=== PATIENT | male | born 1940 | race Caucasian/White ===

== ENCOUNTER 2016-10-24 16:00 | Emergency (ER) | payer OTHER, MEDICARE ==
[~2016-10-24] VITALS: Ht 188 cm; Wt 69.5 kg
[~2016-10-24 16:00] MED LIST: AMLO-114 PO; ASPCH81 PO; HYT/2 PO; LSN/2025 PO; SIMV10TA2 PO; TERA5CAP PO
[2016-10-24 16:23] VITALS: TEMP 37; Ht 188 cm; Wt 69.5 kg
[2016-10-24] MEDS ORDERED: SODIUM CHLORIDE 0.9% 1000ML 1,000 ML IV STA (17:27)
[2016-10-24 17:40] LABS: URINE APPEARANCE CLEAR (CLEAR); URINE BILIRUBIN NEG (NEG); URINE COLOR YELLOW; URINE NITRITE NEG (NEG); URINE SPECIFIC GRAVITY 1.015 (1.000-1.030); UROBILINOGEN NEG (NEG); ZZUR CULT IF INDIC CLEAN CATCH NO
[2016-10-24 17:41] LABS: BASO % 0.3 %; BASO ABS # 0.02 K/uL (0-0.2); COMPLETE YES; EOS % 2.5 %; HEMATOCRIT 39.4 % (42-52); LYMPH % 23.3 %; LYMPH ABS # 1.41 K/uL (1.2-3.4); MEAN CELL VOLUME 93.8 fL (80-100); MEAN CORPUSCULAR HEMOGLOBIN 33.1 pg (25-34); MEAN CORPUSCULAR HGB CONC 35.3 g/dl (32-36); MEAN PLATELET VOLUME 10.3 fL (7.4-10.4); MONO % 10.4 %; NEUT % 63.5 %; PLATELET COUNT 175 K/uL (130-400); WHITE BLOOD COUNT 6.05 K/uL (4.8-10.8)
[2016-10-24 17:42] LABS: MANUAL MICROSCOPIC REQUIRED? NO; REVIEW REQ? NO
[2016-10-24] MEDS ORDERED: OPTIRAY 320 IV PRN (17:45)
[2016-10-24] MEDS ORDERED: ASPCH81X PO (17:46)
[2016-10-24 17:58] LABS: BUN/CREATININE RATIO 13.9 (10-20); CALCIUM 9.3 mg/dl (8.5-10.1); POTASSIUM 3.4 mmol/L (3.5-5.1)
--- NOTE | 2016-10-24 18:51 | DIAGNOSTIC IMAGING REPORT ---
ABDOMEN AND PELVIS CT WITH IV CONTRAST CT DOSE: 418.05 mGy.cm HISTORY: Pain lower abd pain TECHNIQUE: Multiaxial CT images of the abdomen and pelvis were performed following the use of intravenous contrast. COMPARISON STUDY: 12/19/2015 FINDINGS: Dependent bibasilar atelectasis. Liver spleen and pancreas are unremarkable. Kidneys are negative for hydronephrosis. Several cysts are unchanged. Bowel pattern is considered nonobstructive. The may be a component of mild enteritis. Mild wall edema of components of the sigmoid. A nonspecific colitis is considered. There are again no obstructive characteristics. There is no evidence for abscess or collection. IMPRESSION: 1. Nonspecific sigmoid colitis. No evidence for abscess or collection. 2. No evidence for abscess collection or obstruction. 3. Stable hepatic and renal cysts. Electronically signed by: Kristopher Suarez M.D. 10/24/2016 6:50 PM Dictated Date/Time: 10/24/2016 6:47 PM
[2016-10-24 22:14] VITALS: BP 124/79; PULSE 61; O2SAT 97
--- NOTE | 2016-10-24 23:42 | EMERGENCY ROOM VISIT NOTE ---
History Report prepared by Idris: Naomi Pacheco Under the Supervision of: Dr. Denis Echavarria M.D. First contact with patient: 16:56 Chief Complaint: ABDOMINAL PAIN Stated Complaint: ABDOMINAL PAIN Nursing Triage Summary: Pt and state that pt has been having abd pain since aug. He thought he had the flu but lower abd pain has worsened. Denies recent N/V/D. Denies urinary symptoms. History of Present Illness The patient is a 76 year old male who presents to the Emergency Room with complaints of worsening constant lower abdominal pain that started about 1.5 months ago. He rates his discomfort as a 6-7/10 in severity. The patient states that the pain originally started in the end of last August. He thought that it was something viral, but today the pain got more severe. [facility] that he come into the ED for further evaluation. The patient states that [facility] has [facility]. The patient is also experiencing persistent diarrhea, but he has not had any stool samples done. Pt denies LOC, headache, fevers, chills, diaphoresis , visual changes, neck pain, chest pain, breathing difficulties, nausea, vomiting, back pain, melena, hematochezia, urinary symptoms, numbness, weakness , rash, or other complaints. The patient is unsure of when his most recent colonoscopy was. Source of History: patient Onset: about 1.5 months ago Position: abdomen (lower) Symptom Intensity: 6-7/10 Timing: intermittent, worsening Associated Symptoms: + diarrhea Review of Systems See HPI for pertinent positives and negatives. A total of ten systems were reviewed and were otherwise negative. Past Medical & Surgical Medical Problems: (1) Hypertension Surgical Problems: (1) History of appendectomy (2) History of tonsillectomy Family History FHx: myocardial infarction Social History Smoking Status: Former Smoker Alcohol Use: occasionally Drug Use: none Marital Status: Housing Status: lives with family Occupation Status: retired Current/Historical Medications Scheduled Amlodipine (Norvasc), 10 MG PO DAILY Aspirin (Aspirin Chewable), 81 MG PO DAILY Hctz/Lisinopril (Lisinopril/Hctz 20/25 Mg), 1 TAB PO DAILY Simvastatin (Zocor), 10 MG PO HS Terazosin (Hytrin), 5 MG PO HS Terazosin Hcl (Hytrin), 2 MG PO HS Allergies Coded Allergies: Hydromorphone (Verified Adverse Reaction, Intermediate, GI SYMPTOMS, ) nausea and vomiting Physical Exam Vital Signs Date Time Temp Pulse Resp B/P Pulse Ox O2 Delivery O2 Flow Rate FiO2 10/24/16 22:14 61 16 124/79 97 10/24/16 19:30 61 16 130/68 96 10/24/16 17:55 56 10/24/16 17:45 58 16 128/68 94 Room Air 10/24/16 16:23 37.0 70 20 139/70 96 Room Air Physical Exam GENERAL: Awake, alert, well-appearing, in no distress HENT: Normocephalic, atraumatic. Oropharynx unremarkable. EYES: Normal conjunctiva. Sclera non-icteric. NECK: Supple. No nuchal rigidity. FROM. No JVD. RESPIRATORY: Clear to auscultation. CARDIAC: Regular rate, normal rhythm. Extremities warm and well perfused. Pulses equal. ABDOMEN: Soft, non-distended. No tenderness to palpation. No rebound or guarding. No masses. RECTAL: Deferred. MUSCULOSKELETAL: Chest examination reveals no tenderness. The back is symmetrical on inspection without obvious abnormality. There is no CVA tenderness to palpation. No joint edema. LOWER EXTREMITIES: Calves are equal size bilaterally and non-tender. Trace edema. No discoloration. NEURO: Normal sensorium. No sensory or motor deficits noted. SKIN: No rash or jaundice noted. Medical Decision & Procedures ER Provider Diagnostic Interpretation: CT results as stated below per my review and radiologist interpretation ABDOMEN AND PELVIS CT WITH IV CONTRAST IMPRESSION: 1. Nonspecific sigmoid colitis. No evidence for abscess or collection. 2. No evidence for abscess collection or obstruction. 3. Stable hepatic and renal cysts. Electronically signed by: Kristopher Suarez M.D. 10/24/2016 6:50 PM Dictated Date/Time: 10/24/2016 6:47 PM Laboratory Results 10/24/16 17:10 Red Blood Count 4.20, Mean Corpuscular Volume 93.8, Mean Corpuscular Hemoglobin 33.1, Mean Corpuscular Hemoglobin Concent 35.3, Mean Platelet Volume 10.3, Neutrophils (%) (Auto) 63.5, Lymphocytes (%) (Auto) 23.3, Monocytes (%) (Auto) 10.4, Eosinophils (%) (Auto) 2.5, Basophils (%) (Auto) 0.3, Neutrophils # (Auto ) 3.84, Lymphocytes # (Auto) 1.41, Monocytes # (Auto) 0.63, Eosinophils # (Auto ) 0.15, Basophils # (Auto) 0.02 10/24/16 17:10 Test 10/24/16 17:10 10/24/16 17:14 White Blood Count 6.05 K/uL (4.8-10.8) Red Blood Count 4.20 M/uL (4.7-6.1) Hemoglobin 13.9 g/dL (14.0-18.0) Hematocrit 39.4 % (42-52) Mean Corpuscular Volume 93.8 fL (80-100) Mean Corpuscular Hemoglobin 33.1 pg (25-34) Mean Corpuscular Hemoglobin Concent 35.3 g/dl (32-36) Platelet Count 175 K/uL (130-400) Mean Platelet Volume 10.3 fL (7.4-10.4) Neutrophils (%) (Auto) 63.5 % Lymphocytes (%) (Auto) 23.3 % Monocytes (%) (Auto) 10.4 % Eosinophils (%) (Auto) 2.5 % Basophils (%) (Auto) 0.3 % Neutrophils # (Auto) 3.84 K/uL (1.4-6.5) Lymphocytes # (Auto) 1.41 K/uL (1.2-3.4) Monocytes # (Auto) 0.63 K/uL (0.11-0.59) Eosinophils # (Auto) 0.15 K/uL (0-0.5) Basophils # (Auto) 0.02 K/uL (0-0.2) RDW Standard Deviation 44.6 fL (36.4-46.3) RDW Coefficient of Variation 12.9 % (11.5-14.5) Immature Granulocyte % (Auto) 0.0 % Immature Granulocyte # (Auto) 0.00 K/uL (0.00-0.02) Anion Gap 9.0 mmol/L (3-11) Est Creatinine Clear Calc Drug Dose 59.8 ml/min Estimated GFR () 83.2 Estimated GFR (Non- 71.8 BUN/Creatinine Ratio 13.9 (10-20) Calcium Level 9.3 mg/dl (8.5-10.1) Total Bilirubin 1.5 mg/dl (0.2-1) Direct Bilirubin 0.3 mg/dl (0-0.2) Aspartate Amino Transf (AST/SGOT) 15 U/L (15-37) Alanine Aminotransferase (ALT/SGPT) 21 U/L (12-78) Alkaline Phosphatase 54 U/L (45-117) Total Protein 6.5 gm/dl (6.4-8.2) Albumin 3.9 gm/dl (3.4-5.0) Lipase 100 U/L (73-393) Urine Color YELLOW Urine Appearance CLEAR (CLEAR) Urine pH 6.0 (4.5-7.5) Urine Specific [place] 1.015 (1.000-1.030) Urine Protein NEG (NEG) Urine Glucose (UA) NEG (NEG) Urine Ketones NEG (NEG) Urine Occult Blood NEG (NEG) Urine Nitrite NEG (NEG) Urine Bilirubin NEG (NEG) Urine Urobilinogen NEG (NEG) Urine Leukocyte Esterase NEG (NEG) Date/Time Source Procedure Growth Status 10/24/16 19:00 Stool C.difficile Toxin B Gene (PCR) - Final No C. difficile toxin B gene detected Complete Laboratory results reviewed by me Medications Administered Medications (Trade) Dose Ordered Sig/Mei Route Start Time Stop Time Status Last Admin Dose Admin Sodium Chloride (Nss 1000ml) 1,000 ml @ 125 mls/hr Q8H STAT IV 10/24/16 17:27 10/24/16 23:02 DC 10/24/16 17:42 125 MLS/HR ED Course 1726: The patient was evaluated in room B2. A complete history and physical exam was performed. 1726: Ordered Sodium Chloride 1000 ml @ 125 mls/hr IV 2008: I reassessed the patient. I informed him that we are waiting on his C. Diff results. 2156: Discussed the patient's case with Dr. Jose A TODD. He will see the patient in the office for follow-up. 2204: I reevaluated the patient. Discussed results and discharge instructions: he verbalized understanding and agreement. The patient is ready for discharge. Medical Decision Triage Nursing notes reviewed. The patient's presentation and history were concerning for abdominal pain. Etiologies such as appendicitis, diverticulitis, obstruction, inflammatory bowel disease, renal colic, PUD, biliary pathology, pancreatitis, mesenteric ischemia, aortic pathology, infections, genitourinary, UTI, perforated viscus, as well as others were entertained. The patient was evaluated. His abdominal examination was rather benign. Stool culture was ordered. C. difficile was ordered. Laboratory testing performed. The patient underwent CT imaging. C. difficile seal testing was negative. His CBC, chemistry panel, LFTs and lipase were unremarkable. Laboratory testing revealed an unremarkable urinalysis. Stool culture pending. CT imaging didn't reveal a nonspecific colitis in the sigmoid. Consultation was made with gastroenterology, Dr. Naranjo. The case was discussed. The patient will be followed up in the office. He will be calling the office tomorrow. Dr. Naranjo asked for a face sheet with the patient's information to be faxed to the office. This was done. By the evaluation outlined above other emergent etiologies such as those listed in the differential, as well as others, were deemed relatively unlikely. The patient and were informed about the findings as listed above. All questions were answered and they were pleased with the treatment. Return instructions were outlined and the patient was discharged in stable condition. The patient was referred to gastroenterology for follow-up for a recheck of the current condition. The chart was completed utilizing [employer] Speech voice recognition software. Grammatical errors, random word insertions, pronoun errors, and incomplete sentences are an occasional consequence of this system due to software limitations, ambient noise, and hardware issues. Any formal questions or concerns about the content, text, or information contained within the body of this dictation should be directly addressed to the physician for clarification. Consults Time Called: 2114 Consulting Physician: Dr. Jose A TODD Returned Call: 2156 Discussed the patient's case with Dr. Jose A TODD. He will see the patient in the office for follow-up. Impression Primary Impression: Lower abdominal pain Additional Impression: Colitis Scribe Attestation The scribe's documentation has been prepared under my direction and personally reviewed by me in its entirety. I confirm that the note above accurately reflects all work, treatment, procedures, and medical decision making performed by me. Departure Information Dispostion Home / Self-Care Referrals No Doctor, Assigned (PCP) Forms HOME CARE DOCUMENTATION FORM, IMPORTANT VISIT INFORMATION Patient Instructions My [facility] Additional Instructions Diagnosis: 1. Colitis Acetaminophen(Tylenol) may be used for fever or pain. Use 1000mg every six hours as needed. Avoid using more than 4000mg in a 24 hour period. Rest and drink plenty of fluids as tolerated. Slow sips of water or sports drinks are recommended instead of large amounts all at once. Continue current medications. Return to the ER immediately for worsening or persistent abdominal pain, vomiting, fevers, chest pains, difficulty breathing, black or bloody stools, worsening of your condition, or as needed. Follow-up with Dr. Naranjo of gastroenterology. Call the office tomorrow morning around 8 AM for follow-up. The number is below. Follow up with your primary physician in 2-3 days for a recheck of your current condition. Problem Qualifiers
== END 2016-10-24 22:27 | disposition home or self-care (01) ==
LOC: C.EDB 16:01
DX: K52.9 Noninfective gastroenteritis and colitis, unspecified (principal); R10.30 Lower abdominal pain, unspecified; I10 Essential (primary) hypertension; Z79.82 Long term (current) use of aspirin; Z79.899 Other long term (current) drug therapy; Z98.890 Other specified postprocedural states; Z87.891 Personal history of nicotine dependence; Z88.5 Allergy status to narcotic agent

== ENCOUNTER 2018-04-26 09:13 | Emergency (ER) | payer OTHER, MEDICARE ==
[~2018-04-26] VITALS: Ht 188 cm; Wt 87.4 kg
[~2018-04-26 09:13] MED LIST changes: -AMLO-114 PO; +AMLO10TA3 PO; -ASPCH81 PO; +ASPCH81X PO; +LISI20TA11 PO; -LSN/2025 PO
[2018-04-26 09:18] VITALS: TEMP 36.7; Ht 188 cm; Wt 87.4 kg
[2018-04-26] MEDS ORDERED: CHOL1000 PO (10:32)
[2018-04-26] MEDS ORDERED: OMEG10007 PO (10:32)
[2018-04-26] MEDS ORDERED: RANI150T85 PO (10:32)
[2018-04-26] MEDS ORDERED: LISI20TA3 PO (10:32)
[2018-04-26 10:55] VITALS: BP 128/62; PULSE 56; O2SAT 96
--- NOTE | 2018-04-26 17:13 | EMERGENCY ROOM VISIT NOTE ---
History First contact with patient: 09:36 Chief Complaint: BACK PAIN Stated Complaint: BACK PAIN History of Present Illness The patient is a 78 year old white male who presents to the Emergency Room with complaints of intermittent back pain that has been present for several months. It has become worse at times. It was particularly severe this morning. Because it has been slowly getting worse, he thought he would come in and have it evaluated. No specific trauma. He denies any falls. He describes it as deep within the right flank. Right now it is mild. It does not seem to be reproducible. It may be slightly worse with certain motions. He states he cannot palpated. No difficulty with bowel or bladder function. He notes he does walk in a hunched over position due to his intermittent discomfort. No numbness or tingling. He denies any urinary symptoms. No other treatment. His accompanies him today. Review of Systems REVIEW OF SYSTEM: HEENT: No dizziness, visual problems, hearing loss, or tinnitus. There is no difficulty swallowing and no oral lesions are present. PULMONARY: No cough, shortness of breath, sputum production or hemoptysis. CARDIOVASCULAR: No chest pain, palpitations, shortness of breath or peripheral edema. GASTROINTESTINAL: No diarrhea, constipation, nausea, vomiting, or abdominal pain. GENITOURINARY: No dysuria, frequency, urgency or nocturia. NEUROLOGIC: No muscle tenderness, epilepsy or history of neurological problems. MUSCULOSKELETAL: No history of joint tenderness/swelling. Positive history of arthritis and arthralgias. SKIN: No rashes or lesions. PSYCHIATRIC: No history of depression or mental illness. ENDOCRINE: No history of diabetes, thyroid disorders, or abnormal hair growth. Past Medical/Surgical History Medical Problems: (1) Hypertension Surgical Problems: (1) History of appendectomy (2) History of tonsillectomy Dental surgery Family History FHx: myocardial infarction Significant for diabetes, heart disease, hypertension, cancer, lung disease, and seizures. Parents are . 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 Medications Scheduled Amlodipine (Norvasc), 10 MG PO DAILY Aspirin (Aspirin Chewable), 81 MG PO DAILY Cholecalciferol (Vitamin D3), 1 TAB PO DAILY Fish Oil ([place]-3), 1 CAP PO DAILY Hctz/Lisinopril (Lisinopril/Hctz 20/25 Mg), 1 TAB PO DAILY Lisinopril (Prinivil), 20 MG PO DAILY Ranitidine (Zantac), 150 MG PO DAILY Simvastatin (Zocor), 10 MG PO HS Physical Exam Vital Signs Date Time Temp Pulse Resp B/P (MAP) Pulse Ox O2 Delivery O2 Flow Rate FiO2 04/26/18 10:55 56 18 128/62 96 04/26/18 09:18 36.7 67 20 118/69 97 Room Air Physical Exam General: Well-developed, well-nourished, elderly white male, in no acute distress. Laying on the bed. Alert and oriented. Skin: Warm and dry with good turgor. No rashes or lesions. No ecchymosis or erythema. The patient is not diaphoretic. No abrasions. Heart: Heart RRR. No MGR. Peripheral pulses are 2+. Lungs: Lungs are clear to auscultation. No crackles rhonchi or wheezing. Good air movement. The patient is able to take a deep breath. Abdomen: Abdomen was inspected, auscultated, and palpated. Bowel sounds present x 4. Soft, nontender to palpation. No suprapubic discomfort. No hepato-splenomegaly. No masses noted. No rebound. No pain over McBurney's point. No CVA tenderness. Musculoskeletal: Gross motor function of the upper and lower extremities is intact and unremarkable. Medical Decision & Procedures Laboratory Results Test 04/26/18 10:02 Urine Color YELLOW Urine Appearance CLEAR (CLEAR) Urine pH 7.5 (4.5-7.5) Urine Specific [place] 1.014 (1.000-1.030) Urine Protein NEG (NEG) Urine Glucose (UA) NEG (NEG) Urine Ketones NEG (NEG) Urine Occult Blood NEG (NEG) Urine Nitrite NEG (NEG) Urine Bilirubin NEG (NEG) Urine Urobilinogen NEG (NEG) Urine Leukocyte Esterase NEG (NEG) UA obtained today was unremarkable. No blood or leukocytes. ED Course Patient and his were educated regarding today's findings. Conservative care measures were discussed. UA was obtained on suspicion of ureteral stones. There was no blood or leukocytes. I did offer to perform additional lab work as well as CT scan imaging of his abdomen to rule out other sources of his discomfort. Patient opted for watchful waiting. This was discussed several times with him. He felt comfortable and decided to give it more time to see if his symptoms would resolve. He does not recall lifting anything heavy. No unusual activity. If symptoms recur he should follow-up with his PCP or return to the ED for any acute changes. This was discussed several times. He may use Tylenol every 6 hours as needed for mild discomfort. Medical Decision Likelihood for ureterolithiasis and UTI is low given his lab work. This was discussed with the patient. Possibility of referred pain, muscle strain, nephrolithiasis, nephritis, bowel issue, and intra-abdominal mass were also considered among others. Possibility that his symptoms are related to his stooped posture were discussed. Medication Reconcilliation Current Medication List: was personally reviewed by me Blood Pressure Screening Patient's blood pressure: Normal blood pressure Impression Primary Impression: Right flank pain Departure Information Dispostion Home / Self-Care Condition GOOD Forms HOME CARE DOCUMENTATION FORM, TYLENOL USE, IMPORTANT VISIT INFORMATION Patient Instructions My [facility] Additional Instructions Tylenol every 6 hours as needed for discomfort Low-dose Motrin 200-400 mg every 6 hours as needed for discomfort-take this with food Follow-up with your PCP this week for reexamination Return to the ED for any acute worsening of symptoms and consider lab work and further imaging Avoid any heavy lifting Gentle stretching daily
== END 2018-04-26 10:55 | disposition home or self-care (01) ==
LOC: C.EDB 09:16 → C.EDA 10:55
DX: R10.31 Right lower quadrant pain (principal); R10.11 Right upper quadrant pain; M54.9 Dorsalgia, unspecified; I10 Essential (primary) hypertension; Z87.891 Personal history of nicotine dependence; Z79.82 Long term (current) use of aspirin; Z79.899 Other long term (current) drug therapy

== ENCOUNTER 2021-02-15 13:11 | Observation (INO) ==
--- NOTE | 2021-02-15 14:36 | XRay Report ---
XR chest 1V portable HISTORY: 81 years-old Male Chest Pain acute atypical chest pain COMPARISON: Chest radiograph 04/22/2013 TECHNIQUE: Portable AP view of the chest FINDINGS: Cardiac mediastinal and hilar silhouettes are within normal limits. Calcified plaque of the thoracic aorta. No pneumothorax, pleural effusion, airspace consolidation or overt pulmonary edema. Spondyliti c spurring of the spine. IMPRESSION: No acute process. ACT 112: Negative or not required by law. The above report was generated using voice recognition software. It may contain grammatical, syntax o r spelling errors. Electronically signed by: eJt Worthington M.D. 02/15/2021 2:35 PM
--- NOTE | 2021-02-15 14:41 | Emergency Department Note ---
Impression & Plan Chest pain, Acute confusion ED Provider Note NAME: ANA MARIA ALMODOVAR AGE: 81 SEX: M : 1940 ARRIVES VIA: Walk-In INFORMANT: Patient, the patient's significant other ED PROVIDER(S): Dimitri Rosa DO CHIEF COMPLAINT: Chest pain HPI: The patient is an 81-year-old male who presented to the emergency department with his significant other for an evaluation of chest pain. The patient started having chest pain earlier. 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 The patient was doing well but then all of a sudden clutched his chest. According to his significant other he appeared to be in significant pain. The patient states that this lasted for approximately 1 hour. The pain really spontaneously. He denies having any shortness of breath. He has no pain at this time. He denies having any headache or recent trauma. The patient denies having any lower extremity swelling or pain. His significant other also gives part of the history and apparently they went to the primary care physician yesterday for routine evaluation. No medication changes were made. The patient denies having any recent traveling or exposure to COVID-19. He did not see a provider today prior to coming to the emergency department. ROS: See above HPI for pertinent positives & negatives. A total of 10 systems reviewed and were otherwise negative. PAST MEDICAL HISTORY: See Below PAST SURGICAL HISTORY: See Below FAMILY HISTORY: See Below SOCIAL HISTORY: See Below HOME MEDICATIONS: See Below ALLERGIES: See Below VITALS: See Below PHYSICAL EXAMINATION: GENERAL: Patient is awake alert in no acute distress patient is resting comfortably and showing no signs of anxiety EYES: The conjunctivae are clear. The pupils are round and reactive. EARS, NOSE, MOUTH AND THROAT: The nose is without any evidence of any deformity. NECK: The neck is nontender and supple. RESPIRATORY: Normal respiratory effort is noted there is no evidence of wheezing rhonchi or rales CARDIOVASCULAR: Regular rate and rhythm noted there no murmurs rubs or gallops normal S1 normal S2. GASTROINTESTINAL: The abdomen is soft. Abdomen is nontender. MUSCULOSKELETAL/EXTREMITIES: There is no evidence of gross deformity full range of motion is noted in the hips and shoulders. SKIN: There is no obvious evidence of any rash. There are no petechiae, pallor or cyanosis noted. NEUROLOGIC: The patient is awake and alert. The patient is oriented to person place but not time. He is able to do simple math at this time. There is no facial droop noted. Strength is symmetric. Patient has a steady gait. MEDICAL DECISION MAKING: The patient is an 81-year-old male who presented to the emergency department for an evaluation of chest pain. The patient had an acute onset of chest pain while at rest. The patient presented but had no pain upon presentation. He was also found to be confused while he was in the emergency department. This was a new finding for him and his significant other did not notice it earlier. I discussed the patient's laboratory and radiographic studies with him. I also discussed the limitations of the emergency department work-up for chest pain with him. Ultimately [facility] Given his age and comorbidities he may require further inpatient work-up. The patient was agreeable to this. Triage Nursing notes reviewed. Prior medical records reviewed Vital Signs: reviewed and remarkable for elevated blood pressure. Differential diagnosis: Cardiac ischemia, aortic dissection, pulmonary embolism, pneumothorax, pneumonia , pericarditis, myocarditis, esophageal rupture, GERD, cholecystitis, pancreatitis, musculoskeletal, as well as other pathologies. ER treatment provided: See below Diagnostics interpreted by me: ECG: EKG was obtained in the emergency department. My interpretation is normal sinus rhythm at 61 bpm. There were no PVCs noted. Right bundle branch block pattern was appreciated. This was compared to a tracing from April 162012. No significant changes were noted. Cardiac Monitoring: An order was placed for continuous cardiac monitoring. The monitor shows a rate of 65 bpm with sinus rhythm. Laboratory studies: As stated above and show below. Imaging studies: See below Consultation(s): 1725: I discussed this case with Dr. Gaitan who [facility] He will evaluate the patient in the emergency department. Past Med/Surg History Medical History (Updated 02/15/21 @ 20:32 by Dimitri Rosa DO) Colitis Hiatal hernia Hypertension Surgical History History of appendectomy History of tonsillectomy Social History Smoking Status: Former smoker Tobacco Type: Cigarettes Preferred Language: Peruvian Feels Safe at Home: Yes Allergies Allergies Allergy/AdvReac Type Severity Reaction Status Date / Time hydromorphone AdvReac Intermediate GI SYMPTOMS Verified 02/15/21 17:34 Home Meds Home Medications Medication Instructions Recorded Confirmed amlodipine 10 mg PO DAILY 02/15/21 02/15/21 aspirin [Aspirin Low Dose] 81 mg PO DAILY 02/15/21 02/15/21 cholecalciferol (vitamin D3) 25 mcg PO DAILY 02/15/21 02/15/21 [Vitamin D3] donepezil 10 mg PO HS 02/15/21 02/15/21 lisinopril-hydrochlorothiazide 1 tab PO DAILY 02/15/21 02/15/21 omega-3 fatty acids [Fish Oil 1,000 mg PO BID 02/15/21 02/15/21 Concentrate] terazosin 2 mg PO HS 02/15/21 02/15/21 terazosin 5 mg PO HS 02/15/21 02/15/21 Results & Data (ED) Vital Signs Vital Signs - 24 hr 02/15/21 13:16 02/15/21 13:19 02/15/21 14:34 Temperature 36.6 C Temperature Source Temporal Artery Scan Pulse Rate 77 56 L Pulse Rate [Left Radial] Pulse Rate from SpO2 Sensor 55 L Pulse Rhythm Pulse Rhythm [Left Radial] Pulse Strength [Left Radial] Respiratory Rate 18 18 Respiratory Effort / Characteristics Non-Labored Spontaneous Non-Labored Spontaneous Respiratory Depth Normal Normal Respiratory Pattern Regular Blood Pressure 125/68 118/65 Blood Pressure [Left Radial Artery] Blood Pressure Mean 87 82 Blood Pressure Mean [Left Radial Artery] Blood Pressure Position Sitting Blood Pressure Position [Left Radial Artery] Pulse Oximetry 98 98 Oxygen Delivery Method Room Air Room Air Oxygen Flow Rate Sepsis Recent Fever Within 48 Hours No Sepsis New/Unexplained Change in Mental Status N/A Sepsis Action Taken by Nursing No Action Required 02/15/21 14:36 02/15/21 14:46 02/15/21 15:00 Temperature Temperature Source Pulse Rate 55 L 63 56 L Pulse Rate [Left Radial] 63 Pulse Rate from SpO2 Sensor 55 L Pulse Rhythm Regular Pulse Rhythm [Left Radial] Regular Pulse Strength [Left Radial] Normal Respiratory Rate 18 20 17 Respiratory Effort / Characteristics Non-Labored Spontaneous Respiratory Depth Normal Respiratory Pattern Blood Pressure 134/61 Blood Pressure [Left Radial Artery] 118/65 Blood Pressure Mean 85 Blood Pressure Mean [Left Radial Artery] 82 Blood Pressure Position Blood Pressure Position [Left Radial Artery] Sitting Pulse Oximetry 97 96 Oxygen Delivery Method Room Air Oxygen Flow Rate 96 Sepsis Recent Fever Within 48 Hours Sepsis New/Unexplained Change in Mental Status Sepsis Action Taken by Nursing 02/15/21 15:01 02/15/21 15:30 02/15/21 15:31 Temperature Temperature Source Pulse Rate 53 L 55 L Pulse Rate [Left Radial] Pulse Rate from SpO2 Sensor 54 L 56 L Pulse Rhythm Pulse Rhythm [Left Radial] Pulse Strength [Left Radial] Respiratory Rate 11 L 12 Respiratory Effort / Characteristics Respiratory Depth Respiratory Pattern Blood Pressure 142/72 H Blood Pressure [Left Radial Artery] Blood Pressure Mean 95 Blood Pressure Mean [Left Radial Artery] Blood Pressure Position Blood Pressure Position [Left Radial Artery] Pulse Oximetry 98 98 Oxygen Delivery Method Oxygen Flow Rate Sepsis Recent Fever Within 48 Hours Sepsis New/Unexplained Change in Mental Status Sepsis Action Taken by Nursing 02/15/21 16:00 02/15/21 16:01 02/15/21 16:30 Temperature Temperature Source Pulse Rate 53 L 54 L 55 L Pulse Rate [Left Radial] Pulse Rate from SpO2 Sensor 55 L 55 L 55 L Pulse Rhythm Pulse Rhythm [Left Radial] Pulse Strength [Left Radial] Respiratory Rate 10 L 9 L 18 Respiratory Effort / Characteristics Respiratory Depth Respiratory Pattern Blood Pressure 145/69 H 139/74 Blood Pressure [Left Radial Artery] Blood Pressure Mean 94 95 Blood Pressure Mean [Left Radial Artery] Blood Pressure Position Blood Pressure Position [Left Radial Artery] Pulse Oximetry 97 97 98 Oxygen Delivery Method Oxygen Flow Rate Sepsis Recent Fever Within 48 Hours Sepsis New/Unexplained Change in Mental Status Sepsis Action Taken by Nursing 02/15/21 16:31 02/15/21 17:00 02/15/21 17:01 Temperature Temperature Source Pulse Rate 55 L 63 57 L Pulse Rate [Left Radial] Pulse Rate from SpO2 Sensor 56 L Pulse Rhythm Pulse Rhythm [Left Radial] Pulse Strength [Left Radial] Respiratory Rate 16 21 14 Respiratory Effort / Characteristics Respiratory Depth Respiratory Pattern Blood Pressure 143/69 H Blood Pressure [Left Radial Artery] Blood Pressure Mean 93 Blood Pressure Mean [Left Radial Artery] Blood Pressure Position Blood Pressure Position [Left Radial Artery] Pulse Oximetry 97 Oxygen Delivery Method Oxygen Flow Rate Sepsis Recent Fever Within 48 Hours Sepsis New/Unexplained Change in Mental Status Sepsis Action Taken by Nursing 02/15/21 17:30 02/15/21 18:00 02/15/21 18:01 Temperature Temperature Source Pulse Rate 54 L 55 L 57 L Pulse Rate [Left Radial] Pulse Rate from SpO2 Sensor 54 L 56 L 58 L Pulse Rhythm Pulse Rhythm [Left Radial] Pulse Strength [Left Radial] Respiratory Rate 16 17 15 Respiratory Effort / Characteristics Respiratory Depth Respiratory Pattern Blood Pressure 151/70 H 165/78 H Blood Pressure [Left Radial Artery] Blood Pressure Mean 97 107 Blood Pressure Mean [Left Radial Artery] Blood Pressure Position Blood Pressure Position [Left Radial Artery] Pulse Oximetry 100 98 98 Oxygen Delivery Method Oxygen Flow Rate Sepsis Recent Fever Within 48 Hours Sepsis New/Unexplained Change in Mental Status Sepsis Action Taken by Nursing 02/15/21 18:30 02/15/21 19:43 02/15/21 20:00 Temperature Temperature Source Pulse Rate 57 L 57 L 60 Pulse Rate [Left Radial] Pulse Rate from SpO2 Sensor 57 L 57 L 60 Pulse Rhythm Pulse Rhythm [Left Radial] Pulse Strength [Left Radial] Respiratory Rate 12 14 13 Respiratory Effort / Characteristics Respiratory Depth Respiratory Pattern Blood Pressure 165/79 H 174/73 H 154/71 H Blood Pressure [Left Radial Artery] Blood Pressure Mean 107 106 98 Blood Pressure Mean [Left Radial Artery] Blood Pressure Position Blood Pressure Position [Left Radial Artery] Pulse Oximetry 98 96 96 Oxygen Delivery Method Oxygen Flow Rate Sepsis Recent Fever Within 48 Hours Sepsis New/Unexplained Change in Mental Status Sepsis Action Taken by Prison Medications Current Medication List: was personally reviewed by me Laboratory Data Attestation: I reviewed the patient's lab results. Result diagrams: 02/15/21 14:35 02/15/21 14:35 Lab Results 02/15/21 02/15/21 02/15/21 Range/Units 14:35 14:35 14:35 WBC 6.44 (4.8-10.8) K/uL RBC 4.02 L (4.7-6.1) M/uL Hgb 13.5 L (14.0-18.0) g/dL Hct 38.8 L (42-52) % MCV 96.5 (80-100) fL MCH 33.6 (25-34) pg MCHC 34.8 (32-36) g/dL RDW Std Deviation 45.8 (36.4-46.3) fL RDW Coeff of Jonel 13.0 (11.5-14.5) % Plt Count 177 (130-400) K/uL MPV 9.9 (7.4-10.4) fL Immature Gran % (Auto) 0.2 % Neut % (Auto) 73.0 % Lymph % (Auto) 16.8 % [place] % (Auto) 7.9 % Eos % (Auto) 1.9 % Baso % (Auto) 0.2 % Neut # (Auto) 4.71 (1.4-6.5) K/uL Lymph # (Auto) 1.08 L (1.2-3.4) K/uL [place] # (Auto) 0.51 (0.11-0.59) K/uL Eos # (Auto) 0.12 (0-0.5) K/uL Baso # (Auto) 0.01 (0-0.2) K/uL Immature Gran # (Auto) 0.01 (0.00-0.02) K/uL PT 10.4 (9.0-12.0) Seconds INR 1.0 (0.9-1.1) APTT 27.6 (21.0-31.0) Seconds PTT Ratio 1.0 Sodium 139 (136-145) mmol/L Potassium 3.6 (3.5-5.1) mmol/L Chloride 106 (98-107) mmol/L Carbon Dioxide 27 (21-32) mmol/L Anion Gap 6.0 (3-11) BUN 20 H (7-18) mg/dl Creatinine 1.10 (0.6-1.4) mg/dl Est Cr Clr Drug Dosing 57.6 ml/min Est GFR ( Amer) 71.6 ml/min Est GFR (Non-Af Amer) 61.8 ml/min BUN/Creatinine Ratio 18.0 (10-20) Glucose 101 H (70-99) mg/dl Calcium 9.1 (8.5-10.1) mg/dl Total Bilirubin 1.9 H (0.2-1) mg/dl AST 10 L (15-37) U/L ALT 16 (12-78) U/L Alkaline Phosphatase 53 (45-117) U/L Troponin I < 0.015 (0-0.045) ng/ml Total Protein 6.3 L (6.4-8.2) gm/dl Albumin 3.8 (3.4-5.0) gm/dl Globulin 2.5 (2.5-4.0) gm/dl Albumin/Globulin Ratio 1.5 (0.9-2) COVID-19 Eval Order SARS-CoV-2 (PCR) (Negative) 02/15/21 02/15/21 Range/Units 17:35 17:35 WBC (4.8-10.8) K/uL RBC (4.7-6.1) M/uL Hgb (14.0-18.0) g/dL Hct (42-52) % MCV (80-100) fL MCH (25-34) pg MCHC (32-36) g/dL RDW Std Deviation (36.4-46.3) fL RDW Coeff of Jonel (11.5-14.5) % Plt Count (130-400) K/uL MPV (7.4-10.4) fL Immature Gran % (Auto) % Neut % (Auto) % Lymph % (Auto) % [place] % (Auto) % Eos % (Auto) % Baso % (Auto) % Neut # (Auto) (1.4-6.5) K/uL Lymph # (Auto) (1.2-3.4) K/uL [place] # (Auto) (0.11-0.59) K/uL Eos # (Auto) (0-0.5) K/uL Baso # (Auto) (0-0.2) K/uL Immature Gran # (Auto) (0.00-0.02) K/uL PT (9.0-12.0) Seconds INR (0.9-1.1) APTT (21.0-31.0) Seconds PTT Ratio Sodium (136-145) mmol/L Potassium (3.5-5.1) mmol/L Chloride (98-107) mmol/L Carbon Dioxide (21-32) mmol/L Anion Gap (3-11) BUN (7-18) mg/dl Creatinine (0.6-1.4) mg/dl Est Cr Clr Drug Dosing ml/min Est GFR ( Amer) ml/min Est GFR (Non-Af Amer) ml/min BUN/Creatinine Ratio (10-20) Glucose (70-99) mg/dl Calcium (8.5-10.1) mg/dl Total Bilirubin (0.2-1) mg/dl AST (15-37) U/L ALT (12-78) U/L Alkaline Phosphatase (45-117) U/L Troponin I (0-0.045) ng/ml Total Protein (6.4-8.2) gm/dl Albumin (3.4-5.0) gm/dl Globulin (2.5-4.0) gm/dl Albumin/Globulin Ratio (0.9-2) COVID-19 Eval Order Covid19 at [facility] SARS-CoV-2 (PCR) NEGATIVE (Negative) Imaging Data Radiologist's Impression: Chest X-Ray 02/15/21 13:20 XR chest 1V portable HISTORY: 81 years-old Male Chest Pain acute atypical chest pain COMPARISON: Chest radiograph 04/22/2013 TECHNIQUE: Portable AP view of the chest FINDINGS: Cardiac mediastinal and hilar silhouettes are within normal limits. Calcified plaque of the thoracic aorta. No pneumothorax, pleural effusion, airspace consolidation or overt pulmonary edema. Spondylitic spurring of the spine. IMPRESSION: No acute process. ACT 112: Negative or not required by law. The above report was generated using voice recognition software. It may contain grammatical, syntax or spelling errors. Electronically signed by: Jet Worthington M.D. 02/15/2021 2:[address] 02/15/21 14:24 CT head/brain wo con CLINICAL HISTORY: Acute change in mental status COMPARISON STUDY: No previous studies for comparison. TECHNIQUE: Axial CT of the brain is performed from the vertex to the skull base. IV contrast was not administered for this examination. A dose lowering technique was utilized adhering to the principles of ALARA. CT DOSE: 614.27 mGy.cm FINDINGS: No intra or extra-axial mass lesions are visualized. There is no CT evidence of acute cortical infarction. There is no evidence of midline shift. There is no acute hemorrhage. No calvarial fractures are visualized. There are mild white matter hypodensities likely on a small vessel basis. There is no evidence of pathologic ventricular dilatation. There is no evidence of acute sinusitis IMPRESSION: No acute intracranial findings ACT 112: Negative or not required by law. Electronically signed by: Jarred Merrill M.D. 02/15/2021 3:33 PM Discharge Plan Visit Data Chief Complaint: Chest Pain Stated Complaint: CHEST PAINS ED Provider: Dimitri Rosa Discharge Problem: Chest pain, Acute confusion Forms Stand Alone Forms: [facility] Prescriptions Prescriptions: No Action terazosin 5 mg Capsule 5 mg PO HS RF: 0 omega-3 fatty acids [Fish Oil Concentrate] 1,000 mg Capsule 1,000 mg PO BID RF: 0 donepezil 10 mg Tablet 10 mg PO HS RF: 0 aspirin [Aspirin Low Dose] 81 mg Tablet,Delayed Release (Dr/Ec) 81 mg PO DAILY RF: 0 terazosin 2 mg Capsule 2 mg PO HS RF: 0 amlodipine 10 mg Tablet 10 mg PO DAILY RF: 0 lisinopril-hydrochlorothiazide 20-25 mg Tablet 1 tab PO DAILY RF: 0 cholecalciferol (vitamin D3) [Vitamin D3] 25 mcg (1,000 unit) Tablet 25 mcg PO DAILY RF: 0 Discharge Problem: Chest pain Qualifiers: Chest pain type: unspecified Qualified Code(s): R07.9 - Chest pain, unspecified
[2021-02-15 14:54] LABS: Basophils # (auto) 0.01 K/uL (0-0.2); Basophils % (auto) 0.2 %; Eosinophils # (auto) 0.12 K/uL (0-0.5); Eosinophils % (auto) 1.9 %; Hematocrit (blood only) 38.8 % (42-52); Hemoglobin 13.5 g/dL (14.0-18.0); Immature Granulocytes # (auto) 0.01 K/uL (0.00-0.02); Immature Granulocytes % (auto) 0.2 %; Lymphocytes # (auto) 1.08 K/uL (1.2-3.4); Lymphocytes % (auto) 16.8 %; Mean Corpuscular Hemoglobin 33.6 pg (25-34); Mean Corpuscular Hgb Conc 34.8 g/dL (32-36); Mean Corpuscular Volume 96.5 fL (80-100); Mean Platelet Volume 9.9 fL (7.4-10.4); Monocytes # (auto) 0.51 K/uL (0.11-0.59); Monocytes % (auto) 7.9 %; Neutrophils # (auto) 4.71 K/uL (1.4-6.5); Platelet Count 177 K/uL (130-400); RDW Standard Deviation 45.8 fL (36.4-46.3); Red Blood Count 4.02 M/uL (4.7-6.1); White Blood Count 6.44 K/uL (4.8-10.8)
[2021-02-15 15:11] LABS: Partial Thromboplastin Time 27.6 Seconds (21.0-31.0); Prothrombin Time 10.4 Seconds (9.0-12.0)
[2021-02-15 15:17] LABS: Alanine Aminotransferase 16 U/L (12-78); Albumin Level 3.8 gm/dl (3.4-5.0); Aspartate Aminotransferase 10 U/L (15-37); Blood Urea Nitrogen 20 mg/dl (7-18); Calcium 9.1 mg/dl (8.5-10.1); Carbon Dioxide 27 mmol/L (21-32); Chloride 106 mmol/L (98-107); Creatinine Clr Calc Pharmacy 57.6 ml/min; Est GFR (African American) 71.6 ml/min; Est GFR (Non-African American) 61.8 ml/min; Glucose 101 mg/dl (70-99); Potassium 3.6 mmol/L (3.5-5.1); Sodium 139 mmol/L (136-145)
[2021-02-15 15:22] LABS: Albumin Globulin Ratio 1.5 (0.9-2); Alkaline Phosphatase 53 U/L (45-117); Bilirubin,Total 1.9 mg/dl (0.2-1); Globulin 2.5 gm/dl (2.5-4.0); Total Protein 6.3 gm/dl (6.4-8.2); Troponin I < 0.015 ng/ml (0-0.045)
--- NOTE | 2021-02-15 15:34 | CT Scan Report ---
CT head/brain wo con CLINICAL HISTORY: Acute change in mental status COMPARISON STUDY: No previous studies for comparison. TECHNIQUE: Axial CT of the brain is performed from the vertex to the skull base. IV contrast was not administered for this examination. A dose lowering technique was utilized adhering to the principles of ALARA. CT DOSE: 614.27 mGy.cm FINDINGS: No intra or extra-axial mass lesions are visualized. There is no CT evidence of acute cortical infarc tion. There is no evidence of midline shift. There is no acute hemorrhage. No calvarial fractures ar e visualized. There are mild white matter hypodensities likely on a small vessel basis. There is no evidence of pathologic ventricular dilatation. There is no evidence of acute sinusitis IMPRESSION: No acute intracranial findings ACT 112: Negative or not required by law. Electronically signed by: Jarred Merrill M.D. 02/15/2021 3:33 PM
--- NOTE | 2021-02-15 18:45 | History & Physical Report ---
Date of Service February 15, 2021 Assessment & Plan (1) Chest pain: Ricardo is an 81-year-old male with a past medical history of chronic memory loss, hypertension, and GERD with hiatal hernia who presents for an episode of chest pain which resolved by the time of admission And chronic worsening memory deficits. Chest pain/epigastric pain, suspect noncardiac Resolved by time of inpatient admission EKG with scattered nonspecific ST segment changes and right bundle branch block, no change compared to 2013 Troponin on admission negative. 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 Daughter noted that he had memory testing with Dr. Vince Pringle at [facility] but patient did not have a good therapeutic relationship and did not attend follow-up. 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 He has not been seen for follow-up since and daughter are at the bedside at time of HPI, note that he is near his normal baseline mentation On physical exam he is oriented to name and city only, is not oriented to day, month, or year Suspect that he has chronic memory loss masked by his intelligence and ability to compensate Discussed pillboxes and additional help as needed at home during admission Patient may have accidental polypharmacy/medication overdose as he was managing his own medications and noted he had several pill bottles lined up of the same medication. BMP daily. CTH: No acute findings Recommend outpatient follow-up for chronic memory loss, patient may benefit [facility] home health services CBC/BMP daily, B12 pending, defer additional work-up at this time (3) Hypertension: Hypertension Continue amlodipine, lisinoprilhydrochlorothiazide, aspirin home doses at this time DVT prophylaxis: Lovenox Diet: Regular Disposition: Medical/surgical with telemetry CODE STATUS: DNR/DNI (4) History of tonsillectomy: (5) History of appendectomy: History of Present Illness Chief Complaint: Chest pain Primary Care Provider: SUKI Fox Ricardo is an 81-year-old male with a past medical history of chronic memory loss, hypertension, and GERD with hiatal hernia who presents for an episode of chest pain which resolved by the time of admission. , Seen at the bedside with his and daughter. They note that around 11:00 day of admission patient "did not feel good "and had a 2/10 achy pain in his epigastrium which did not spread to his upper chest or shoulder. He did not have any associated shortness of breath, sweating, dizziness, lightheadedness, dizziness. He is not sure how long the pain lasted, but noted it had completely resolved by the time he arrived in the ER. He noted he did have a heavy meal out last night which was unusual for him and his . 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 He has never had a heart attack or stroke, notes he did have a sibling with multiple bypass around age 60. He follows with the [facility] for routine care. He does not use tobacco products. He is seen at the bedside with his , his and his daughter endorse that he has had chronic worsening memory problems. Patient had been seen by Dr. 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 No acute change, but he has not been back for neurology follow-up in over a year He also has a history of hiatal hernia, has been on reflux medications last renewed the time which have not been taken recently. Had a salmon dinner out the night before symptoms, otherwise no recent change in diet and no recent GERD or reflux symptoms. No known episodes of esophageal spasm Medications: Reviewed, patient notes that patient has pill bottles arranged on a ledge but often has duplicate medications and his was very concerned that he may be taking multiple doses of certain medications by accident. This was discussed yesterday with the [facility] provider, they have just purchased a pillbox and are working on setting aside meds as Mr. Villa had previously managed his own medications daily. Medications updated in EMR. Medical history: As above Family history: Cardiac bypass in sibling as noted above Surgical history, contributory Social: Patient lives at home with his . Denies tobacco use. Approximately 3 beers per week alcohol use. Denies recreational drug use. Denies medical marijuana use DNR/DNI, medical decision-making forms were brought with them on admission Allergies Allergy/AdvReac Type Severity Reaction Status Date / Time hydromorphone AdvReac Intermediate GI SYMPTOMS Verified 02/15/21 17:34 Home Medications Medication Instructions Recorded Confirmed Type amlodipine 10 mg PO DAILY 02/15/21 02/15/21 History aspirin [Aspirin Low Dose] 81 mg PO DAILY 02/15/21 02/15/21 History cholecalciferol (vitamin D3) 25 mcg PO DAILY 02/15/21 02/15/21 History [Vitamin D3] donepezil 10 mg PO HS 02/15/21 02/15/21 History lisinopril-hydrochlorothiazide 1 tab PO DAILY 02/15/21 02/15/21 History omega-3 fatty acids [Fish Oil 1,000 mg PO BID 02/15/21 02/15/21 History Concentrate] terazosin 2 mg PO HS 02/15/21 02/15/21 History terazosin 5 mg PO HS 02/15/21 02/15/21 History Past Med/Surg History Medical History (Updated 02/15/21 @ 18:51 by Bowen Tai MD) Colitis Hiatal hernia Hypertension Surgical History History of appendectomy History of tonsillectomy Social History Smoking Status: Former smoker Tobacco Type: Cigarettes Preferred Language: Azeri Feels Safe at Home: Yes Review of Systems Review of Systems: All systems reviewed & are unremarkable except as noted in HPI & below Physical Exam Physical Exam: General: NAD. Cooperative.Patient is oriented to name and city only. Not oriented to day, month, year, or building. HEENT: Atraumatic, normocephalic. Pulm: CTAB A&P. -wheezes, -rales, -rhonchi. Symmetrical chest rise. No increase work of breathing. No respiratory distress. Cardiac: RRR, -mrg. Radial pulses intact and symmetrical. Abdominal: Nontender, nondistended, soft. BS present. CRANIAL NERVES: II: Pupils equal and reactive, no relative afferent pupillary defect, no VF cuts III, IV, : EOM intact, no gaze preference or deviation, no nystagmus. V: normal sensation in V1, V2, and V3 segments bilaterally VII: no asymmetry, no nasolabial fold flattening VIII: normal hearing to speech IX, X: normal palatal elevation, no uvular deviation XI: 5/5 head turn and 5/5 shoulder shrug bilaterally XII: midline tongue protrusion MOTOR: RUE: 5/5 Shoulder internal rotation, external rotation, flexion, extension, abduction, adduction 5/5 Elbow flexion/extension, wrist flexion/extension 5/5 charge account identification clerk strength, finger flexion/extension, interosseus LUE: 5/5 Shoulder internal rotation, external rotation, flexion, extension, abduction, adduction 5/5 Elbow flexion/extension, wrist flexion/extension 5/5 charge account identification clerk strength, finger flexion/extension, interosseus RLE: 5/5 to hip flexion/extension, knee flexion/extension, ankle dorsiflexion/plantarflexion LLE: 5/5 to hip flexion/extension, knee flexion/extension, ankle dorsiflexion/plantarflexion REFLEXES: 2/4 patellar, no clonus SENSORY: Normal to touch in upper and lower extremities without deficit or asymmetry Results & Data Results & Data ([facility]) Vital Signs (Past 12 Hours) Vital Signs Temp Pulse Pulse Resp BP BP Pulse Ox 02/15/21 18:01 57 L 15 98 02/15/21 18:00 55 L 17 165/78 H 98 02/15/21 17:30 54 L 16 151/70 H 100 02/15/21 17:01 57 L 14 02/15/21 17:00 63 21 143/69 H 02/15/21 16:31 55 L 16 97 02/15/21 16:30 55 L 18 139/74 98 02/15/21 16:01 54 L 9 L 97 02/15/21 16:00 53 L 10 L 145/69 H 97 02/15/21 15:31 55 L 12 98 02/15/21 15:30 142/72 H 98 02/15/21 15:01 53 L 11 L 02/15/21 15:00 56 L 17 134/61 02/15/21 14:46 63 63 20 118/65 96 02/15/21 14:36 55 L 18 97 02/15/21 14:34 56 L 18 118/65 98 02/15/21 13:16 36.6 C 77 18 125/68 98 Code Status & VTE Plan VTE Prophylaxis Plan VTE Prophylaxis will be ordered: Yes Supervising Physician Co-Signing Physician Notes Patient seen and examined, discussed at length with resident. Agree with his note above. Patient at the time my evaluation was asymptomatic. He did have some chest pain which sounded to be more GI than cardiac. Currently here for a cardiac work-up. Of more concern is the patient's chronic memory loss, consistent with worsening senile dementia. Patient apparently had memory testing and did quite poorly. 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 Plan will be to observe overnight, if cardiac work-up is negative then patient can follow-up short-term with neurology or neuropsychiatry for further work-up of his dementia. Resident Activity Tracking Resident Involvement: Resident Care Provided Care Provided: Adult Hospital Medicine
[2021-02-15] MEDS ORDERED: NITROGLYCERIN SL 0.4 MG/TAB TAB SL PRN (21:08)
[2021-02-15] MEDS ORDERED: ENOXAPARIN INJ 30 MG/0.3 ML SYR SQ SCH (21:30)
[2021-02-15] MEDS ORDERED: DONEPEZIL HCL 10 MG TAB PO SCH (21:30)
[2021-02-15] MEDS ORDERED: TERAZOSIN HCL 5 MG CAP PO SCH (21:30)
[2021-02-15] MEDS ORDERED: TERAZOSIN HCL 1 MG CAP PO SCH (21:30)
[2021-02-15] MEDS: OMEGA-3 (PURIFIED FISH OIL) 1 GM CAP PO SCH (22:27)
[2021-02-15] MEDS: FAMOTIDINE 20 MG in SYRINGE 3 ML IV SCH (22:33)
[2021-02-16 04:13] LABS: Basophils # (auto) 0.02 K/uL (0-0.2); Basophils % (auto) 0.3 %; Eosinophils # (auto) 0.19 K/uL (0-0.5); Eosinophils % (auto) 3.2 %; Hematocrit (blood only) 38.4 % (42-52); Lymphocytes # (auto) 1.68 K/uL (1.2-3.4); Lymphocytes % (auto) 28.4 %; Mean Corpuscular Hgb Conc 33.9 g/dL (32-36); Mean Corpuscular Volume 97.5 fL (80-100); Mean Platelet Volume 9.9 fL (7.4-10.4); Monocytes # (auto) 0.41 K/uL (0.11-0.59); Monocytes % (auto) 6.9 %; Neutrophils # (auto) 3.62 K/uL (1.4-6.5); Neutrophils % (auto) 61.2 %; Platelet Count 165 K/uL (130-400); RDW Coefficient of Variation 12.9 % (11.5-14.5); RDW Standard Deviation 46.4 fL (36.4-46.3); Red Blood Count 3.94 M/uL (4.7-6.1); White Blood Count 5.92 K/uL (4.8-10.8)
[2021-02-16 04:30] LABS: BUN Creatinine Ratio 18.7 (10-20); Blood Urea Nitrogen 18 mg/dl (7-18); Calcium 8.5 mg/dl (8.5-10.1); Carbon Dioxide 28 mmol/L (21-32); Chloride 109 mmol/L (98-107); Creatinine Clr Calc Pharmacy 66.5 ml/min; Est GFR (African American) 84.4 ml/min; Est GFR (Non-African American) 72.8 ml/min; Glucose 95 mg/dl (70-99); Potassium 3.5 mmol/L (3.5-5.1); Sodium 141 mmol/L (136-145)
[2021-02-16 04:34] LABS: Troponin I < 0.015 ng/ml (0-0.045)
[2021-02-16] MEDS: OMEGA-3 (PURIFIED FISH OIL) 1 GM CAP PO SCH (08:28)
[2021-02-16] MEDS: FAMOTIDINE 20 MG in SYRINGE 3 ML IV SCH (08:34)
[2021-02-16] MEDS ORDERED: CYANOCOBALAMIN (VITAMIN B-12) 100 MCG TABLET PO SCH (09:00)
[2021-02-16] MEDS ORDERED: ASPIRIN 81 MG ECTAB PO SCH (09:00)
[2021-02-16] MEDS ORDERED: LISINOPRIL/HCTZ 20/25MG 1 TAB PO SCH (09:00)
[2021-02-16] MEDS ORDERED: amLODIPine BESYLATE 5 MG TAB PO SCH (09:00)
[2021-02-16] MEDS ORDERED: CHOLECALCIFEROL 1,000 UNITS 25 MCG TAB PO SCH (09:00)
--- NOTE | 2021-02-16 10:02 | Discharge Summary ---
Date of Service February 16, 2021 Admission HPI Per Admitting Provider Ricardo is an 81-year-old male with a past medical history of chronic memory loss, hypertension, and GERD with hiatal hernia who presents for an episode of chest pain which resolved by the time of admission. , Seen at the bedside with his and daughter. They note that around 11:00 day of admission patient "did not feel good "and had a 2/10 achy pain in his epigastrium which did not spread to his upper chest or shoulder. He did not have any associated shortness of breath, sweating, dizziness, lightheadedness, dizziness. He is not sure how long the pain lasted, but noted it had completely resolved by the time he arrived in the ER. He noted he did have a heavy meal out last night which was unusual for him and his . 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 He has never had a heart attack or stroke, notes he did have a sibling with multiple bypass around age 60. He follows with the [facility] for routine care. He does not use tobacco products. He is seen at the bedside with his , his and his daughter endorse that he has had chronic worsening memory problems. Patient had been seen by Dr. 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 No acute change, but he has not been back for neurology follow-up in over a year He also has a history of hiatal hernia, has been on reflux medications last renewed the time which have not been taken recently. Had a salmon dinner out the night before symptoms, otherwise no recent change in diet and no recent GERD or reflux symptoms. No known episodes of esophageal spasm Medications: Reviewed, patient notes that patient has pill bottles arranged on a ledge but often has duplicate medications and his was very concerned that he may be taking multiple doses of certain medications by accident. This was discussed yesterday with the [facility] provider, they have just purchased a pillbox and are working on setting aside meds as Mr. Villa had previously managed his own medications daily. Medications updated in EMR. Medical history: As above Family history: Cardiac bypass in sibling as noted above Surgical history, contributory Social: Patient lives at home with his . Denies tobacco use. Approximately 3 beers per week alcohol use. Denies recreational drug use. Denies medical marijuana use DNR/DNI, medical decision-making forms were brought with them on admission Admission Exam Per Admitting Provider General: NAD. Cooperative.Patient is oriented to name and city only. Not oriented to day, month, year, or building. HEENT: Atraumatic, normocephalic. Pulm: CTAB A&P. -wheezes, -rales, -rhonchi. Symmetrical chest rise. No increase work of breathing. No respiratory distress. Cardiac: RRR, -mrg. Radial pulses intact and symmetrical. Abdominal: Nontender, nondistended, soft. BS present. CRANIAL NERVES: II: Pupils equal and reactive, no relative afferent pupillary defect, no VF cuts III, IV, : EOM intact, no gaze preference or deviation, no nystagmus. V: normal sensation in V1, V2, and V3 segments bilaterally VII: no asymmetry, no nasolabial fold flattening VIII: normal hearing to speech IX, X: normal palatal elevation, no uvular deviation XI: 5/5 head turn and 5/5 shoulder shrug bilaterally XII: midline tongue protrusion MOTOR: RUE: 5/5 Shoulder internal rotation, external rotation, flexion, extension, abduction, adduction 5/5 Elbow flexion/extension, wrist flexion/extension 5/5 family law specialist strength, finger flexion/extension, interosseus LUE: 5/5 Shoulder internal rotation, external rotation, flexion, extension, abduction, adduction 5/5 Elbow flexion/extension, wrist flexion/extension 5/5 family law specialist strength, finger flexion/extension, interosseus RLE: 5/5 to hip flexion/extension, knee flexion/extension, ankle dorsiflexion/plantarflexion LLE: 5/5 to hip flexion/extension, knee flexion/extension, ankle dorsiflexion/plantarflexion REFLEXES: 2/4 patellar, no clonus SENSORY: Normal to touch in upper and lower extremities without deficit or asymmetry Principal Diagnosis Chronic memory loss Noncardiac chest pain, suspect hiatal hernia Discharge Exam General: NAD. Cooperative. Patient is oriented to name and city only. Not oriented to day, month, or year HEENT: Atraumatic, normocephalic. Pulm: CTAB A&P. -wheezes, -rales, -rhonchi. Symmetrical chest rise. No increase work of breathing. No respiratory distress. Cardiac: RRR, -mrg. Radial pulses intact and symmetrical. Abdominal: Nontender, nondistended, soft. BS present. CRANIAL NERVES: II: Pupils equal and reactive, no relative afferent pupillary defect, no VF cuts III, IV, : EOM intact, no gaze preference or deviation, no nystagmus. V: normal sensation in V1, V2, and V3 segments bilaterally VII: no asymmetry, no nasolabial fold flattening VIII: normal hearing to speech IX, X: normal palatal elevation, no uvular deviation XI: 5/5 head turn and 5/5 shoulder shrug bilaterally XII: midline tongue protrusion MOTOR: RUE: 5/5 family law specialist strength, finger flexion/extension, interosseus LUE: 5/5 family law specialist strength, finger flexion/extension, interosseus SENSORY: Normal to touch in upper and lower extremities without deficit or asymmetry Discharge Data Allergies Allergy/AdvReac Type Severity Reaction Status Date / Time hydromorphone AdvReac Intermediate GI SYMPTOMS Verified 02/15/21 17:34 Consultations 02/15/21 17:24 ED Decision to Admit Stat Ordered Studies 02/15/21 14:24 CT head/brain wo con Stat Hospital Course (1) Chest pain: Ricardo is an 81-year-old male with a past medical history of chronic memory loss, hypertension, and GERD with hiatal hernia who presentsed for an episode of chest pain which resolved by the time of admission And chronic worsening memory deficits. His chest pain was likely noncardiac, he was at his baseline mentation but was noted to have chronic memory loss at discharge. To do as outpatient: Follow-up for chronic memory loss with outpatient PCP Case management to arrange some visit to case management social worker to help manage pillboxes and environmental interventions to help minimize the risk of accidental medication overdose Chest pain/epigastric pain, suspect noncardiac 2/2 hiatal hernia versus GERD Resolved by time of inpatient admission EKG with scattered nonspecific ST segment changes and right bundle branch block, no change compared to 2013 Troponin series x3 negative Differential includes hiatal hernia/esophageal spasm Treated with famotidine 20 mg twice daily, patient had no recurrence of symptoms during admission CXR with no acute findings Patient has excellent exercise tolerance, 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 No additional cardiac intervention indicated at this time (2) Memory loss: Memory loss Patient with chronic worsening memory loss for 3 years, worse in the last year. Daughter noted that he had memory testing with Dr. Vince Pringle at [facility] but patient did not have a good therapeutic relationship and did not attend follow-up. 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 He has not been seen for follow-up since and daughter were at the bedside at time of HPI, note that he is near his normal baseline mentation On physical exam he is oriented to name and city only, is not oriented to day, month, or year Suspect that he has chronic memory loss masked by a high degree of intelligence and ability to compensate Discussed pillboxes and additional help as needed at home during admission. Case management consulted to help provide a couple visits of home health services to help organize medications and social situation. Patient may have accidental polypharmacy/medication overdose as he was managing his own medications and noted he had several pill bottles lined up of the same medication. Case management intervention as above. CTH: No acute findings Recommend outpatient follow-up for chronic memory loss, patient may benefit [facility] home health services Vitamin B12 levels were the low end of normal, vitamin supplement added (3) Hypertension: Hypertension Continued amlodipine, lisinoprilhydrochlorothiazide, aspirin home doses Patient had adequate blood pressure control during admission DVT prophylaxis: Lovenox. No signs of DVT during admission. CODE STATUS: DNR/DNI, in addition has a signed advanced directive on file (4) History of tonsillectomy: (5) History of appendectomy: Total Time Total Time Spent Total Time Spent (In Minutes): See Attending Doc Discharge Plan Discharge Items Patient Disposition: Home - Home Health Services Reason For Visit: CHEST PAIN Discharge Diagnosis: Noncardiac chest pain Chronic memory loss Activity: Per Instructions section Non-emergency contact: Primary Care Provider Call non-emergency contact if: you have any medication questions Follow-up/Referrals: Terrence Paz CRNP [Primary Care Provider] - Diet: Regular Addtl Attending Provider Instructions: You were seen in the hospital for an episode of epigastric/chest pain which had resolved by the time of admission to the emergency department. Your EKG did not show any change in your heart rhythm, and your blood work did not show any signs of heart damage on repeat measurements. Your chest pain was most likely noncardiac in origin, and may have been related to your hiatal hernia or reflux. You were noted to have chronic memory loss without an acute change during admission. Your vitamin B12 levels were low, it is been recommended that you start a vitamin as below. You have not had other medication changes at this time. There was concern for potential mistakes of your medication due to some memory loss, it was strongly recommended that you use a pillbox to help organize your medications. Home health services to help organize your medications was discussed with you by case management. You have been started on a vitamin, vitamin B12 also called cholecalciferol. Take vitamin B12 100 mcg daily. Your other medications have not been changed and are as noted above. A followup appointment is being scheduled for you with your Primary Care provider Terrence Paz. You should be seen seen within 1 week. You should receive a call to confirm this appointment. If you do not receive a call within 48 hours to confirm this appointment, or need to change this appointment, please call the provider's office at . If you develop any new or worsening symptoms including fever, chills, sweats, chest pain, chest pressure, difficulty breathing, uncontrolled nausea/vomiting, rash, wheezing, passing out or nearly passing out, bleeding, black/bloody bowel movements, or other new or concerning symptoms please call your primary care physician at , or call 911 for re-evaluation in the emergency department if you are very concerned. Pending Studies at Discharge: No Stand-Alone Forms: My Stockpile, Smoking Cessation Medications and DC Order Prescriptions: New cyanocobalamin (vitamin B-12) [Vitamin B-12] 100 mcg Tablet 100 mcg PO QAM 30 Days Qty: 30 RF: 0 Continued terazosin 5 mg Capsule 5 mg PO HS RF: 0 omega-3 fatty acids [Fish Oil Concentrate] 1,000 mg Capsule 1,000 mg PO BID RF: 0 donepezil 10 mg Tablet 10 mg PO HS RF: 0 aspirin [Aspirin Low Dose] 81 mg Tablet,Delayed Release (Dr/Ec) 81 mg PO DAILY RF: 0 terazosin 2 mg Capsule 2 mg PO HS RF: 0 amlodipine 10 mg Tablet 10 mg PO DAILY RF: 0 lisinopril-hydrochlorothiazide 20-25 mg Tablet 1 tab PO DAILY RF: 0 cholecalciferol (vitamin D3) [Vitamin D3] 25 mcg (1,000 unit) Tablet 25 mcg PO DAILY RF: 0 Discharge Orders: Discharge Order (Routine); Ordered 02/16/21 Ordered By: Bowen Tai Admission Data Admit Date/Time: 02/15/21 18:42 Attending Provider: Irwin Silva Admit Provider: Bowen Tai Primary Care Provider: Terrence Paz Other Providers: Ashutosh Gaitan Other Interventions: Discharge Summary Assessment (RN) Last Done: 02/16/21 12:59 Supervising Physician Co-Signing Physician Notes Patient seen and examined with Dr. Tai. I agree with his exam findings, review of systems, assessment and plan. I have personally reviewed the lab work and imaging from today. patient no longer with chest / epigastric pain, feeling well, wants to go home Exam: WD WN male, no distress lungs CTA bilaterally, normal effort heart reg S1 S2 no murmurs abdomen soft, NT, ND, + BS no neurological deficits A/P: non cardiac chest pain, suspect GERD or hiatal hernia troponin neg x 3 sets, CXR normal, no ischemic changes on EKG, will discharge home memory loss: worsening over 3 years follow up with PCP Resident Activity Tracking Resident Involvement: Resident Care Provided Care Provided: Adult Hospital Medicine
--- NOTE | 2021-02-17 06:10 | Electrocardiogram Report ---
Test Reason : Blood Pressure : / mmHG Vent. Rate : 061 BPM Atrial Rate : 061 BPM P-R Int : 198 ms QRS Dur : 164 ms QT Int : 440 ms P-R-T Axes : 036 -09 042 degrees QTc Int : 442 ms Normal sinus rhythm Right bundle branch block Abnormal ECG When compared with ECG of 16-APR-2013 09:24, No significant change was found Confirmed by Michael Alicea ([id number]) on 02/17/2021 6:09:49 AM Referred By: Confirmed By:Michael Alicea
--- NOTE | 2021-02-18 00:54 | Billing Data ---
Date of Service February 16, 2021 Coding Level of Care Code 18599 OBS Care - Discharge
== END 2021-02-16 13:37 | disposition home health service (06) ==
LOC: 2N 13:11 → ED 13:11 → SUATTDRO 18:42 → 2N 21:07

== ENCOUNTER 2023-10-17 09:08 | Inpatient (IN) ==
--- NOTE | 2023-10-17 10:12 | Emergency Department Note ---
Impression & Plan Cecal volvulus, Abdominal pain, Nausea ED Provider Note NAME: ANA MARIA ALMODOVAR AGE: 83 SEX: M : 1940 ARRIVES VIA: Walk-In INFORMANT: Patient, ED PROVIDER(S): Dimitri Rosa DO CHIEF COMPLAINT: Abdominal pain HPI: The patient is an 83-year-old male who presented to the emergency department for an evaluation of abdominal pain. The patient describes upper abdominal pain which began over the course the last 24 hours. The patient denies having any fever or chills. He notices nausea and back pain but no vomiting. He denies having any diarrhea or rectal bleeding. The patient was not seen by his primary care physician for the symptoms. The patient is a history of appendectomy in the past. He denies having any chest pain. He had no shortness of breath. ROS: See above HPI for pertinent positives & negatives. A total of 10 systems reviewed and were otherwise negative. PAST MEDICAL HISTORY: See Below PAST SURGICAL HISTORY: See Below FAMILY HISTORY: See Below SOCIAL HISTORY: See Below HOME MEDICATIONS: See Below ALLERGIES: See Below VITALS: See Below PHYSICAL EXAMINATION: GENERAL: The patient is awake and alert. He is very anxious and appears to be uncomfortable. EYES: The conjunctivae are clear. The pupils are round and reactive. EARS, NOSE, MOUTH AND THROAT: The nose is without any evidence of any deformity. Mucous membranes are moist. Tongue is midline. NECK: The neck is nontender and supple. RESPIRATORY: Normal respiratory effort is noted there is no evidence of wheezing rhonchi or rales CARDIOVASCULAR: Regular rate and rhythm noted there no murmurs rubs or gallops normal S1 normal S2. GASTROINTESTINAL: The abdomen is soft and nondistended. There is specific tenderness in the upper abdomen. There is guarding in the upper abdomen. MUSCULOSKELETAL/EXTREMITIES: There is no evidence of gross deformity full range of motion is noted in the hips and shoulders. SKIN: There is no obvious evidence of any rash. There are no petechiae, pallor or cyanosis noted. NEUROLOGIC: Patient is awake alert and oriented x3 MEDICAL DECISION MAKING: The patient is an 83-year-old male who presented to the emergency department for an evaluation of abdominal pain. The patient's history and physical exam appear to be consistent with a surgical abdomen. 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 I discussed the patient's laboratory and radiographic studies with him. He was treated with IV fluids IV pain medication and IV antiemetics. He was also given IV antibiotics. I discussed his condition with the on-call general surgeon. They have agreed to evaluate the patient in the emergency department. Ultimately he was felt to be a good candidate for surgical intervention given his findings on CT. I discussed patient's condition with the on-call [facility] hospitalist. They will evaluate the patient after he comes out of the OR. Triage Nursing notes reviewed. Prior medical records reviewed Vital Signs: reviewed and remarkable for no significant abnormalities Differential diagnosis: Etiologies such as appendicitis, diverticulitis, obstruction, inflammatory bowel disease, renal colic, PUD, biliary pathology, pancreatitis, mesenteric ischemia, aortic pathology, infections, genitourinary, UTI, perforated viscus, as well as others were entertained. ER treatment provided: See below Diagnostics interpreted by me: ECG: EKG was obtained in the emergency department. My interpretation is sinus rhythm at 49 bpm with first-degree AV block noted. Right bundle branch block pattern was noted. This was compared to a tracing from March 08, 2022. No changes were noted. Cardiac Monitoring: An order was placed for continuous cardiac monitoring. The monitor shows a rate of 60 bpm with sinus rhythm Laboratory studies: As stated above and show below. Imaging studies: See below. Radiographic imaging was reviewed by myself Consultation(s): I discussed this case with Diana who is on for general surgery. They will evaluate the patient in the emergency department. I discussed this case with Dr. Nation who is on-call for the [facility]. 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 Beliefs That Will Affect Care: None Current Living Situation: Spouse Feels Safe at Home: Yes Assistive Devices: Glasses Allergies Allergies Allergy/AdvReac Type Severity Reaction Status Date / Time hydromorphone AdvReac Intermediate GI SYMPTOMS Verified 10/17/23 11:48 Home Meds Home Medications Medication Instructions Recorded Confirmed amlodipine 10 mg tablet 10 mg PO DAILY 02/15/21 10/17/23 aspirin 81 mg tablet,delayed 0 mg PO DAILY 02/15/21 10/17/23 release (Erin Low Dose Aspirin) cholecalciferol (vitamin D3) 25 0 mcg PO DAILY 02/15/21 10/17/23 mcg (1,000 unit) tablet (Vitamin D3) lisinopril 20 1 tab PO DAILY 02/15/21 10/17/23 mg-hydrochlorothiazide 25 mg tablet donepezil 10 mg tablet 10 mg PO HS 10/17/23 10/17/23 food supplemt, lactose-reduced 1 ea PO DAILY 10/17/23 10/17/23 (Ensure oral liquid) terazosin 10 mg capsule 10 mg PO HS 10/17/23 10/17/23 Results & Data (ED) Vital Signs Vital Signs - 24 hr 10/17/23 09:21 10/17/23 10:09 10/17/23 10:41 Temperature 36.8 C Temperature Source Temporal Artery Scan Pulse Rate 124 H 51 L Pulse Rate [Apical] Pulse Rate from SpO2 Sensor 52 L Respiratory Rate 18 10 L Respiratory Effort / Characteristics Non-Labored Spontaneous Respiratory Depth Normal Respiratory Pattern Blood Pressure 123/62 Blood Pressure [Left Arm] Blood Pressure Mean 82 Blood Pressure Mean [Left Arm] Blood Pressure Position Sitting Blood Pressure Position [Left Arm] Pulse Oximetry 91 99 Oxygen Delivery Method Room Air Room Air Sepsis Recent Fever Within 48 Hours No Sepsis New/Unexplained Change in Mental Status No Sepsis Action Taken by Nursing No Action Required 10/17/23 11:00 10/17/23 12:30 10/17/23 12:42 Temperature Temperature Source Pulse Rate 54 L 56 L 57 L Pulse Rate [Apical] Pulse Rate from SpO2 Sensor 53 L 57 L Respiratory Rate 17 20 Respiratory Effort / Characteristics Respiratory Depth Respiratory Pattern Blood Pressure 117/52 L 121/66 Blood Pressure [Left Arm] Blood Pressure Mean 73 84 Blood Pressure Mean [Left Arm] Blood Pressure Position Blood Pressure Position [Left Arm] Pulse Oximetry 96 94 Oxygen Delivery Method Room Air Room Air Sepsis Recent Fever Within 48 Hours Sepsis New/Unexplained Change in Mental Status Sepsis Action Taken by Nursing 10/17/23 13:11 Temperature 36.4 C L Temperature Source Oral Pulse Rate Pulse Rate [Apical] 60 Pulse Rate from SpO2 Sensor Respiratory Rate 14 Respiratory Effort / Characteristics Non-Labored Spontaneous Respiratory Depth Normal Respiratory Pattern Regular Blood Pressure Blood Pressure [Left Arm] 125/62 Blood Pressure Mean Blood Pressure Mean [Left Arm] 83 Blood Pressure Position Blood Pressure Position [Left Arm] Semi-fowlers Pulse Oximetry 96 Oxygen Delivery Method Room Air Sepsis Recent Fever Within 48 Hours Sepsis New/Unexplained Change in Mental Status Sepsis Action Taken by [facility] Medications Current Medication List: was personally reviewed by me Laboratory Data Attestation: I reviewed the patient's lab results. 10/17/23 10:07 10/17/23 10:07 Lab Results 10/17/23 10/17/23 Range/Units 10:07 10:15 WBC 8.75 (4.8-10.8) K/ul RBC 4.11 L (4.70-6.10) M/uL Hgb 13.6 L (14.0-18.0) g/dl POC Hgb 12.6 L (14.0-18.0) g/dl Hct 38.6 L (42.0-52.0) % POC Hct 37 L (42-52) % MCV 93.9 (80.0-100.0) fL MCH 33.1 (25.0-34.0) pg MCHC 35.2 (32.0-36.0) g/dL RDW Std Deviation 43.1 (36.4-46.3) fL RDW Coeff of Jonel 12.5 (11.5-14.5) % Plt Count 227 (130-400) K/uL MPV 10.4 (9.4-12.4) fL Immature Gran % (Auto) 0.5 % Neut % (Auto) 75.8 % Lymph % (Auto) 14.6 % [place] % (Auto) 7.9 % Eos % (Auto) 1.1 % Baso % (Auto) 0.1 % Neut # (Auto) 6.63 H (1.40-6.50) K/uL Lymph # (Auto) 1.28 (1.20-3.40) K/uL [place] # (Auto) 0.69 H (0.11-0.59) K/uL Eos # (Auto) 0.10 (0.00-0.50) K/uL Baso # (Auto) 0.01 (0.00-0.20) K/uL Immature Gran # (Auto) 0.04 (0.01-0.20) K/uL POC Sodium 137 (135-144) mmol/L Sodium 137 (136-145) mmol/L POC Potassium 3.4 (3.3-5.0) mmol/L Potassium 3.6 (3.5-5.1) mmol/L POC Chloride 99 L (101-112) mmol/L Chloride 102 (98-107) mmol/L Carbon Dioxide 26 (21-32) mmol/L POC Total CO2 27 (24-31) mmol/L Anion Gap 9 (3-11) POC Anion Gap 16.0 (16-25) mmol/L POC BUN 18 (7-18) mg/dl BUN 19 (6-23) mg/dl Creatinine 1.11 (0.6-1.4) mg/dl POC Creatinine 1.2 (0.6-1.3) mg/dl Est Cr Clr Drug Dosing Not Reportable Est GFR ( Amer) 69.8 ml/min Est GFR (Non-Af Amer) 60.2 ml/min BUN/Creatinine Ratio 17.1 (10-20) Glucose 105 H (70-99(Fasting)) mg/dl POC Glucose (other) 103 H (70-99) mg/dl Calcium 10.0 (8.6-10.3) mg/dl POC Ioniz Calcium Fausto 1.24 (1.12-1.32) mmol/l Total Bilirubin 1.4 H (0.2-1.0) mg/dl AST 15 (13-39) U/L ALT 9 (7-52) U/L Alkaline Phosphatase 45 (34-104) U/L Troponin I High Sens 3.2 (0-20) pg/ml Total Protein 6.5 (6.0-8.3) gm/dl Albumin 4.4 (3.4-5.0) gm/dl Globulin 2.1 L (2.5-4.0) gm/dl Albumin/Globulin Ratio 2.1 H (0.9-2) Lipase 26 (11-82) U/L Administered Medications Morphine Sulfate (Morphine Sulfate 4 Mg/Ml 1 Ml Carp\Vial) 4 mg IV Q15M PRN PRN Reason: Pain Stop: 10/31/23 10:08 Last Admin: 10/17/23 10:38 Dose: 4 mg Documented By: BERNABE Discontinued Medications Sodium Chloride (Nss) 500 mls @ 999 mls/hr IV .Q31M STA Stop: 10/17/23 10:39 Last Infusion: 10/17/23 11:13 Dose: Infused Documented By: Admin: 10/17/23 10:42 Dose: 999 mls/hr Documented By: Sodium Chloride (Nss) 1,000 mls @ 999 mls/hr IV .Q1H1M ONE Stop: 10/17/23 13:23 Last Admin: 10/17/23 12:49 Dose: 999 mls/hr Documented By: BERNABE Piperacillin Sod/Tazobactam Sod (Zosyn) 4.5 gm in 100 mls @ 200 mls/hr IV NOW ONE Stop: 10/17/23 12:52 Last Infusion: 10/17/23 13:37 Dose: Infused Documented By: Admin: 10/17/23 12:47 Dose: 200 mls/hr Documented By: BERNABE Ioversol (Optiray 320 500ml) 94 ml IV ONCE ONE Stop: 10/17/23 11:14 Last Admin: 10/17/23 11:13 Dose: 94 ml Documented By: ADAM Ondansetron HCl (Ondansetron Inj 2 Mg/Ml 2 Ml Vial) 4 mg IV NOW STA Stop: 10/17/23 09:27 Last Admin: 10/17/23 10:40 Dose: 4 mg Documented By: BERNABE Imaging Data Attestation: I personally reviewed and interpreted this imaging study as follows: My Impression: CT of the abdomen and pelvis was obtained in the emergency department. My interpretation is dilated loops of small bowel. Concerning for bowel obstruction, final report below Radiologist's Impression: Abdomen/Pelvis CT 10/17/23 10:[address] WITH IV CONTRAST CT DOSE: 893.41 mGy.cm HISTORY: Acute severe abdominal pain. severe ain TECHNIQUE: Multiaxial CT images of the abdomen and pelvis were performed following the IV administration of 94 cc of Optiray, A dose lowering technique was utilized adhering to the principles of ALARA. COMPARISON STUDY: 10/24/2016. FINDINGS: Mild cardiomegaly with extensive coronary artery calcifications. Trace pleural effusions with mild bibasilar densities suggestive of atelectasis versus scarring. No free air identified. Unremarkable spleen, pancreas and adrenal glands. The gallbladder appears surgically absent. Intrahepatic and extrahepatic biliary ductal dilation redemonstrated with the common bile duct measuring up to 9 mm. Scattered hepatic cysts measure up to 1.9 cm. Atrophy of the left hepatic lobe. The portal vein appears patent. Subcentimeter probable cyst of the inferior pole left kidney. Left renal cysts measure up to 5.1 cm. No hydronephrosis. Nonspecific urinary bladder wall thickening with distended urinary bladder. Prostatomegaly. Extensive atherosclerosis of the aorta and branch vessels. Unremarkable IVC. No lymphadenopathy identified. Partial distention of the rectum with nonspecific wall thickening. Small volume of abdominopelvic ascites. 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 Upstream ileum is fluid-filled and dilated measuring up to 3.5 cm with high-grade obstruction. Lymph nodes of the right lower quadrant mesentery measure up to 10 mm. Colonic diverticulosis. No acute fracture. Degenerative changes of the spine, pelvis and hips. IMPRESSION: 1. 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 There is also dilation of the distal ileum with interloop edema and small volume of abdominal pelvic ascites. 2. Nonspecific borderline enlarged lymph nodes of the right lower quadrant mesentery. 3. No pneumoperitoneum. 4. Prostatomegaly with evidence of chronic outlet obstruction. 5. Cholecystectomy with biliary ductal dilation which may be postsurgical. This could be correlated with laboratory analysis. ACT 112: Negative or not required by law. The above report was generated using voice recognition software. It may contain grammatical, syntax or spelling errors. Dictated: 10/17/2023 11:30 AM Transcribed: 10/17/2023 12:07 PM Jose Guadalupe [id number] MARC_Luis Angel [id number] Electronically signed by: Jet Worthington M.D. 10/17/2023 12:11 PM Discharge Plan Visit Data Chief Complaint: Abdominal Pain Stated Complaint: ABD PAIN ED Provider: Dimitri Rosa Discharge Problem: Cecal volvulus, Abdominal pain, Nausea Patient Disposition: Admitted As Inpatient Discharge Instructions Interventions: ED Discharge Assessment Last Done: 10/17/23 13:02 Forms Stand Alone Forms: My [facility]Current Prescriptions Prescriptions: No Action aspirin [Erin Low Dose Aspirin] 81 mg Tablet,Delayed Release (Dr/Ec) 0 mg PO DAILY Rx Instructions: Unable to verify OTC meds with patient/family at this date/time. amlodipine 10 mg Tablet 10 mg PO DAILY lisinopril-hydrochlorothiazide 20-25 mg Tablet 1 tab PO DAILY cholecalciferol (vitamin D3) [Vitamin D3] 25 mcg (1,000 unit) Tablet 0 mcg PO DAILY Rx Instructions: Unable to verify OTC meds with patient/family at this date/time. donepezil 10 mg Tablet 10 mg PO HS terazosin 10 mg Capsule 10 mg PO HS Ensure Liquid 1 ea PO DAILY Referrals Referrals: [facility] [Primary Care Provider] - Discharge Problem: Abdominal pain Qualifiers: Abdominal location: right upper quadrant Qualified Code(s): R10.11 - Right upper quadrant pain
[2023-10-17 10:27] LABS: iSTAT Creatinine 1.2 mg/dl (0.6-1.3); iSTAT Hemoglobin 12.6 g/dl (14.0-18.0); iSTAT Ionized Calcium 1.24 mmol/l (1.12-1.32); iSTAT Potassium 3.4 mmol/L (3.3-5.0)
[2023-10-17 10:36] LABS: Basophils # (auto) 0.01 K/uL (0.00-0.20); Basophils % (auto) 0.1 %; Eosinophils % (auto) 1.1 %; Hematocrit (blood only) 38.6 % (42.0-52.0); Hemoglobin 13.6 g/dl (14.0-18.0); Immature Granulocytes # (auto) 0.04 K/uL (0.01-0.20); Immature Granulocytes % (auto) 0.5 %; Lymphocytes # (auto) 1.28 K/uL (1.20-3.40); Lymphocytes % (auto) 14.6 %; Mean Corpuscular Hemoglobin 33.1 pg (25.0-34.0); Mean Corpuscular Hgb Conc 35.2 g/dL (32.0-36.0); Mean Corpuscular Volume 93.9 fL (80.0-100.0); Mean Platelet Volume 10.4 fL (9.4-12.4); Monocytes # (auto) 0.69 K/uL (0.11-0.59); Monocytes % (auto) 7.9 %; Neutrophils # (auto) 6.63 K/uL (1.40-6.50); Neutrophils % (auto) 75.8 %; Platelet Count 227 K/uL (130-400); RDW Coefficient of Variation 12.5 % (11.5-14.5); RDW Standard Deviation 43.1 fL (36.4-46.3); Red Blood Count 4.11 M/uL (4.70-6.10); White Blood Count 8.75 K/ul (4.8-10.8)
[2023-10-17] MEDS: MoRPHine SULFATE 4 MG/ML 1 ML CARP\\VIAL IV PRN (10:38)
[2023-10-17] MEDS: ONDANSETRON INJ 2 MG/ML 2 ML VIAL IV STA (10:40)
[2023-10-17] MEDS: SODIUM CHLORIDE 0.9% 500 ML IV STA (10:42)
[2023-10-17 10:50] LABS: Alanine Aminotransferase 9 U/L (7-52); Albumin Globulin Ratio 2.1 (0.9-2); Albumin Level 4.4 gm/dl (3.4-5.0); Alkaline Phosphatase 45 U/L (34-104); Anion Gap 9 (3-11); Aspartate Aminotransferase 15 U/L (13-39); BUN Creatinine Ratio 17.1 (10-20); Bilirubin,Total 1.4 mg/dl (0.2-1.0); Blood Urea Nitrogen 19 mg/dl (6-23); Carbon Dioxide 26 mmol/L (21-32); Chloride 102 mmol/L (98-107); Est GFR (African American) 69.8 ml/min; Est GFR (Non-African American) 60.2 ml/min; Globulin 2.1 gm/dl (2.5-4.0); Glucose 105 mg/dl (70-99(Fasting)); Lipase 26 U/L (11-82); Potassium 3.6 mmol/L (3.5-5.1); Sodium 137 mmol/L (136-145); Total Protein 6.5 gm/dl (6.0-8.3)
[2023-10-17 10:55] LABS: Troponin I High Sensitivity 3.2 pg/ml (0-20)
[2023-10-17] MEDS: OPTIRAY 320 500ml IV ONE (11:13)
--- NOTE | 2023-10-17 12:12 | CT Scan Report ---
ABDOMEN AND PELVIS CT WITH IV CONTRAST CT DOSE: 893.41 mGy.cm HISTORY: Acute severe abdominal pain. severe ain TECHNIQUE: Multiaxial CT images of the abdomen and pelvis were performed following the IV administrat ion of 94 cc of Optiray, A dose lowering technique was utilized adhering to the principles of ALARA. COMPARISON STUDY: 10/24/2016. FINDINGS: Mild cardiomegaly with extensive coronary artery calcifications. Trace pleural effusions wi th mild bibasilar densities suggestive of atelectasis versus scarring. No free air identified. Unremarkable spleen, pancreas and adrenal glands. The gallbladder appears surgically absent. Intrahep atic and extrahepatic biliary ductal dilation redemonstrated with the common bile duct measuring up t o 9 mm. Scattered hepatic cysts measure up to 1.9 cm. Atrophy of the left hepatic lobe. The portal ve in appears patent. Subcentimeter probable cyst of the inferior pole left kidney. Left renal cysts measure up to 5.1 cm. No hydronephrosis. Nonspecific urinary bladder wall thickening with distended urinary bladder. Prosta tomegaly. Extensive atherosclerosis of the aorta and branch vessels. Unremarkable IVC. No lymphadenop athy identified. Partial distention of the rectum with nonspecific wall thickening. Small volume of abdominopelvic asc ites. 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 Upstream ileum is fluid-filled and dilated measuring up to 3.5 cm with high-grade obstruction. Lymph nodes of the right lower quadrant mesentery measure up to 10 mm. Colonic diverticulosis. No acute fracture. Degenerative changes of the spine, pelvis and hips. IMPRESSION: 1. 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 There is also dilation of the distal ileum with interloop edema and small volume of abdominal pelvic ascites. 2. Nonspecific borderline enlarged lymph nodes of the right lower quadrant mesentery. 3. No pneumoperitoneum. 4. Prostatomegaly with evidence of chronic outlet obstruction. 5. Cholecystectomy with biliary ductal dilation which may be postsurgical. This could be correlated w ith laboratory analysis. ACT 112: Negative or not required by law. The above report was generated using voice recognition software. It may contain grammatical, syntax o r spelling errors. Dictated: 10/17/2023 11:30 AM Transcribed: 10/17/2023 12:07 PM Jose Guadalupe [id number] MARC_Luis Angel [id number] Electronically signed by: Jet Worthington M.D. 10/17/2023 12:11 PM
[2023-10-17] MEDS: PIPERACILLIN/TAZOBACTAM 4.5 GM/100 ML BAG IV ONE (12:47)
[2023-10-17] MEDS: SODIUM CHLORIDE 0.9% 1,000 ML IV ONE (12:49)
--- NOTE | 2023-10-17 12:58 | Anesthesiology Consultation ---
Date of Service October 17, 2023 Assessment & Plan Chart Review Chart Review: entry writer initiated History Surgery Operation Date: 10/17/23 10:20 Proposed Procedures p Exploratory Laparotomy, Possible Bowel Resection, Possible Colostomy - Zenon Laird DO, FACS Height/Weight Height: 6 ft 2 in Allergies Allergy/AdvReac Type Severity Reaction Status Date / Time hydromorphone AdvReac Intermediate GI SYMPTOMS Verified 10/17/23 11:48 Medications Home Medications Medication Instructions Recorded Confirmed Last Taken amlodipine 10 mg tablet 10 mg PO DAILY 02/15/21 10/17/23 09/16/23 aspirin 81 mg tablet,delayed 0 mg PO DAILY 02/15/21 10/17/23 09/16/23 release (Erin Low Dose Aspirin) cholecalciferol (vitamin D3) 25 0 mcg PO DAILY 02/15/21 10/17/23 09/16/23 mcg (1,000 unit) tablet (Vitamin D3) lisinopril 20 1 tab PO DAILY 02/15/21 10/17/23 09/16/23 mg-hydrochlorothiazide 25 mg tablet donepezil 10 mg tablet 10 mg PO HS 10/17/23 10/17/23 Unknown food supplemt, lactose-reduced 1 ea PO DAILY 10/17/23 10/17/23 Unknown (Ensure oral liquid) terazosin 10 mg capsule 10 mg PO HS 10/17/23 10/17/23 Unknown Active Medications Generic Name Dose Route Start Last Admin Trade Name Freq PRN Reason Stop Dose Admin Sodium Chloride 1,000 mls @ 999 mls/hr 10/17/23 12:23 10/17/23 12:49 Nss IV 10/17/23 13:23 999 mls/hr .Q1H1M ONE Administration Piperacillin Sod/Tazobactam Sod 4.5 gm in 100 mls @ 200 mls/hr 10/17/23 12:23 10/17/23 12:47 Zosyn IV 10/17/23 12:52 200 mls/hr NOW ONE Administration Morphine Sulfate 4 mg 10/17/23 10:09 10/17/23 10:38 Morphine Sulfate 4 Mg/Ml 1 Ml Carp\Vial IV 10/31/23 10:08 4 mg Q15M PRN Administration Pain Past Medical History Medical History Acute confusion Hiatal hernia Chest pain Colitis Hypertension Past Surgical History Surgical History History of appendectomy History of tonsillectomy Social History Smoking Status: Never smoker Hx Alcohol Use: Yes Alcohol type: hard liquor alcohol intake frequency: 3 or more drinks per day Hx Substance Use: No Physical Exam Vital Signs Last Vital Signs Temp 98.2 F 10/17/23 09:21 Pulse 57 L 10/17/23 12:42 Resp 20 10/17/23 12:30 BP 121/66 10/17/23 12:30 Pulse Ox 94 10/17/23 12:30 O2 Del Method Room Air 10/17/23 12:30 Testing Laboratory Results 10/17/23 10:07 10/17/23 10:07 10/17/23 10:15 POC Glucose (other) 103 H Electrocardiogram Date: 10/17/23 Sinus bradycardia with 1st degree A-V block, rate 49 bpm Right bundle branch block Abnormal ECG When compared with ECG of 08-MAR-2022 09:28, No significant change was found Chest X-Ray Date: 09/17/23 Findings: + NAD
[2023-10-17] MEDS ORDERED: ATROPINE SULFATE 0.1 MG/ML 10ML SYR IV PRN (12:59)
[2023-10-17] MEDS ORDERED: ONDANSETRON INJ 2 MG/ML 2 ML VIAL IV PRN ×2 (12:59→18:27)
[2023-10-17] MEDS ORDERED: ePHEDrine sulfate 50 MG/ML AMP IV PRN (12:59)
[2023-10-17] MEDS ORDERED: LIDOCAINE 2% 2 ML VIAL/AMP(20MG/ML) INFIL ONE (13:08)
[2023-10-17] MEDS ORDERED: PROPOFOL IV EMULSION 10 MG/ML 20 ML VIAL IV ONE (13:08)
[2023-10-17] MEDS ORDERED: ONDANSETRON INJ 2 MG/ML 2 ML VIAL ONE (13:08)
[2023-10-17] MEDS ORDERED: DEXAMETHASONE SOD INJ 4 MG/ML VIAL ONE (13:08)
[2023-10-17] MEDS ORDERED: fentaNYL citrate PF 100 MCG/2 ML VIAL ONE ×2 (13:08→14:53)
[2023-10-17] MEDS ORDERED: ROCURONIUM BROMIDE 10 MG/ML 5 ML VIAL IV ONE ×2 (13:08→14:53)
[2023-10-17] MEDS ORDERED: PHENYLEPHRINE HCL 10 MG/ML VIAL ONE (13:11)
--- NOTE | 2023-10-17 13:27 | History & Physical Report ---
Date of Service October 17, 2023 History of Present Illness Chief Complaint: Abdominal pain Primary Care Provider: [facility] Patient is a pleasant 83 yo male with PMH of HTN, confusion, hiatal hernia , chest pain, colitis, that presented to the [facility] ER today with c/o abdominal pain that has been on-going for the last few weeks. The pain became worse today which is what prompted him to seek care. He reports pain is currently a 2/10 in upper abdomen, denies nausea, vomiting, diarrhea change in bowel habits. Thinks his last BM was yesterday. He is accompanied with his . Past surgical history includes open appendectomy and tonsillectomy. He denies blood thinners. Has been NPO since last night. While in the ER he underwent an abdominal Ct scan showing IMPRESSION: 1. 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 There is also dilation of the distal ileum with interloop edema and small volume of abdominal pelvic ascites. 2. Nonspecific borderline enlarged lymph nodes of the right lower quadrant mesentery. 3. No pneumoperitoneum. 4. Prostatomegaly with evidence of chronic outlet obstruction. 5. Cholecystectomy with biliary ductal dilation which may be postsurgical. This could be correlated with laboratory analysis. WBC are not elevated at 8.7 On exam he appears in no acute distress, his abdomen is distended and TTP in epigastric area, +BS, lungs CTA bilaterally. He is scheduled for a Exploratory Laparotomy, Possible Bowel Resection, Possible Colostomy with Surgeon: Zenon Laird Allergies Allergy/AdvReac Type Severity Reaction Status Date / Time hydromorphone AdvReac Intermediate GI SYMPTOMS Verified 10/17/23 11:48 Home Medications Medication Instructions Recorded Confirmed Type amlodipine 10 mg tablet 10 mg PO DAILY 02/15/21 10/17/23 History aspirin 81 mg tablet,delayed 0 mg PO DAILY 02/15/21 10/17/23 History release (Erin Low Dose Aspirin) cholecalciferol (vitamin D3) 25 0 mcg PO DAILY 02/15/21 10/17/23 History mcg (1,000 unit) tablet (Vitamin D3) lisinopril 20 1 tab PO DAILY 02/15/21 10/17/23 History mg-hydrochlorothiazide 25 mg tablet donepezil 10 mg tablet 10 mg PO HS 10/17/23 10/17/23 History food supplemt, lactose-reduced 1 ea PO DAILY 10/17/23 10/17/23 History (Ensure oral liquid) terazosin 10 mg capsule 10 mg PO HS 10/17/23 10/17/23 History Past Med/Surg History Medical History Acute confusion Hiatal hernia Chest pain Colitis Hypertension Surgical History History of appendectomy History of tonsillectomy Social History Smoking Status: Never smoker Tobacco Type: Cigarettes Hx Alcohol Use: Yes Alcohol type: hard liquor Hx Substance Use: No Preferred Language: Spanish Communication Ability: Impaired Community Case Manager Required: No Beliefs That Will Affect Care: None Current Living Situation: Spouse Feels Safe at Home: Yes Assistive Devices: Glasses Review of Systems Constitutional: no fever and no chills Eyes: no problem reported Ear, Nose, Mouth, Throat: no hearing loss Respiratory: no dyspnea Cardiovascular: no chest pain Gastrointestinal: + abdominal pain; no nausea, no vomiting and no change in bowel habits Genitourinary: no dysuria Musculoskeletal: no muscle weakness Integumentary: no rash Neurologic: + memory loss Physical Exam Physical Exam: alert oriented, pleasant Constitutional: cooperative and comfortable; no acute distress ENMT: external ear and nose normal, oropharynx normal Neck: trachea midline, no thyromegaly Respiratory: normal respiratory effort, lungs clear to auscultation Cardiovascular: RRR, no murmur, no edema Gastrointestinal (Abdomen): Inspection/Auscultation: + abdomen distended, normal bowel sounds and + abdominal surgical scar Percussion/Palpation: + abdomen tender and + abdomen firm Musculoskeletal: no cyanosis or clubbing, extremities motor strength 5/5 Skin: no rashes, warm and dry Psychiatric: A+Ox3, euthymic affect Results & Data Results & Data Vital Signs (Past 12 Hours) Vital Signs Temp Pulse Pulse Resp BP BP Pulse Ox 10/17/23 13:11 60 14 125/62 96 10/17/23 12:42 57 L 10/17/23 12:30 56 L 20 121/66 94 10/17/23 11:00 54 L 17 117/52 L 96 10/17/23 10:41 51 L 10 L 99 10/17/23 10:09 10/17/23 09:21 98.2 F 124 H 18 123/62 91 O2 Del Method 10/17/23 13:11 Room Air 10/17/23 12:42 10/17/23 12:30 Room Air 10/17/23 11:00 Room Air 10/17/23 10:41 10/17/23 10:09 Room Air 10/17/23 09:21 Room Air Diagnostic Findings [facility] [place] [phone] CT Scan Report Patient: ANA MARIA ALMODOVAR Admit Date: 10/17/23 MR#: [id number] Address1: [address] [facility] Acct ID:[id number] Address2: Date: 1940 [facility] Zip: [place] [address] Age: 83 Location: ED Sex: M Room/Bed: Att Phy: Diagnosis: ABD PAIN Arabella Phy: [facility], Hospital Service Date: 10/17/23 Fam Phy: Interpreting Phy: Jet WorthingtonAdmit Phy: Ordering Phy: Dimitri Rosa DO cc: ~ ABDOMEN AND PELVIS CT WITH IV CONTRAST CT DOSE: 893.41 mGy.cm HISTORY: Acute severe abdominal pain. severe ain TECHNIQUE: Multiaxial CT images of the abdomen and pelvis were performed following the IV administration of 94 cc of Optiray, A dose lowering technique was utilized adhering to the principles of ALARA. COMPARISON STUDY: 10/24/2016. FINDINGS: Mild cardiomegaly with extensive coronary artery calcifications. Trace pleural effusions with mild bibasilar densities suggestive of atelectasis versus scarring. No free air identified. Unremarkable spleen, pancreas and adrenal glands. The gallbladder appears surgically absent. Intrahepatic and extrahepatic biliary ductal dilation redemonstrated with the common bile duct measuring up to 9 mm. Scattered hepatic cysts measure up to 1.9 cm. Atrophy of the left hepatic lobe. The portal vein appears patent. Subcentimeter probable cyst of the inferior pole left kidney. Left renal cysts measure up to 5.1 cm. No hydronephrosis. Nonspecific urinary bladder wall thickening with distended urinary bladder. Prostatomegaly. Extensive atherosclerosis of the aorta and branch vessels. Unremarkable IVC. No lymphadenopathy identified. Partial distention of the rectum with nonspecific wall thickening. Small volume of abdominopelvic ascites. 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 Upstream ileum is fluid-filled and dilated measuring up to 3.5 cm with high-grade obstruction. Lymph nodes of the right lower quadrant mesentery measure up to 10 mm. Colonic diverticulosis. No acute fracture. Degenerative changes of the spine, pelvis and hips. IMPRESSION: 1. 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 There is also dilation of the distal ileum with interloop edema and small volume of abdominal pelvic ascites. 2. Nonspecific borderline enlarged lymph nodes of the right lower quadrant me sentery. 3. No pneumoperitoneum. 4. Prostatomegaly with evidence of chronic outlet obstruction. 5. Cholecystectomy with biliary ductal dilation which may be postsurgical. This could be correlated with laboratory analysis. ACT 112: Negative or not required by law. The above report was generated using voice recognition software. It may contain grammatical, syntax or spelling errors. Dictated: 10/17/2023 11:30 AM Transcribed: 10/17/2023 12:07 PM Jose Guadalupe [id number] MARC_Luis Angel [id number] Electronically signed by: Jet Worthington M.D. 10/17/2023 12:11 PM Dictated: 10/17/23 1130 Transcribed: 10/17/23 1207 CBC Results Results Complete Blood Count Results: RBC 4.11 M/uL (4.70-6.10) L 10/17/23 WBC 8.75 K/ul (4.8-10.8) 10/17/23 Hgb 13.6 g/dl (14.0-18.0) L 10/17/23 Hct 38.6 % (42.0-52.0) L 10/17/23 Plt Count 227 K/uL (130-400) 10/17/23 Supervising Physician Co-Signing Physician Notes Patient seen and examined, labs and imaging reviewed, agree with above. 83-year-old male that is somewhat of a poor historian presented to the emergency department for abdominal pain. He has been having intermittent lower abdominal cramping for several weeks, this morning it appeared to be worse so he asked to come to the emergency department. He denies prior colonoscopy. On exam afebrile with stable vitals. Abdomen soft, mildly tender to palpation in the right lower quadrant. Right lower quadrant scar. WBC normal. CT personally viewed and interpreted agree with the assessment of a cecal volvulus resulting obstruction and edema. Cecal volvulus Plan for exploratory laparotomy, possible bowel resection, possible ostomy Risk of the procedure were discussed to include but not limited to bleeding, infection, leak, abscess, need for future more extensive surgery, damage to surrounding structures, hernia, prolonged hospital stay, and the risk of anesthesia PG Care Time/CCT Total # of Minutes Spent Total Time Spent with Patient: Total time spent is greater than 50% in coordination of care (as documented) at patient's floor/unit and/or counseling patient: Coding Level of Care Code 70197 INT INP/OBS CARE 3/75MIN
--- NOTE | 2023-10-17 13:54 | History & Physical Report ---
Date of Service October 17, 2023 History of Present Illness Chief Complaint: abdominal pain Primary Care Provider: [facility] Allergies Allergy/AdvReac Type Severity Reaction Status Date / Time hydromorphone AdvReac Intermediate GI SYMPTOMS Verified 10/17/23 11:48 Home Medications Medication Instructions Recorded Confirmed Type amlodipine 10 mg tablet 10 mg PO DAILY 02/15/21 10/17/23 History aspirin 81 mg tablet,delayed 0 mg PO DAILY 02/15/21 10/17/23 History release (Erin Low Dose Aspirin) cholecalciferol (vitamin D3) 25 0 mcg PO DAILY 02/15/21 10/17/23 History mcg (1,000 unit) tablet (Vitamin D3) lisinopril 20 1 tab PO DAILY 02/15/21 10/17/23 History mg-hydrochlorothiazide 25 mg tablet donepezil 10 mg tablet 10 mg PO HS 10/17/23 10/17/23 History food supplemt, lactose-reduced 1 ea PO DAILY 10/17/23 10/17/23 History (Ensure oral liquid) terazosin 10 mg capsule 10 mg PO HS 10/17/23 10/17/23 History Past Med/Surg History Medical History Acute confusion Hiatal hernia Chest pain Colitis Hypertension Surgical History History of appendectomy History of tonsillectomy Social History Smoking Status: Never smoker Tobacco Type: Cigarettes Hx Alcohol Use: Yes Alcohol type: hard liquor Hx Substance Use: No Preferred Language: Chinese Communication Ability: Impaired 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 Beliefs That Will Affect Care: None Current Living Situation: Spouse Feels Safe at Home: Yes Assistive Devices: Glasses Results & Data Results & Data Vital Signs (Past 12 Hours) Vital Signs Temp Pulse Pulse Resp BP BP Pulse Ox 10/17/23 13:11 60 14 125/62 96 10/17/23 12:42 57 L 10/17/23 12:30 56 L 20 121/66 94 10/17/23 11:00 54 L 17 117/52 L 96 10/17/23 10:41 51 L 10 L 99 10/17/23 10:09 10/17/23 09:21 36.8 C 124 H 18 123/62 91 O2 Del Method 10/17/23 13:11 Room Air 10/17/23 12:42 10/17/23 12:30 Room Air 10/17/23 11:00 Room Air 10/17/23 10:41 10/17/23 10:09 Room Air 10/17/23 09:21 Room Air PG Care Time/CCT Total # of Minutes Spent Total Time Spent with Patient: Total time spent is greater than 50% in coordination of care (as documented) at patient's floor/unit and/or counseling patient: Coding
--- NOTE | 2023-10-17 13:54 | Electrocardiogram Report ---
Test Reason : Blood Pressure : / mmHG Vent. Rate : 049 BPM Atrial Rate : 049 BPM P-R Int : 274 ms QRS Dur : 178 ms QT Int : 504 ms P-R-T Axes : 009 -26 018 degrees QTc Int : 455 ms Sinus bradycardia with 1st degree A-V block Right bundle branch block Abnormal ECG When compared with ECG of 08-MAR-2022 09:28, No significant change was found Confirmed by Sherif Bryan ([id number]) on 10/17/2023 1:53:52 PM Referred By: REFERRED SELF Confirmed By:Sherif Bryan
--- NOTE | 2023-10-17 14:05 | Hospitalist Consultation ---
Date of Consultation October 17, 2023 Assessment & Plan (1) Status post right hemicolectomy: -Patient is currently post-op day #0 S/P Right Hemicolectomy with [id number] functional end-to-end ileocolic anastomosis with Dr. Laird -Patient was taken emergently to the OR after presenting to the ED earlier today with worsening abd pain, found to have a large Cecal volvulus on CT of the abd/pelvis -No reported intraoperative complications reported, EBL listed as 25, received general anesthesia -Pain control, perioperative abx, DVT PPX, and IV fluids per the primary team -Diet per the primary team -Will add daily CMP, mag, and PT/INR to CBC's ordered by primary team -Please reach out for any questions or concerns -Medicine will continue to follow (2) Agitation: -Patient became significantly agitated and aggressive upon waking in the PACU -Attempt were made by nursing staff to re-direct the patient but these were unsuccessful -The patient was attempting to pull out his NG tube and pull at the badges of his recent surgical site -For the safety of the patient and staff the patient was placed in BL soft wrist restraints -No acute trauma noted on exam -Patient is still unable to be re-directed by myself at the time of my exam -For now we will give 2.5 mg IM Zyprexa and continue q4h prn for anxiety/agitation for the patient's safety and safety of staff -QTc was WNL on ECG obtained prior to his surgery -Will attempt to take restraints off when patient is calm and cooperative (3) Hypertension: -Currently stable -Holding Amlodipine and his lisinopril-HCTZ for now with his strict NPO status -If needed, he can be upgraded to the PCU for IV antihypertensives, but currently stable (4) Memory loss: -Hold PO donepezil for now with NPO status -Contique prn IM zyprexa for now Plan The patient was discussed with Dr. Nation at the time of the consult Supervising Physician Co-Signing Physician Notes I personally saw and examined the patient. I verified all thakur points and agree with Huy Chen PA-C with the following exceptions and/or additions: 83 year old male POD#0 cecal volvulus right hemicolectomy. Unable to get any history from the patient due to dementia with acute delirium. Just asking for help to urinate despite urinary catheter in place. NG tube removed at this time. O/E Alert, not orientated x3, HS RRR, no murmurs, Chest CTAB, Abdo generalized mild tenderness, surgical dressing clean/dry/intact A/P Cecal volvulus - s/p right hemicolectomy. NG tube/VTE, Pain, Diet/bowel management per primary general surgery team Acute delirium - underlying dementia, utilize Zyprexa as needed History of Present Illness Reason for Consultation: Post-op medical management Requesting Physician: Dr. Zenon Laird Attending Physician: Dr. Fahad Nation History of Present Illness Ricardo is an 83 year old male with a PMH significant for chronic memory loss, hypertension, GERD, and colitis who presented to the [facility] ED on 10/17/23 with complaints of acute on subacute abdominal pain. He reportedly have been experiencing mild-moderate abdominal pain for the past 2 weeks, but it significantly increased this am. He was noted to be tachycardic with HR of 124 on arrival but was otherwise stable. Labs were significant for a total bili of 1.4. CT of the abd/pelvis w/IV con was read as "1. 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 There is also dilation of the distal ileum with interloop edema and small volume of abdominal pelvic ascites. 2. Nonspecific borderline enlarged lymph nodes of the right lower quadrant mesentery. 3. No pneumoperitoneum. 4. Prostatomegaly with evidence of chronic outlet obstruction. 5. Cholecystectomy with biliary ductal dilation which may be postsurgical. This could be correlated with laboratory analysis.". The patient was given 1.5L NSS and a dose of Zosyn in the ED. The patient was evaluated by General surgery who took the patient to the OR for exploratory Laparotomy, Possible Bowel Resection, Possible Colostomy. Per the operative report, the patient underwent Right Hemicolectomy with Dr. Laird. EBL was listed as 25 cc, anesthesia type was listed as general, and there were no reported intraoperative complications. At the time of the exam the patient was recovering in the PACU. Per report from the PACU nurses, BL soft wrists restraints had to be applied as the patient was very agitated/combative upon waking and was attempting to removed his NG tube, as-well-as the bandages over his surgical site. The patient was unable to be re-directed prior to placing him in soft restraints. The patient was alert/agitated at the time of my exam. I was able to re-direct him at times, he was able to tell me his name and that he was having pain in his abdomen but was otherwise unable to provide further information. Please refer to Dr. Nation's attestation for any changes to the treatment plan Allergies Allergy/AdvReac Type Severity Reaction Status Date / Time hydromorphone AdvReac Intermediate GI SYMPTOMS Verified 10/17/23 11:48 Home Medications Medication Instructions Recorded Confirmed Type amlodipine 10 mg tablet 10 mg PO DAILY 02/15/21 10/17/23 History aspirin 81 mg tablet,delayed 0 mg PO DAILY 02/15/21 10/17/23 History release (Erin Low Dose Aspirin) cholecalciferol (vitamin D3) 25 0 mcg PO DAILY 02/15/21 10/17/23 History mcg (1,000 unit) tablet (Vitamin D3) lisinopril 20 1 tab PO DAILY 02/15/21 10/17/23 History mg-hydrochlorothiazide 25 mg tablet donepezil 10 mg tablet 10 mg PO HS 10/17/23 10/17/23 History food supplemt, lactose-reduced 1 ea PO DAILY 10/17/23 10/17/23 History (Ensure oral liquid) terazosin 10 mg capsule 10 mg PO HS 10/17/23 10/17/23 History Patient History Medical History (Updated 10/25/23 @ 18:09 by Olinda Freeman PA-C) Acute confusion Hiatal hernia Chest pain Colitis Hypertension Surgical History (Updated 10/19/23 @ 13:16 by Holger Espitia DO) H/O right hemicolectomy (10/17/23) Right Hemicolectomy with ileocoloc anastamosis(Not Applicable) - Zenon Laird DO, FACS History of appendectomy History of tonsillectomy Social History Smoking Status: Never smoker Tobacco Type: Cigarettes Hx Alcohol Use: Yes Alcohol type: hard liquor Hx Substance Use: No Preferred Language: [place] Communication Ability: Impaired Housing Manager Required: No Beliefs That Will Affect Care: None Current Living Situation: Spouse Feels Safe at Home: Yes Assistive Devices: Cane Physical Exam Physical Exam: Physical Exam: General: In mild-moderate distress due to confusion/agitation, stated age, well-nourished, non-toxic appearing HEENT: Normocephalic, atraumatic, no scleral icterus, pupils around round, symmetrical, and reactive to light, NG tube is currently in place without signs of leaking, dry mucus membranes, trachea midline, no thyromegaly Chest/Pulm: No respiratory distress, symmetrical chest expansion, clear br eath sounds throughout Cardiac: RRR, no murmurs noted Abdomen: Large centra surgical site is currently bandaged and without signs of drainage, hypoactive bowel sounds, tender to palpation throughout Musculoskeletal: Patient currently with BL soft wrists in place without signs of trauma, BL SCD's in place on the BL LE's Extremities: Radial, dorsalis pedis, and posterior tibial pulses are intact and symmetrical, no edema noted in the BL LE's Skin: As described above Neuro: Alert and oriented to person only, no focal defects, does not cooperate during the exam, no tremors noted Psych: Confused and agitated Results & Data Results & Data Vital Signs (Past 12 Hours) Vital Signs Temp Pulse Pulse Resp BP BP Pulse Ox 10/17/23 13:11 36.4 C L 60 14 125/62 96 10/17/23 12:42 57 L 10/17/23 12:30 56 L 20 121/66 94 10/17/23 11:00 54 L 17 117/52 L 96 10/17/23 10:41 51 L 10 L 99 10/17/23 10:09 10/17/23 09:21 36.8 C 124 H 18 123/62 91 O2 Del Method 10/17/23 13:11 Room Air 10/17/23 12:42 10/17/23 12:30 Room Air 10/17/23 11:00 Room Air 10/17/23 10:41 10/17/23 10:09 Room Air 10/17/23 09:21 Room Air Laboratory Results Abnormal lab results 10/17/23 10/17/23 Range/Units 10:07 10:15 RBC 4.11 L (4.70-6.10) M/uL Hgb 13.6 L (14.0-18.0) g/dl POC Hgb 12.6 L (14.0-18.0) g/dl Hct 38.6 L (42.0-52.0) % POC Hct 37 L (42-52) % Neut # (Auto) 6.63 H (1.40-6.50) K/uL Logan # (Auto) 0.69 H (0.11-0.59) K/uL POC Chloride 99 L (101-112) mmol/L Glucose 105 H (70-99(Fasting)) mg/dl POC Glucose (other) 103 H (70-99) mg/dl Total Bilirubin 1.4 H (0.2-1.0) mg/dl Globulin 2.1 L (2.5-4.0) gm/dl Albumin/Globulin Ratio 2.1 H (0.9-2) Diagnostic Findings Abdomen/Pelvis CT 10/17/23 10:[address] WITH IV CONTRAST CT DOSE: 893.41 mGy.cm HISTORY: Acute severe abdominal pain. severe ain TECHNIQUE: Multiaxial CT images of the abdomen and pelvis were performed following the IV administration of 94 cc of Optiray, A dose lowering technique was utilized adhering to the principles of ALARA. COMPARISON STUDY: 10/24/2016. FINDINGS: Mild cardiomegaly with extensive coronary artery calcifications. Trace pleural effusions with mild bibasilar densities suggestive of atelectasis versus scarring. No free air identified. Unremarkable spleen, pancreas and adrenal glands. The gallbladder appears surgically absent. Intrahepatic and extrahepatic biliary ductal dilation redemonstrated with the common bile duct measuring up to 9 mm. Scattered hepatic cysts measure up to 1.9 cm. Atrophy of the left hepatic lobe. The portal vein appears patent. Subcentimeter probable cyst of the inferior pole left kidney. Left renal cysts measure up to 5.1 cm. No hydronephrosis. Nonspecific urinary bladder wall thickening with distended urinary bladder. Prostatomegaly. Extensive atherosclerosis of the aorta and branch vessels. Unremarkable IVC. No lymphadenopathy identified. Partial distention of the rectum with nonspecific wall thickening. Small volume of abdominopelvic ascites. 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 Upstream ileum is fluid-filled and dilated measuring up to 3.5 cm with high-grade obstruction. Lymph nodes of the right lower quadrant mesentery measure up to 10 mm. Colonic diverticulosis. No acute fracture. Degenerative changes of the spine, pelvis and hips. IMPRESSION: 1. 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 There is also dilation of the distal ileum with interloop edema and small volume of abdominal pelvic ascites. 2. Nonspecific borderline enlarged lymph nodes of the right lower quadrant mesentery. 3. No pneumoperitoneum. 4. Prostatomegaly with evidence of chronic outlet obstruction. 5. Cholecystectomy with biliary ductal dilation which may be postsurgical. This could be correlated with laboratory analysis. ACT 112: Negative or not required by law. The above report was generated using voice recognition software. It may contain grammatical, syntax or spelling errors. Dictated: 10/17/2023 11:30 AM Transcribed: 10/17/2023 12:07 PM Jose Guadalupe [id number] MARC_Luis Angel [id number] Electronically signed by: Jet Worthington M.D. 10/17/2023 12:11 PM ECG Additional Comments: Sinus bradycardia with 1st degree A-V block Right bundle branch block Abnormal ECG When compared with ECG of 08-MAR-2022 09:28, No significant change was found Confirmed by Sherif Bryan ([id number]) on 10/17/2023 1:53:52 PM PG Care Time/CCT Total # of Minutes Spent Total Time Spent with Patient: Total time spent is greater than 50% in coordination of care (as documented) at patient's floor/unit and/or counseling patient: C[place] [address] IN/OBS CONSULT LVL 4,60M Patient Type Established Medical Decision Making High Complexity Diagnoses Status post right hemicolectomy Z90.49 Agitation R45.1 Hypertension I10 Memory loss R41.3
[2023-10-17] MEDS ORDERED: SUGAMMADEX SODIUM 200 MG/2 ML VIAL IV ONE (15:43)
[2023-10-17] MEDS: BUPIVACAINE LIPOSOME 1.3% 266 MG/20 ML VIAL ONE (16:20)
[2023-10-17] MEDS: BUPIVACAINE 0.5 % 5 MG/1 ML MPF 30ML VIAL ONE (16:20)
--- NOTE | 2023-10-17 16:25 | Post Operative Brief Note ---
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 Right hemicolectomy performed, [id number] functional end-to-end ileocolic anastomosis performed. Exparel injected. Specimens Specimen Description: A. cecal volvulus Drains Mon Catheter Anesthesia Type General Complications none Disposition Accompanied Patient To Recovery: No Disposition: Recovery Room
[2023-10-17] MEDS: fentaNYL citrate PF 100 MCG/2 ML VIAL IV PRN (16:50)
--- NOTE | 2023-10-17 17:45 | XRay Report ---
XR chest 1V portable CLINICAL HISTORY: post-op monitoring COMPARISON STUDY: Chest radiograph September 17, 2023. FINDINGS: Lucency under the hemidiaphragms represents pneumoperitoneum which is expected in the early postoperative setting. Tip of nasogastric tube is within the proximal body of the stomach. Bibasilar opacities favor atelectasis. No evidence for pulmonary edema. No pneumothorax or pleural effusion is present. Cardiomediastinal silhouette is unremarkable. IMPRESSION: 1. Pneumoperitoneum which is expected in the early postoperative setting. 2. Bibasilar opacities suggestive of atelectasis. 3. Tip of nasogastric tube within the proximal body of the stomach. ACT 112: Negative or not required by law. Electronically signed by: Haja Rodriguez M.D. 10/17/2023 5:44 PM
[2023-10-17] MEDS: OLANZapine 10 MG/2.1 ML SDV IM STA (18:01)
--- NOTE | 2023-10-17 18:07 | Operative Report ---
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 Right hemicolectomy performed, [id number] functional end-to-end ileocolic anastomosis performed. Exparel injected. Specimens Cecal volvulus Anesthesia Type General Complications none Disposition Accompanied Patient To Recovery: No Disposition: Recovery Room Indications 83-year-old male presented to the emergency department with chief complaint of abdominal pain. Overall stable, CT scan showed cecal volvulus with obstruction and edema. Plan for exploratory laparotomy, possible bowel resection, possible ostomy. The risks of the procedure were discussed, all questions were answered, and the patient agreed to proceed with surgery as planned. Description of Procedure The patient was properly identified, consented, and taken to the operating room where he was placed in the supine position. General endotracheal anesthesia was induced. A ward catheter, an NG tube, SCDs and a safety belt were placed. Preoperative antibiotics were administered. The patient's abdomen was prepped and draped in the standard sterile fashion. Surgical timeout was performed and all parties were in agreement that this was the correct patient and procedure to be performed and we continued as planned. A midline laparotomy incision was made and deepened down to the fascia with blunt dissection. The fascia was opened with care not to damage the bowel. The abdomen was explored. There was some adhesions in the right lower quadrant from the site of the prior appendectomy. These were taken down with cautery and blunt dissection. The colon was quite redundant. The small bowel was mildly dilated. I ran the small bowel towards the ileocolic valve until I encountered the volvulus. The bowel did not appear ischemic but was dilated and inflamed. I detorsed the bowel as there was no evidence of ischemia. I then proceeded to perform a right hemicolectomy. The white line of Toldt was taken down using electrocautery and blunt dissection. At the cecum and worked proximally to the hepatic flexure. The hepatic flexure was then taken down and the transverse omentum was taken off of the bowel. The bowel appeared healthy. I then chose a resection point in the transverse colon, as well as in the distal ileum. A purple loaded Endo KAUSHIK stapler was then used to divide the bowel at the sites. The mesentery of the bowel was then taken down with the harmonic scalpel. The right branch of the middle colic as well as the ileocolic vessels were controlled with suture ligation. Hemostasis was excellent. The bowel was then resected completely resected and passed off the table as specimen and labeled cecal volvulus. Then decided to perform an [id number]-[id number] functional end-to-end anastomosis. The antimesenteric portion of the staple line was resected and a ileocolic anastomosis was created utilizing purple loaded Endo KAUSHIK stapler x 2. I then resected the common enterotomy as well as the previous staple lines utilizing subsequent fires of the purple loaded Endo KAUSHIK stapler. The anastomosis appeared healthy and patent. I then reinforced the entirety of the staple line with 3-0 silk Lembert sutures. The mesenteric defect was closed with a 3-0 Vicryl suture. The anastomosis appeared viable and was widely patent. There was no evidence of a leak. Hemostasis was confirmed and the abdomen was irrigated with warm saline. The NG tube was confirmed to be in the stomach. The abdomen was again explored and hemostasis was excellent and there was no other abnormalities noted. The anastomosis appeared healthy. The fascia was closed with a #1 looped PDS x 2. The wound was irrigated, 0.5% Marcaine plain mixed with Exparel was injected in the fascia. The skin was closed with lucrecia. A sterile dressing was placed over the wound. The patient was extubated in the operating room and taken to the PACU where he recovered without apparent incident. All sponge, instrument and needle counts were correct at the conclusion of the procedure. The patient tolerated the procedure well. I attest to the content of the Intraoperative Record and any orders documented therein. Any exceptions are noted below.
[2023-10-17] MEDS ORDERED: oxyCODONE HCL IR 5 MG TAB (IMMEDIATE RELEASE) PO PRN ×2 (18:27)
[2023-10-17] MEDS ORDERED: MoRPHine SULFATE 4 MG/ML 1 ML CARP\\VIAL IV PRN (18:27)
[2023-10-17] MEDS: LACTATED RINGER'S 1,000 ML IV SCH (18:42)
[2023-10-17 19:27] LABS: Appearance Urine Clear (Clear); Bilirubin Urine Negative (Negative); Blood Urine Negative (Negative); Color Urine Yellow; Glucose Urine UA 1+ (Negative); Ketones Urine 1+ (Negative); Leukocyte Esterase Urine Negative (Negative); Nitrite Urine Negative (Negative); Protein Urine Negative (Negative); Specific Gravity Urine 1.029 (1.000-1.030); Urobilinogen Urine Negative (Negative); pH Urine 6.5 (4.5-7.5)
--- NOTE | 2023-10-17 19:43 | Anesthesiology Progress Note ---
Date of Service October 17, 2023 Anesthesia Post Procedure Vital Signs Vital Signs: Temp Pulse Pulse Pulse Resp BP BP 10/17/23 19:36 36.8 C 108 H 18 10/17/23 18:59 36.3 C L 84 16 10/17/23 18:30 36.2 C L 84 16 10/17/23 18:10 36.3 C L 73 21 10/17/23 17:55 36.1 C L 77 22 10/17/23 17:40 76 23 10/17/23 17:25 78 24 10/17/23 17:15 78 12 10/17/23 17:05 77 17 10/17/23 16:55 83 21 10/17/23 16:49 36.1 C L 76 22 10/17/23 13:11 36.4 C L 60 14 125/62 10/17/23 12:42 57 L 10/17/23 12:30 56 L 20 121/66 10/17/23 11:00 54 L 17 117/52 L 10/17/23 10:41 51 L 10 L 10/17/23 10:09 10/17/23 09:21 36.8 C 124 H 18 123/62 BP Pulse Ox O2 Del Method O2 Flow Rate 10/17/23 19:36 144/69 H 96 Room Air 10/17/23 18:59 157/64 H 96 Room Air 10/17/23 18:30 112/62 99 Room Air 10/17/23 18:10 138/54 L 98 Nasal Cannula 2 10/17/23 17:55 137/55 L 98 Nasal Cannula 2 10/17/23 17:40 138/57 L 99 Nasal Cannula 2 10/17/23 17:25 139/49 L 95 Room Air 10/17/23 17:15 137/55 L 96 Room Air 10/17/23 17:05 139/52 L 97 Room Air 10/17/23 16:55 135/52 L 93 Room Air 10/17/23 16:49 146/59 H 96 Room Air 10/17/23 13:11 96 Room Air 10/17/23 12:42 10/17/23 12:30 94 Room Air 10/17/23 11:00 96 Room Air 10/17/23 10:41 99 10/17/23 10:09 Room Air 10/17/23 09:21 91 Room Air Pain Intensity Bilateral Lower Abdomen: Pain Intensity: 2 Transfer of Care Handoff Completed per policy Notes Mental Status: alert / awake / arousable and participated in evaluation Patient Amnestic to Procedure: Yes Nausea / Vomiting: adequately controlled Pain: adequately controlled Airway Patency, RR, SpO2: stable & adequate BP & HR: stable & adequate Hydration State: stable & adequate Anesthetic Complications: no major complications apparent and Pt Satisfied with anesthetic care
--- NOTE | 2023-10-17 20:34 | Communication Note ---
Date of Service: October 17, 2023 Patient was visited at bedside. The patient notes that he feels comfortable and denies any significant abdominal pain. He does note some discomfort from his Mon catheter with the sensation that he needs to void. The patient's daughter was present at bedside and notes that he has underlying dementia and therefore is not a reliable historian. On physical exam the patient's abdomen is soft and nondistended. Patient has minimal tenderness to palpation at this time. He is noted to be normotensive. He does have a slight tachycardia and he is afebrile. I did discuss with nursing staff and patient recently pulled out his NG tube. I discussed with Dr. Goff the patient's abdomen is benign at this time and he is not exhibiting any nausea or vomiting is okay to keep the NG tube out at this time. I discussed with the patient's daughter that we are unsure of the length of his hospitalization and will largely depend on his postoperative recovery. I did discuss her there is difficult to ascertain how long he will be in the hospital since he just had surgery only a few hours ago. We will continue to keep her updated.
[2023-10-17] MEDS: PIPERACILLIN/TAZOBACTAM 4.5 GM in DEXTROSE 5% MINI-B 100 ML IV SCH (20:56)
[2023-10-17] MEDS: ACETAMINOPHEN 1,000 MG/100 ML VIAL IV SCH (20:56)
[2023-10-17] MEDS: OLANZapine 10 MG/2.1 ML SDV IM PRN (21:14)
--- OUTSIDE RECORDS SUMMARY | 2023-10-18 07:17 | External Medical Summary | Summary of Care ---
Author Name Unknown Organization [facility] Address [address] [facility] [place] [address] Phone [phone] Care Team Providers Care Traffic Signal Repairer Name Role Phone [place] Primary Care Provider Encounter Details Date Type Department Care Team (Late st Contact Info) Description 10/17/2023 Telephone Family Practice [facility] [address] [place] [id number] Neela Soria MD [address] [place] [id number] Allergies No known active allergiesdocumented as of this encounter (statuses as of 10/17/2023) Medications Medication Sig Dispensed Refills Start Date End Date Status amLODIPine (NORVASC) 10 MG Tablet Take 10 mg by mouth daily. 0 Active Lisinopril-Hydrochlorot hiazide 20-25 MG per tablet Take 1 Tab by mouth daily. 0 Active lisinopril (PRINIVIL) 20 MG Tablet Take 20 mg by mouth daily. 0 Active cholecalciferol, VIT D3, (VITAMIN D3) 1000 UNITS Tablet Take 2,000 Units by mouth daily. 0 Active terazosin (HYTRIN) 5 MG Capsule Take 5 mg by mouth at bedtime. 0 Active Terazosin HCl 2 MG Capsule Take 2 mg by mouth at bedtime. 0 Active Aspirin 81 MG Tablet Take 81 mg by mouth daily. 0 Active documented as of this encounter (statuses as of 10/17/2023) Active Problems No known active problems documented as of this encounter (statuses as of 10/17/2023) Immunizations Name Administration Dates Next Due COVID-19 mRNA, LNP-s, No Pre serve, 2-Dose Series (Pfizer) 12/05/2020,11/07/2020 Seasonal Influenza, Quadrivalent Hd (Fluzone Hd) 06/24/2021 documented as of this encounter Social History Tobacco Use Types Packs/Day Years Used Date Smoking Tobacco: Former Smokeless Tobacco: Never Alcohol Use Standard Drinks/Week Comments Yes 0 (1 standard drink = 0.6 oz pur e alcohol) 1 drink every other day Sex and Gender Information Value Date Recorded Sex Assigned at Not on file Gender Identity Not on file Sexual Orientation Not on file Job Start Date Occupation Industry Not on file Not on file Not on file documented as of this encounter Miscellaneous Notes * Telephone Encounter - Izabella Blanton LPN - 10/17/2023 8:44 AM EST Pt and his walked into the clinic with thoughts that we were an ER. Spoke with pt-- complain of lower abd pain that he describes as sharp and kept repeating "wow I am in a lot of pain". Just started this morning about 45 mins ago. Pt denies N/V, diarrhea, constipation. Pt was unsure of how to get to the ER ([facility] I printed off directions with the map and explanations. I offered calling EMS [facility], both pt and declined. Assisted pt out of -, verbalized confidence that she could get him to the ER. documented in this encounter Plan of Treatment Health Maintenance Due Date Last Done Comments Depression Screening 1952 DTaP,Tdap,and Td Vaccines (1 - Tdap) 1957 Zoster Vaccines (1 of 2) 01/04/1988 Pneumococcal Vaccine: 65+ Years (2 - PPSV23 or PCV20) 05/20/2021 05/20/2020 COVID-19 Vaccine (3 - 2022-2 4 season) 2023 12/05/2020, 11/07/2020 Influenza Vaccine (FLU shot) (#1) 2023 06/24/2021, 05/20/2020 GARDASIL-HPV IMMUNIZATION SERIES Aged Out No longer eligible b ased on patient's age to complete this topic Hepatitis B Aged Out No longer eligi ble based on patient's age to complete this topic MENINGOCOCCAL (MENACTRA/MENVEO) Aged Out No longer eligible b ased on patient's age to complete this topic documented as of this encounter Medical Devices Not on filedocumented as of this encounter Care Teams Traffic Signal Repairer Relationship Specialty Start Date End Date [place] [address] [place] [address] PCP - General 10/29/16 documented as of this encounter
[2023-10-18 08:00] LABS: Basophils # (auto) 0.01 K/uL (0.00-0.20); Basophils % (auto) 0.1 %; Hemoglobin 11.5 g/dl (14.0-18.0); Immature Granulocytes # (auto) 0.05 K/uL (0.01-0.20); Immature Granulocytes % (auto) 0.3 %; Lymphocytes # (auto) 0.51 K/uL (1.20-3.40); Lymphocytes % (auto) 3.5 %; Mean Corpuscular Hemoglobin 33.2 pg (25.0-34.0); Mean Corpuscular Hgb Conc 35.9 g/dL (32.0-36.0); Mean Corpuscular Volume 92.5 fL (80.0-100.0); Mean Platelet Volume 10.5 fL (9.4-12.4); Monocytes # (auto) 1.26 K/uL (0.11-0.59); Monocytes % (auto) 8.7 %; Neutrophils # (auto) 12.59 K/uL (1.40-6.50); Neutrophils % (auto) 87.4 %; Platelet Count 189 K/uL (130-400); RDW Coefficient of Variation 12.3 % (11.5-14.5); RDW Standard Deviation 41.5 fL (36.4-46.3); Red Blood Count 3.46 M/uL (4.70-6.10); White Blood Count 14.42 K/ul (4.8-10.8)
[2023-10-18 08:40] LABS: Albumin Globulin Ratio 2.1 (0.9-2); Albumin Level 3.4 gm/dl (3.4-5.0); BUN Creatinine Ratio 15.7 (10-20); Bilirubin,Total 1.6 mg/dl (0.2-1.0); Calcium 8.1 mg/dl (8.6-10.3); Creatinine Clr Calc Pharmacy 66.9 ml/min; Est GFR (African American) 90.4 ml/min; Globulin 1.6 gm/dl (2.5-4.0); Magnesium 1.4 mg/dl (1.7-2.4); Potassium 3.5 mmol/L (3.5-5.1)
[2023-10-18 08:42] LABS: INR 1.1 (0.9-1.1); Prothrombin Time 12.4 Seconds (9.0-12.0)
[2023-10-18] MEDS: MAGNESIUM SULFATE / D5W 1 GM/100 ML BAG IV SCH (10:52)
--- NOTE | 2023-10-18 11:47 | Hospitalist Progress Note ---
Date of Service October 18, 2023 Assessment & Plan (1) Status post right hemicolectomy: Plan: Admitted for abdominal pain and found to have cecal volvulus on CTAP General surgery primary, Dr Laird s/p Right Hemicolectomy with [id number] functional end-to-end ileocolic anastomosis with Dr. Laird on 10/17. EBL 25cc WBC elevation suspected 2nd to surgery/stress. Afebrile Remains on IV Zosyn NPO NGT removed by patient overnight, soft mitts in place for safety -- monitor ability to remove, ?tomorrow Ward in place at present time IVF per primary @ 120cc/hr Mag 1.4, 3gm IV ordered Pain control/bowel regimen/PT/OT per primary service DVT prophylaxis with SCDs, Lovenox (started 10/19) Should be encouraged to deep breath/cough, incentive spirometer encouraged as able given atelecatasis on admission Pepcid added IV BID for GI prophylaxis (prior admission noting patient was on BID) Monitor labs/exam on repeat On terazosin 10mg HS, likely should be resumed once ward removed given chronic outlet obstruction on CTAP from admission (2) Agitation: Plan: Became agitated/aggressive in PACU and unable to re-direct Given Zyprexa 2.5mg and continued q4h prn as needed (required one additional dose overnight) EKG w/ normal QTC on pre-op EKG and if needing additional dosing should monitor Does appear to be more calm but still pretty lethargic/pulling at ward catheter and remains in place at present time but should monitor. Hopefully able to dc in AM. Could consider low dose seroquel if having issues w/ as well/?better tolerated (3) Hypertension: Plan: BP 162/68 in setting of surgery/pain PO amlodipine, lisinopril/HCTZ on hold given NPO status --> able to take meds w/ sip per surgery and will resume his amlodipine but hold off further for now If needed, could be upgraded to PCU for IV lopressor/other if needed but made IV hydralazine available prn for now and will montor Resume baby aspirin when ok w/ surgery/safe from bleeding risk (4) Memory loss: Plan: Hold PO donepezil for now with NPO status, Zyprexa IM prn (consider seroquel). (B12 259 in 2020 and will add to AM labs and also check TSH for completeness) Frequent orientation, sleep/wake schedules to be encouraged Plan Thank you for allowing hospitalist service to participate in the care of Mr Sanchez. Hospitalist service will follow along in AM. Please call with any questions/concerns. Admission and Anticipated Discharge Date Admission Date: October 17, 2023 Supervising Physician Co-Signing Physician Notes The patient was not seen by me. The chart was reviewed. Case discussed with ANITHA Martinez. Agree with assessment and plan Subjective Eval this morning around 1145, laying in bed, no acute distress. When asked where he was he said "[facility]" and when asked what he had done he said "colon". Still very sleepy. Denies significant pain at present time but is tender to palpation around incisions. Sounds like he has some upper airway secretions/mucus. RN to assist/see if any suctioning needed as patient pulled out his NGT overnight. IVF ordered by primary along with IV abx, I added IV magnesium replacement and will continue to monitor status. Hopefully able to wake up a little more this afternoon and have restraints removed (placed due to pulling NGT and pulling at his catheter) Physical Exam Physical Exam: General 83yo male laying flat in bed, +oral secretions (asked RN to suction), NAD, soft b/l mitts in place, ward draining slightly concentrated yellow urine, fatigued appearing but alert to name/year/stated in [place] and "colon" when asked why he was in the hospital Head atraumatic, normocephalic, mm slightly dry, trachea midline no NGT Resp: even/unloabored, no cough, slightly diminished in the bases, coarse upper airway (improved w/ cough), on room air CV: RRR, no significant m/r/g, no pitting edema/calf tenderness, SCDs in place GI: +BS/slightly hypoactive, no significant distension,soft, appropriately tender to palpation around incisions, slight serosanguineous fluid to dressing MSK/Neuro: nonfocal/no slurred speech but some garbledness due to secretions, follows commands as able with restraints but not fully able to participate in exam some jerking of lower extremities at times but doesn't appear to be bothering patient Psych: alert to person/location, ?events "colon" but not time does continue to pull at his ward Results & Data Results & Data Vital Signs (Past 12 Hours) Vital Signs Temp Pulse Resp BP Pulse Ox O2 Del Method 10/18/23 09:12 Room Air 10/18/23 03:20 36.5 C 98 H 18 162/68 H 94 Room Air 10/18/23 00:57 36.7 C 98 H 18 145/66 H 96 Room Air Laboratory Results 10/18/23 10/17/23 Range/Units 07:21 Unknown WBC 14.42 H (4.8-10.8) K/ul RBC 3.46 L (4.70-6.10) M/uL Hgb 11.5 L (14.0-18.0) g/dl Hct 32.0 L (42.0-52.0) % MCV 92.5 (80.0-100.0) fL MCH 33.2 (25.0-34.0) pg MCHC 35.9 (32.0-36.0) g/dL RDW Std Deviation 41.5 (36.4-46.3) fL RDW Coeff of Jonel 12.3 (11.5-14.5) % Plt Count 189 (130-400) K/uL MPV 10.5 (9.4-12.4) fL Immature Gran % (Auto) 0.3 % Neut % (Auto) 87.4 % Lymph % (Auto) 3.5 % Jefferson % (Auto) 8.7 % Eos % (Auto) 0.0 % Baso % (Auto) 0.1 % Neut # (Auto) 12.59 H (1.40-6.50) K/uL Lymph # (Auto) 0.51 L (1.20-3.40) K/uL Jefferson # (Auto) 1.26 H (0.11-0.59) K/uL Eos # (Auto) 0.00 (0.00-0.50) K/uL Baso # (Auto) 0.01 (0.00-0.20) K/uL Immature Gran # (Auto) 0.05 (0.01-0.20) K/uL PT 12.4 H (9.0-12.0) Seconds INR 1.1 (0.9-1.1) Sodium 132 L (136-145) mmol/L Potassium 3.5 (3.5-5.1) mmol/L Chloride 101 (98-107) mmol/L Carbon Dioxide 25 (21-32) mmol/L Anion Gap 6 (3-11) BUN 14 (6-23) mg/dl Creatinine 0.89 (0.6-1.4) mg/dl Est Cr Clr Drug Dosing 66.9 ml/min Est GFR ( Amer) 90.4 ml/min Est GFR (Non-Af Amer) 78.0 ml/min BUN/Creatinine Ratio 15.7 (10-20) Glucose 158 H (70-99(Fasting)) mg/dl Calcium 8.1 L (8.6-10.3) mg/dl Magnesium 1.4 L (1.7-2.4) mg/dl Total Bilirubin 1.6 H (0.2-1.0) mg/dl AST 21 (13-39) U/L ALT 11 (7-52) U/L Alkaline Phosphatase 36 (34-104) U/L Total Protein 5.0 L D (6.0-8.3) gm/dl Albumin 3.4 (3.4-5.0) gm/dl Globulin 1.6 L (2.5-4.0) gm/dl Albumin/Globulin Ratio 2.1 H (0.9-2) Urine Color Yellow Urine Appearance Clear (Clear) Urine pH 6.5 (4.5-7.5) Ur Specific [place] 1.029 (1.000-1.030) Urine Protein Negative (Negative) Urine Glucose (UA) 1+ H (Negative) Urine Ketones 1+ H (Negative) Urine Blood Negative (Negative) Urine Nitrite Negative (Negative) Urine Bilirubin Negative (Negative) Urine Urobilinogen Negative (Negative) Ur Leukocyte Esterase Negative (Negative) Diagnostic Findings Abdomen/Pelvis CT 10/17/23 10:[address] WITH IV CONTRAST CT DOSE: 893.41 mGy.cm HISTORY: Acute severe abdominal pain. severe ain TECHNIQUE: Multiaxial CT images of the abdomen and pelvis were performed following the IV administration of 94 cc of Optiray, A dose lowering technique was utilized adhering to the principles of ALARA. COMPARISON STUDY: 10/24/2016. FINDINGS: Mild cardiomegaly with extensive coronary artery calcifications. Trace pleural effusions with mild bibasilar densities suggestive of atelectasis versus scarring. No free air identified. Unremarkable spleen, pancreas and adrenal glands. The gallbladder appears surgically absent. Intrahepatic and extrahepatic biliary ductal dilation redemonstrated with the common bile duct measuring up to 9 mm. Scattered hepatic cysts measure up to 1.9 cm. Atrophy of the left hepatic lobe. The portal vein appears patent. Subcentimeter probable cyst of the inferior pole left kidney. Left renal cysts measure up to 5.1 cm. No hydronephrosis. Nonspecific urinary bladder wall thickening with distended urinary bladder. Prostatomegaly. Extensive atherosclerosis of the aorta and branch vessels. Unremarkable IVC. No lymphadenopathy identified. Partial distention of the rectum with nonspecific wall thickening. Small volume of abdominopelvic ascites. 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 Upstream ileum is fluid-filled and dilated measuring up to 3.5 cm with high-grade obstruction. Lymph nodes of the right lower quadrant mesentery measure up to 10 mm. Colonic diverticulosis. No acute fracture. Degenerative changes of the spine, pelvis and hips. IMPRESSION: 1. 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 There is also dilation of the distal ileum with interloop edema and small volume of abdominal pelvic ascites. 2. Nonspecific borderline enlarged lymph nodes of the right lower quadrant mesentery. 3. No pneumoperitoneum. 4. Prostatomegaly with evidence of chronic outlet obstruction. 5. Cholecystectomy with biliary ductal dilation which may be postsurgical. This could be correlated with laboratory analysis. ACT 112: Negative or not required by law. The above report was generated using voice recognition software. It may contain grammatical, syntax or spelling errors. Dictated: 10/17/2023 11:30 AM Transcribed: 10/17/2023 12:07 PM Jose Guadalupe [id number] [place] [id number] Electronically signed by: Jet Worthington M.D. 10/17/2023 12:11 PM Chest X-Ray 10/17/23 17:09 XR chest 1V portable CLINICAL HISTORY: post-op monitoring COMPARISON STUDY: Chest radiograph September 17, 2023. FINDINGS: Lucency under the hemidiaphragms represents pneumoperitoneum which is expected in the early postoperative setting. Tip of nasogastric tube is within the proximal body of the stomach. Bibasilar opacities favor atelectasis. No evidence for pulmonary edema. No pneumothorax or pleural effusion is present. Cardiomediastinal silhouette is unremarkable. IMPRESSION: 1. Pneumoperitoneum which is expected in the early postoperative setting. 2. Bibasilar opacities suggestive of atelectasis. 3. Tip of nasogastric tube within the proximal body of the stomach. ACT 112: Negative or not required by law. Electronically signed by: Haja Rodriguez M.D. 10/17/2023 5:44 PM PG Care Time/CCT Total # of Minutes Spent Total Time Spent with Patient: Total time spent is greater than 50% in coordination of care (as documented) at patient's floor/unit and/or counseling patient: Coding Level of Care Code 95844 SUB INP/OBS CARE 3/50MIN Diagnoses Status post right hemicolectomy Z90.49 Agitation R45.1 Hypertension I10 Memory loss R41.3
--- NOTE | 2023-10-18 13:01 | Surgery Progress Note ---
Date of Service October 18, 2023 Assessment & Plan (1) Status post right hemicolectomy: Plan: POD 1 right hemicolectomy, NG tube pulled out overnight. No vomiting. Appreciate medicine assistance with this patient Continue Mon today, possible removal tomorrow If becomes more awake and shows signs of return of bowel function we will start to advance diet Complete 24 hours antibiotic I-S, out of bed to chair Start Lovenox Dr. 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 He has a history of dementia and pulled his NG tube out overnight, no vomiting. Somewhat somnolent, poor historian. Physical Exam Constitutional: WD/WN, vitals as above + lethargic Gastrointestinal (Abdomen): Inspection/Auscultation: + abdominal surgical incision (Dressing with some serosanguineous strikethrough) Percussion/Palpation: + abdomen tender (Appropriately tender to palpation) and abdomen soft; no guarding and abdomen not rigid Results & Data Vital Signs (Past 12 Hours) Vital Signs Temp Pulse Resp BP Pulse Ox O2 Del Method 10/18/23 09:12 Room Air 10/18/23 03:20 36.5 C 98 H 18 162/68 H 94 Room Air Laboratory Results Laboratory Results - last 24 hr 10/17/23 10/18/23 Unknown 07:21 WBC 14.42 H RBC 3.46 L Hgb 11.5 L Hct 32.0 L MCV 92.5 MCH 33.2 MCHC 35.9 RDW Std Deviation 41.5 RDW Coeff of Jonel 12.3 Plt Count 189 MPV 10.5 Immature Gran % (Auto) 0.3 Neut % (Auto) 87.4 Lymph % (Auto) 3.5 [place] % (Auto) 8.7 Eos % (Auto) 0.0 Baso % (Auto) 0.1 Neut # (Auto) 12.59 H Lymph # (Auto) 0.51 L [place] # (Auto) 1.26 H Eos # (Auto) 0.00 Baso # (Auto) 0.01 Immature Gran # (Auto) 0.05 PT 12.4 H INR 1.1 Sodium 132 L Potassium 3.5 Chloride 101 Carbon Dioxide 25 Anion Gap 6 BUN 14 Creatinine 0.89 Est Cr Clr Drug Dosing 66.9 Est GFR ( Amer) 90.4 Est GFR (Non-Af Amer) 78.0 BUN/Creatinine Ratio 15.7 Glucose 158 H Calcium 8.1 L Magnesium 1.4 L Total Bilirubin 1.6 H AST 21 ALT 11 Alkaline Phosphatase 36 Total Protein 5.0 L D Albumin 3.4 Globulin 1.6 L Albumin/Globulin Ratio 2.1 H Urine Color Yellow Urine Appearance Clear Urine pH 6.5 Ur Specific [place] 1.029 Urine Protein Negative Urine Glucose (UA) 1+ H Urine Ketones 1+ H Urine Blood Negative Urine Nitrite Negative Urine Bilirubin Negative Urine Urobilinogen Negative Ur Leukocyte Esterase Negative PG Care Time/CCT Total # of Minutes Spent Total Time Spent with Patient: Total time spent is greater than 50% in coordination of care (as documented) at patient's floor/unit and/or counseling patient: Coding Level of Care Code 76842 Post Operative Follow-Up Diagnoses Status post right hemicolectomy Z90.49 Cecal volvulus K56.2 Memory loss R41.3
[2023-10-18] MEDS ORDERED: hydrALAZINE HCL 20 MG/ML VIAL IV PRN (15:02)
[2023-10-18] MEDS: amLODIPine BESYLATE 5 MG TAB PO SCH (17:49)
[2023-10-18] MEDS: FAMOTIDINE 20 MG in SYRINGE 3 ML IV SCH (19:51)
[2023-10-19 07:07] LABS: Basophils # (auto) 0.03 K/uL (0.00-0.20); Basophils % (auto) 0.2 %; Eosinophils # (auto) 0.03 K/uL (0.00-0.50); Eosinophils % (auto) 0.2 %; Hematocrit (blood only) 32.7 % (42.0-52.0); Hemoglobin 11.7 g/dl (14.0-18.0); Immature Granulocytes # (auto) 0.05 K/uL (0.01-0.20); Immature Granulocytes % (auto) 0.4 %; Lymphocytes % (auto) 7.8 %; Mean Corpuscular Hemoglobin 33.5 pg (25.0-34.0); Mean Corpuscular Hgb Conc 35.8 g/dL (32.0-36.0); Mean Corpuscular Volume 93.7 fL (80.0-100.0); Mean Platelet Volume 10.5 fL (9.4-12.4); Monocytes # (auto) 1.24 K/uL (0.11-0.59); Monocytes % (auto) 8.8 %; Neutrophils # (auto) 11.72 K/uL (1.40-6.50); Neutrophils % (auto) 82.6 %; Platelet Count 193 K/uL (130-400); RDW Coefficient of Variation 12.7 % (11.5-14.5); RDW Standard Deviation 43.3 fL (36.4-46.3); Red Blood Count 3.49 M/uL (4.70-6.10); White Blood Count 14.17 K/ul (4.8-10.8)
[2023-10-19 07:38] LABS: Albumin Globulin Ratio 1.9 (0.9-2); Albumin Level 3.5 gm/dl (3.4-5.0); BUN Creatinine Ratio 20.5 (10-20); Bilirubin,Total 2.1 mg/dl (0.2-1.0); Calcium 8.6 mg/dl (8.6-10.3); Creatinine Clr Calc Pharmacy 71.7 ml/min; Est GFR (Non-African American) 80.2 ml/min; Globulin 1.8 gm/dl (2.5-4.0); Magnesium 1.9 mg/dl (1.7-2.4); Potassium 3.4 mmol/L (3.5-5.1); Total Protein 5.3 gm/dl (6.0-8.3)
[2023-10-19 07:52] LABS: Thyroid Stimulating Hormone 1.19 uIu/ml (0.300-4.500)
[2023-10-19 08:09] LABS: INR 1.4 (0.9-1.1); Prothrombin Time 14.7 Seconds (9.0-12.0)
[2023-10-19] MEDS: ENOXAPARIN INJ 40 MG/0.4 ML SYR SQ SCH (08:21)
--- NOTE | 2023-10-19 08:29 | Hospitalist Progress Note ---
Date of Service October 19, 2023 Assessment & Plan (1) Status post right hemicolectomy: Plan: Admitted for abdominal pain and found to have cecal volvulus on CTAP General surgery primary, Dr Laird s/p Right Hemicolectomy with [id number] functional end-to-end ileocolic anastomosis with Dr. Laird on 10/17. EBL 25cc WBC elevation suspected 2nd to surgery/stress. Afebrile Zosyn IV by primary, dc'd last evening per 24hr stop. Messaged primary to see if wanting continued (does not) NGT removed 2 evenings ago by patient, soft mitts in place. Given olanzapine 2.5mg IM x 2 on 10/17 and needed 1 dose yesterday evening. Remains w/ mitts in place as pulling at ward Ward to be removed by primary today Trial clear liquid diet per primary Mag replacement ordered, normalized on repeat. K 3.4 and 20meq ordered and will montior IVF/pain meds/PT/OT per primary service DVT proph: SCDs, lovenox Encourage cough/deep breathing Pepcid IV BID for underlying reflux/GI proph added and can continue Hydralazine available prn HTN PT/OT to be undertaken - did let surgery know I have concerns w/ confusion in /unsafe to return home. They are going to reach out to daughter to come up w/ plan. 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 from admission -- will place on flomax HS for this evening given ward dc this morning Would resume baby aspirin when ok w/ surgery/safe from bleeding risk (2) Cecal volvulus: Plan: reason for above, s/p hemicolectomy TB 1.6--> 2.1 management per surgery as above (3) Agitation: Plan: Became agitated/aggressive in PACU and unable to re-direct Given Zyprexa 2.5mg and continued q4h prn as needed (required one additional dose overnight for total of 2 10/17-10/18) EKG w/ normal QTC on pre-op EKG and if needing additional dosing should monitor Does appear to be more calm/alert today but impulsive Ward to be dc, hopefully will help - given one dose olanzapine overnight 10/18-10/19 Ordered PO seroquel 12.5mg if able to take PO to prevent worsening mental status. Olanzapine 2.5mg IM available if needed/unable to take PO (4) Hypertension: Plan: BP 162/68 in setting of surgery/pain PO amlodipine, lisinopril/HCTZ on hold given NPO status --> able to take meds w/ sip per surgery resumned amlodipine but holding lisinopril/HCTZ If needed, could be upgraded to PCU for IV lopressor/other if needed but made IV hydralazine available prn for now Would resume baby aspirin when ok w/ surgery/safe from bleeding risk (5) Memory loss: Plan: Hold PO donepezil for now with NPO status, Zyprexa IM prn (consider seroquel). (B12 259 in 2020 and will add to AM labs and also check TSH for completeness) Frequent orientation, sleep/wake schedules to be encouraged (6) B12 deficiency: Plan: B12 checked as above and was LOW@ 177 -- IM replacement ordered and should continue supplementation at dc (7) Hypomagnesemia: Plan: LOW on labs 10/18, ordered IV replacement --> repeat stable at 1.9 and will monitor (8) Hiatal hernia: Plan: hx of such, prior on pepcid 20mg PO BID -- placed on pepcid IV BID while inpatient for GI prophylaxis as well Plan Thank you for allowing hospitalist service to participate in the care of Mr Jorge santizo. Hospitalist service will follow along in AM. Please call with any questions/concerns. Admission and Anticipated Discharge Date Admission Date: October 17, 2023 Supervising Physician Co-Signing Physician Notes The patient was not seen by me. The chart was reviewed. Case discussed with ANITHA Martinez. Agree with assessment and plan Subjective Given another dose of olanzapine last evening. Could see about low dose seroquel for . Surgery to dc his ward today. Will trial some clear liquids and monitor. Discussed concerns w/ surgery about /safety to return home. They plan on having reach out to daughters to discuss plan at dc as clearly not safe to return home. Patient sitting up in recliner, soft mitts in place, aide did provide some water and he had some belching. Talking more today but difficult to understand at times and talking nonsensical at times. Reports when asked about chest pain that it's "what brought him in" but then when asked if it was abdominal pain he said "I guess that's it". When asked to point where the pain was he pointed out towards the window. reports patient better for her today than days prior. wandering the halls at times Notable for some cognitive deficits herself. Will order Seroquel 12.5mg HS prn to be used first line if able to prevent repeated issues. Soft mitts in place for now, will continue to monitor. Physical Exam Physical Exam: General 83yo sitting up in chair, aide at bedside, soft mitts in place, impulsive at times, in room, more talkative but still confused Head atraumatic, normocephalic, mm slightly dry (improved), trachea midline no NGT Resp: even/unlabored, no cough, slightly diminished in the bases, coarse upper airway (improved w/ cough), on room air 95% CV: RRR, no significant m/r/g, no pitting edema/calf tenderness, SCDs in place GI: +BS/slightly hypoactive, no significant distension,soft, appropriately tender to palpation around incisions, slight serosanguineous fluid to dressing MSK/Neuro: nonfocal/no slurred speech but some garbled/nonsensical at times/difficult to understand some jerking of lower extremities at times but doesn't appear to be bothering patient -- IMPROVED 10/19 Psych: alert to person/location, no time/events but more alert/talkative in general : ward removed this morning Results & Data Results & Data Vital Signs (Past 12 Hours) Vital Signs Temp Pulse Resp BP Pulse Ox O2 Del Method 10/18/23 23:00 36.7 C 72 16 168/70 H 95 Room Air Laboratory Results 10/19/23 Range/Units 06:36 WBC 14.17 H (4.8-10.8) K/ul RBC 3.49 L (4.70-6.10) M/uL Hgb 11.7 L (14.0-18.0) g/dl Hct 32.7 L (42.0-52.0) % MCV 93.7 (80.0-100.0) fL MCH 33.5 (25.0-34.0) pg MCHC 35.8 (32.0-36.0) g/dL RDW Std Deviation 43.3 (36.4-46.3) fL RDW Coeff of Jonel 12.7 (11.5-14.5) % Plt Count 193 (130-400) K/uL MPV 10.5 (9.4-12.4) fL Immature Gran % (Auto) 0.4 % Neut % (Auto) 82.6 % Lymph % (Auto) 7.8 % [place] % (Auto) 8.8 % Eos % (Auto) 0.2 % Baso % (Auto) 0.2 % Neut # (Auto) 11.72 H (1.40-6.50) K/uL Lymph # (Auto) 1.10 L (1.20-3.40) K/uL [place] # (Auto) 1.24 H (0.11-0.59) K/uL Eos # (Auto) 0.03 (0.00-0.50) K/uL Baso # (Auto) 0.03 (0.00-0.20) K/uL Immature Gran # (Auto) 0.05 (0.01-0.20) K/uL PT 14.7 H (9.0-12.0) Seconds INR 1.4 H (0.9-1.1) Sodium 139 (136-145) mmol/L Potassium 3.4 L (3.5-5.1) mmol/L Chloride 107 (98-107) mmol/L Carbon Dioxide 26 (21-32) mmol/L Anion Gap 6 (3-11) BUN 17 (6-23) mg/dl Creatinine 0.83 (0.6-1.4) mg/dl Est Cr Clr Drug Dosing 71.7 ml/min Est GFR ( Amer) 93.0 ml/min Est GFR (Non-Af Amer) 80.2 ml/min BUN/Creatinine Ratio 20.5 H (10-20) Glucose 108 H (70-99(Fasting)) mg/dl Calcium 8.6 (8.6-10.3) mg/dl Magnesium 1.9 (1.7-2.4) mg/dl Total Bilirubin 2.1 H (0.2-1.0) mg/dl AST 39 (13-39) U/L ALT 13 (7-52) U/L Alkaline Phosphatase 37 (34-104) U/L Total Protein 5.3 L (6.0-8.3) gm/dl Albumin 3.5 (3.4-5.0) gm/dl Globulin 1.8 L (2.5-4.0) gm/dl Albumin/Globulin Ratio 1.9 (0.9-2) Vitamin B12 177 L (180-914) pg/ml TSH 1.190 (0.300-4.500) uIu/ml PG Care Time/CCT Total # of Minutes Spent Total Time Spent with Patient: Total time spent is greater than 50% in coordination of care (as documented) at patient's floor/unit and/or counseling patient: Coding Level of Care Code 37254 SUB INP/OBS CARE 3/50MIN Diagnoses Status post right hemicolectomy Z90.49 Cecal volvulus K56.2 Agitation R45.1 Hypertension I10 Memory loss R41.3 B12 deficiency E53.8 Hypomagnesemia E83.42 Hiatal hernia K44.9
[2023-10-19] MEDS: CYANOCOBALAMIN 1000 MCG/ML VIAL IM SCH (10:48)
[2023-10-19] MEDS: POTASSIUM CHLORIDE / WTR 10 MEQ/100 ML PLCT IV SCH (10:55)
--- NOTE | 2023-10-19 13:18 | Surgery Progress Note ---
Date of Service October 19, 2023 Assessment & Plan (1) H/O right hemicolectomy: Plan: will d/c his ward try clears. nursing to call if any signs of aspiration not ready for d/c however will have to discuss d/c plans with pt's daughters as he is not likely to be able to return home and we also have concerns about his wifes ability to be home alone as she has severe confustion as well. Admission and Anticipated Discharge Date Admission Date: October 17, 2023 Subjective pt seen. confused. still in post operative delirium. does not appear to be in pain. Physical Exam Physical Exam: alert but confused abd: soft. nt. incision looks great. dressing changed. Results & Data Vital Signs (Past 12 Hours) Vital Signs O2 Del Method 10/19/23 08:00 Room Air PG Care Time/CCT Total # of Minutes Spent Total Time Spent with Patient: Total time spent is greater than 50% in coordination of care (as documented) at patient's floor/unit and/or counseling patient: Coding Level of Care Code 31844 Post Operative Follow-Up Diagnoses H/O right hemicolectomy Z90.49
[2023-10-19] MEDS: TAMSULOSIN HCL 0.4 MG CAP PO SCH (18:15)
[2023-10-20 06:37] LABS: Basophils # (auto) 0.04 K/uL (0.00-0.20); Basophils % (auto) 0.3 %; Eosinophils % (auto) 0.7 %; Hematocrit (blood only) 34.3 % (42.0-52.0); Hemoglobin 11.8 g/dl (14.0-18.0); Immature Granulocytes # (auto) 0.07 K/uL (0.01-0.20); Immature Granulocytes % (auto) 0.5 %; Lymphocytes # (auto) 1.08 K/uL (1.20-3.40); Lymphocytes % (auto) 7.9 %; Mean Corpuscular Hemoglobin 32.8 pg (25.0-34.0); Mean Corpuscular Hgb Conc 34.4 g/dL (32.0-36.0); Mean Corpuscular Volume 95.3 fL (80.0-100.0); Monocytes # (auto) 1.01 K/uL (0.11-0.59); Monocytes % (auto) 7.4 %; Neutrophils # (auto) 11.37 K/uL (1.40-6.50); Neutrophils % (auto) 83.2 %; Platelet Count 221 K/uL (130-400); RDW Coefficient of Variation 12.7 % (11.5-14.5); RDW Standard Deviation 44.7 fL (36.4-46.3); White Blood Count 13.67 K/ul (4.8-10.8)
[2023-10-20 07:07] LABS: INR 1.3 (0.9-1.1)
[2023-10-20 07:13] LABS: Albumin Globulin Ratio 1.7 (0.9-2); Albumin Level 3.3 gm/dl (3.4-5.0); BUN Creatinine Ratio 21.8 (10-20); Bilirubin,Total 1.6 mg/dl (0.2-1.0); Calcium 8.8 mg/dl (8.6-10.3); Creatinine Clr Calc Pharmacy 68.8 ml/min; Est GFR (African American) 91.2 ml/min; Est GFR (Non-African American) 78.7 ml/min; Globulin 1.9 gm/dl (2.5-4.0); Magnesium 1.8 mg/dl (1.7-2.4); Potassium 3.5 mmol/L (3.5-5.1); Total Protein 5.2 gm/dl (6.0-8.3)
--- NOTE | 2023-10-20 08:21 | Hospitalist Progress Note ---
Date of Service October 20, 2023 Assessment & Plan (1) Status post right hemicolectomy: Plan: Admitted for abdominal pain and found to have cecal volvulus on CTAP General surgery primary, Dr Laird s/p Right Hemicolectomy with [id number] functional end-to-end ileocolic anastomosis with Dr. Laird on 10/17. EBL 25cc WBC elevation suspected 2nd to surgery/stress. Afebrile Zosyn IV by primary, dc'd 10/18 per 24hr stop. Messaged primary to see if wanting continued (does not) NGT removed prior by patient, soft mitts in place Given olanzapine 2.5mg IM x 2 on 10/17 and needed 1 dose 10/18 Clear liquid diet ordered by primary 10/19 and was tolerating Mag/K replacement, improved and monitoring Post-op management per primary Mon dc'd 10/19, placed on flomax HS given underlying BPH (and to be on terazosin at baseline) and did have BS ~390cc last evening but asked RN to administer flomax early and was able to avoid need for straight cath PT/OT consulted- did let surgery know I have concerns w/ confusion in /unsafe to return home. They are going to reach out to daughter to come up w/ plan. CM to follow (consulted for complex needs) DVT proph: SCDs, Lovenox Will dc further restraints, continue 1:1 at bedside for safety Did have episode of emesis once seen this morning, surgery notified and backed diet to NPO for now and to eval, KUB planned for AM Patient w/ equal strength b/l and moving all extremities. No facial droop, however unclear what his baseline status is. If any worsened confusion could consider obtaining CT Head for eval Monitor labs in AM (2) Cecal volvulus: Plan: reason for above, s/p hemicolectomy TB 1.6--> 2.1 --> 1.6. AST 43 management per surgery as above (3) Agitation: Plan: Became agitated/aggressive in PACU and unable to re-direct Given Zyprexa 2.5mg and continued q4h prn as needed (required one additional dose overnight for total of 2 10/17-10/18) EKG w/ normal QTC on pre-op EKG and if needing additional dosing should monitor Does appear to be more calm/alert today but impulsive Mon to be dc, hopefully will help. Continue flomax - given one dose olanzapine overnight 10/18-10/19 Ordered PO seroquel 12.5mg if able to take PO to prevent worsening mental status. Olanzapine 2.5mg IM available if needed/unable to take PO -- DID NOT NEED EITHER LAST EVENING Mitts discontinued, 1:[address] for safety to prevent further agitation from restraints (4) Hypertension: Plan: BP 135/80 PO amlodipine, lisinopril/HCTZ on hold given NPO status --> able to take meds w/ sip per surgery resumed amlodipine but holding lisinopril/HCTZ to prevent deh ydration until reliable PO intake Hydralazine available IV prn if needed Consider resuming ASA if deemed safe from surgery perspective. Given emesis this afternoon/NPO now and high risk for repeat obstruction holding off -- defer to surgery timing to resume (5) Memory loss: Plan: Hold PO donepezil for now with NPO status, Zyprexa IM prn (consider seroquel). (B12 259 in 2020 and will add to AM labs and also check TSH for completeness) Frequent orientation, sleep/wake schedules to be encouraged (6) B12 deficiency: Plan: B12 checked as above and was LOW@ 177 -- IM replacement ordered and should continue supplementation at dc (7) Hypomagnesemia: Plan: LOW on labs 10/18, ordered IV replacement --> repeat stable at 1.9 and will monitor (8) Hiatal hernia: Plan: hx of such, prior on pepcid 20mg PO BID -- placed on pepcid IV BID while inpatient for GI prophylaxis as well Plan Thank you for allowing hospitalist service to participate in the care of Mr Sanchez. Hospitalist service will follow along in AM. Please call with any questions/concerns. Admission and Anticipated Discharge Date Admission Date: October 17, 2023 Supervising Physician Co-Signing Physician Notes The patient was not seen by me. The chart was reviewed. Case discussed with ANITHA Martinez. Agree with assessment and plan Subjective Eval this morning, discontinuing restraints and will continue 1:1 for safety. Had been eating w/ aides in room, BM reported yesterday. Patinet denies any significant abdominal pain, chest pain, shortness of breath at present time. Attempting to cross his legs in bed, abdomen without overt tenderness. No increased LE edema. No vomiting reported. Not yet seen by surgery. No need for olanzapine overnight but low dose seroquel available for if needed. Did NOT require straight cath overnight w/ addition of flomax and this has been continued. Encouraged cough/deep breathing -- continue to monitor for any development of pneumonia. Physical Exam Physical Exam: General 83yo sitting up at the side of the bed with aides, getting gown changed, NAD but mitts in place. Impulsive but not aggressive, instructed to remove mitts and will continue 1:1 for safety Head atraumatic, normocephalic, mm slightly dry (improved compared to 10/19), trachea midline no NGT at present Resp: even/unlabored, no cough, slightly diminished in the bases/bacilar crackles, coarse upper airway (improved w/ cough), on room air 95% CV: RRR, no significant m/r/g, no pitting edema/calf tenderness, SCDs in place GI: +BS/slightly hypoactive, slight distension but no overt tenderness to palpation dressing c/d/i, slight fluid to dressing noted MSK/Neuro: nonfocal/no slurred speech, improvement in ability to communicate but still confused at times/impulsive no further folye Psych: alert to person/name, cooperative at times but also can be impulsive Results & Data Results & Data Vital Signs (Past 12 Hours) Vital Signs Temp Pulse Resp BP Pulse Ox O2 Del Method 10/20/23 07:15 37.1 C 103 H 18 135/80 95 Room Air 10/20/23 03:00 36.6 C 95 H 18 149/74 H 95 Room Air 10/19/23 23:02 36.5 C 91 H 18 143/76 H 95 Room Air Laboratory Results 10/20/23 Range/Units 06:18 WBC 13.67 H (4.8-10.8) K/ul RBC 3.60 L (4.70-6.10) M/uL Hgb 11.8 L (14.0-18.0) g/dl Hct 34.3 L (42.0-52.0) % MCV 95.3 (80.0-100.0) fL MCH 32.8 (25.0-34.0) pg MCHC 34.4 (32.0-36.0) g/dL RDW Std Deviation 44.7 (36.4-46.3) fL RDW Coeff of Jonel 12.7 (11.5-14.5) % Plt Count 221 (130-400) K/uL MPV 10.0 (9.4-12.4) fL Immature Gran % (Auto) 0.5 % Neut % (Auto) 83.2 % Lymph % (Auto) 7.9 % [place] % (Auto) 7.4 % Eos % (Auto) 0.7 % Baso % (Auto) 0.3 % Neut # (Auto) 11.37 H (1.40-6.50) K/uL Lymph # (Auto) 1.08 L (1.20-3.40) K/uL [place] # (Auto) 1.01 H (0.11-0.59) K/uL Eos # (Auto) 0.10 (0.00-0.50) K/uL Baso # (Auto) 0.04 (0.00-0.20) K/uL Immature Gran # (Auto) 0.07 (0.01-0.20) K/uL PT 14.0 H (9.0-12.0) Seconds INR 1.3 H (0.9-1.1) Sodium 138 (136-145) mmol/L Potassium 3.5 (3.5-5.1) mmol/L Chloride 106 (98-107) mmol/L Carbon Dioxide 26 (21-32) mmol/L Anion Gap 6 (3-11) BUN 19 (6-23) mg/dl Creatinine 0.87 (0.6-1.4) mg/dl Est Cr Clr Drug Dosing 68.8 ml/min Est GFR ( Amer) 91.2 ml/min Est GFR (Non-Af Amer) 78.7 ml/min BUN/Creatinine Ratio 21.8 H (10-20) Glucose 116 H (70-99(Fasting)) mg/dl Calcium 8.8 (8.6-10.3) mg/dl Magnesium 1.8 (1.7-2.4) mg/dl Total Bilirubin 1.6 H (0.2-1.0) mg/dl AST 43 H (13-39) U/L ALT 17 (7-52) U/L Alkaline Phosphatase 37 (34-104) U/L Total Protein 5.2 L (6.0-8.3) gm/dl Albumin 3.3 L (3.4-5.0) gm/dl Globulin 1.9 L (2.5-4.0) gm/dl Albumin/Globulin Ratio 1.7 (0.9-2) PG Care Time/CCT Total # of Minutes Spent Total Time Spent with Patient: Total time spent is greater than 50% in coordination of care (as documented) at patient's floor/unit and/or counseling patient: Coding Level of Care Code 89892 SUB INP/OBS CARE 2/35MIN Diagnoses Status post right hemicolectomy Z90.49 Cecal volvulus K56.2 Agitation R45.1 Hypertension I10 Memory loss R41.3 B12 deficiency E53.8 Hypomagnesemia E83.42 Hiatal hernia K44.9
[2023-10-20] MEDS: POTASSIUM CHLORIDE CRTAB 20 MEQ TABCR PO STA (10:53)
--- NOTE | 2023-10-20 11:41 | Surgery Progress Note ---
Date of Service October 20, 2023 Assessment & Plan (1) Status post right hemicolectomy: Plan: Patient at high risk for ileus. Will backing back down to n.p.o. Will obtain KUB tomorrow. Still not coming around from a mentation standpoint although I am unsure of exactly what his baseline is. I plan to call daughters to discuss tomorrow (2) Dementia: Admission and Anticipated Discharge Date Admission Date: October 17, 2023 Subjective Patient seen. He is on one-to-one. He is still completely disoriented and not cooperative. Restraints are off and he is now on one-to-one. He did having trouble drinking his liquid breakfast this morning however he just had 300 cc of emesis. Physical Exam Physical Exam: In bed. Unable to cooperate abd: soft. nt. mild distension. incisions look good. Results & Data Vital Signs (Past 12 Hours) Vital Signs Temp Pulse Resp BP Pulse Ox O2 Del Method 10/20/23 07:15 37.1 C 103 H 18 135/80 95 Room Air 10/20/23 03:00 36.6 C 95 H 18 149/74 H 95 Room Air PG Care Time/CCT Total # of Minutes Spent Total Time Spent with Patient: Total time spent is greater than 50% in coordination of care (as documented) at patient's floor/unit and/or counseling patient: Coding Level of Care Code 40221 Post Operative Follow-Up Diagnoses Status post right hemicolectomy Z90.49 Dementia F03.90
[2023-10-21 07:13] LABS: Basophils # (auto) 0.01 K/uL (0.00-0.20); Basophils % (auto) 0.1 %; Eosinophils # (auto) 0.02 K/uL (0.00-0.50); Eosinophils % (auto) 0.2 %; Hematocrit (blood only) 31.6 % (42.0-52.0); Hemoglobin 11.2 g/dl (14.0-18.0); Immature Granulocytes # (auto) 0.06 K/uL (0.01-0.20); Immature Granulocytes % (auto) 0.5 %; Lymphocytes # (auto) 1.05 K/uL (1.20-3.40); Lymphocytes % (auto) 9.2 %; Mean Corpuscular Hemoglobin 33.3 pg (25.0-34.0); Mean Corpuscular Hgb Conc 35.4 g/dL (32.0-36.0); Mean Platelet Volume 10.3 fL (9.4-12.4); Monocytes # (auto) 0.87 K/uL (0.11-0.59); Monocytes % (auto) 7.7 %; Neutrophils # (auto) 9.35 K/uL (1.40-6.50); Neutrophils % (auto) 82.3 %; Platelet Count 249 K/uL (130-400); RDW Coefficient of Variation 13.1 % (11.5-14.5); Red Blood Count 3.36 M/uL (4.70-6.10); White Blood Count 11.36 K/ul (4.8-10.8)
--- NOTE | 2023-10-21 07:21 | XRay Report ---
KUB HISTORY: Postop. History of cecal volvulus. r/o ileus COMPARISON: Abdomen and pelvis CT 10/17/2023. FINDINGS: Midline skin lucrecia are noted. There are gas-filled dilated loops of large and small bowel seen throughout the abdomen. Findings favor a postoperative ileus given the recent postoperative joya nge. There are suture material in the right side the abdomen. No renal calculi. No ureteral calculi. No pneumoperitoneum or pneumatosis. IMPRESSION: Mildly dilated gas-filled loops of large and small bowel seen throughout the abdomen. Findings favor a postoperative ileus at this time. ACT 112: Negative or not required by law. Electronically signed by: Nikita Pineda M.D. 10/21/2023 7:20 AM
[2023-10-21 07:29] LABS: Albumin Globulin Ratio 1.7 (0.9-2); Albumin Level 3.2 gm/dl (3.4-5.0); BUN Creatinine Ratio 28.1 (10-20); Bilirubin,Total 1.3 mg/dl (0.2-1.0); Calcium 8.8 mg/dl (8.6-10.3); Creatinine Clr Calc Pharmacy 52.5 ml/min; Est GFR (African American) 67.6 ml/min; Est GFR (Non-African American) 58.3 ml/min; Globulin 1.9 gm/dl (2.5-4.0); Magnesium 1.9 mg/dl (1.7-2.4); Potassium 3.5 mmol/L (3.5-5.1); Total Protein 5.1 gm/dl (6.0-8.3)
[2023-10-21 08:07] LABS: INR 1.1 (0.9-1.1); Prothrombin Time 11.9 Seconds (9.0-12.0)
--- NOTE | 2023-10-21 09:17 | Hospitalist Progress Note ---
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 Laird on 10/17. EBL 25cc WBC elevation suspected 2nd to surgery/stress. Afebrile Zosyn IV by primary, dc'd 10/18 per 24hr stop. Messaged primary to see if wanting continued (does not) NGT removed prior by patient, soft mitts in place Given olanzapine 2.5mg IM x 2 on 10/17 and needed 1 dose 10/18. NOTHING FURTHER> Low dose seroquel available for and would prefer this to be used first line if needed 1:1 remains for safety Ward dc'd prior, continue flomax -- has not required straight cath/retention w/ administration and would continue DVT proph: Maddiex Was tolerating clears, however had increased emesis 10/20-10/21 and backed to NPO/IVF resumed and KUB this AM w/ concerns for ileus however discussed w/ Dr Espitia and given mentation at baseline/appearing improved compared to days prior and off restraints without further emesis this morning and abdomen soft (and patient denied significant pain/no grimacing or withdrawal w/ palpation)with +BS would attempt to avoid NGT placement/need for restraints at this time and continue NPO x ice chips/sips and montior KUB in AM 20meq KCL ordered w/ IVF to keep closer to 2 w/ abdominal surgery May need to consult nutrition in AM if remaining NPO through tomorrow. 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 Olanzapine 2.5mg IM available if needed/unable to take PO Mitts discontinued 10/20, 1:[address] for safety to prevent further agitation from restraints Continue flomax (would continue at dc if not taking the terazosin) Does appear to be more calm/alert 10/21, alert to person/place, not year (appears this was his baseline prior admits w/ alert to name/city) No further need for antipsychotics at present (4) Hypertension: Plan: BP 167/72 Resumed amlodipine, holding lisinopril/HCTZ as above (suspect dc HCTZ at dc as likely not enough PO intake at baseline) Consider resuming ASA when ok from surgery perspective (5) Memory loss: Plan: Holding PO donepezil for now with NPO status, Zyprexa IM prn (consider seroquel). (B12 259 in 2020m repeat LOW as below. TSH wnl) Frequent orientation, sleep/wake schedules to be encouraged (6) B12 deficiency: Plan: Checked due to reported memory loss B12 LOW@ 177 -- IM replacement ordered and would continue supplementation at dc (7) Hypomagnesemia: Plan: LOW on labs 10/18, ordered IV replacement --> repeat stable at 1.9 and will monitor. Consider additional 1gm IV to keep closer to 2 (8) Hiatal hernia: Plan: hx of such, prior on pepcid 20mg PO BID -- placed on pepcid IV BID while inpatient for GI prophylaxis as well Plan Thank you for allowing hospitalist service to participate in the care of Mr Daysi whitt. Hospitalist service will follow along in AM. Please call with any questions/concerns. Admission and Anticipated Discharge Date Admission Date: October 17, 2023 Supervising Physician Co-Signing Physician Notes The patient was not seen by me. The chart was reviewed. Case discussed with ANITHA Martinez. Agree with assessment and plan Subjective Evaluated this morning, 1:1 in room for safety. Patient resting in bed upon entry, awake. Alert to name, knows in hospital. Reports abdominal pain not bad today. Did have episode of brown emesis reported by overnight nursing (?last evening vs overnight, not documented). Does have +BS on exam but discussed wanting to have surgery clear prior to giving any diet today given the emesis. He is appearing calm/cooperative at present time, appears closer to baseline given prior admissions w/ chronic memory loss w/ only being alert to person/city. Questions/concerns addressed. Messaged surgery following encounter of status. Physical Exam Physical Exam: General 83yo resting in bed, 1:1 at bedside, appears calm/comfortable, NAD, no significant agitation, no restraints/mitts in place Head atraumatic, normocephalic, mm slightly dry , trachea midline no NGT at present Resp: even/unlabored, no cough, slightly diminished in the bases/basilar crackle s,on room air CV: RRR, no significant m/r/g, no pitting edema/calf tenderness, SCDs in place GI: +BS, slight distension, no overt tenderness to palpation, appropriately tender around incisions, no guarding/rigidity dressing c/d/i MSK/Neuro: nonfocal/no slurred speech, improvement in ability to communicate and answering questions more appropriately howeveer confusion about year/events persists (appears this may be more his baseline though) : no ward Psych: alert to person/name, cooperative today compared to days prior Results & Data Results & Data Vital Signs (Past 12 Hours) Vital Signs O2 Del Method 10/20/23 23:07 Room Air Laboratory Results 10/21/23 Range/Units 06:19 WBC 11.36 H (4.8-10.8) K/ul RBC 3.36 L (4.70-6.10) M/uL Hgb 11.2 L (14.0-18.0) g/dl Hct 31.6 L (42.0-52.0) % MCV 94.0 (80.0-100.0) fL MCH 33.3 (25.0-34.0) pg MCHC 35.4 (32.0-36.0) g/dL RDW Std Deviation 45.0 (36.4-46.3) fL RDW Coeff of Jonel 13.1 (11.5-14.5) % Plt Count 249 (130-400) K/uL MPV 10.3 (9.4-12.4) fL Immature Gran % (Auto) 0.5 % Neut % (Auto) 82.3 % Lymph % (Auto) 9.2 % [place] % (Auto) 7.7 % Eos % (Auto) 0.2 % Baso % (Auto) 0.1 % Neut # (Auto) 9.35 H (1.40-6.50) K/uL Lymph # (Auto) 1.05 L (1.20-3.40) K/uL [place] # (Auto) 0.87 H (0.11-0.59) K/uL Eos # (Auto) 0.02 (0.00-0.50) K/uL Baso # (Auto) 0.01 (0.00-0.20) K/uL Immature Gran # (Auto) 0.06 (0.01-0.20) K/uL PT 11.9 (9.0-12.0) Seconds INR 1.1 (0.9-1.1) Sodium 140 (136-145) mmol/L Potassium 3.5 (3.5-5.1) mmol/L Chloride 106 (98-107) mmol/L Carbon Dioxide 26 (21-32) mmol/L Anion Gap 8 (3-11) BUN 32 H (6-23) mg/dl Creatinine 1.14 (0.6-1.4) mg/dl Est Cr Clr Drug Dosing 52.5 ml/min Est GFR ( Amer) 67.6 ml/min Est GFR (Non-Af Amer) 58.3 ml/min BUN/Creatinine Ratio 28.1 H (10-20) Glucose 133 H (70-99(Fasting)) mg/dl Calcium 8.8 (8.6-10.3) mg/dl Magnesium 1.9 (1.7-2.4) mg/dl Total Bilirubin 1.3 H (0.2-1.0) mg/dl AST 29 (13-39) U/L ALT 16 (7-52) U/L Alkaline Phosphatase 36 (34-104) U/L Total Protein 5.1 L (6.0-8.3) gm/dl Albumin 3.2 L (3.4-5.0) gm/dl Globulin 1.9 L (2.5-4.0) gm/dl Albumin/Globulin Ratio 1.7 (0.9-2) Diagnostic Findings KUB X-Ray 10/21/23 06:00 KUB HISTORY: Postop. History of cecal volvulus. r/o ileus COMPARISON: Abdomen and pelvis CT 10/17/2023. FINDINGS: Midline skin lucrecia are noted. There are gas-filled dilated loops of large and small bowel seen throughout the abdomen. Findings favor a postoperative ileus given the recent postoperative change. There are suture material in the right side the abdomen. No renal calculi. No ureteral calculi. No pneumoperitoneum or pneumatosis. IMPRESSION: Mildly dilated gas-filled loops of large and small bowel seen throughout the abdomen. Findings favor a postoperative ileus at this time. ACT 112: Negative or not required by law. Electronically signed by: Nikita Pineda M.D. 10/21/2023 7:20 AM PG Care Time/CCT Total # of Minutes Spent Total Time Spent with Patient: Total time spent is greater than 50% in coordination of care (as documented) at patient's floor/unit and/or counseling patient: Coding Level of Care Code 22149 SUB INP/OBS CARE 3/50MIN Diagnoses Status post right hemicolectomy Z90.49 Cecal volvulus K56.2 Agitation R45.1 Hypertension I10 Memory loss R41.3 B12 deficiency E53.8 Hypomagnesemia E83.42 Hiatal hernia K44.9
--- NOTE | 2023-10-21 11:00 | Surgery Progress Note ---
Date of Service October 21, 2023 Assessment & Plan (1) Ileus following gastrointestinal surgery: Plan: I do not believe he will tolerate NG tube placement without restraints. He likely self decompressed with the emesis. The abdomen does not look distended currently. I discussed with the medical team we will simply observe him over today and repeat KUB tomorrow. Will also reach out to the patient's family today to discuss plans going forward. We may need to consider some peripheral hyperalimentation soon (2) Dementia: (3) Status post right hemicolectomy: Admission and Anticipated Discharge Date Admission Date: October 17, 2023 Subjective Patient seen. Discussed with his nurse. He continues to be quite confused however he appears much less agitated today. He did have a large emesis last night. KUB shows findings consistent with postoperative ileus. Physical Exam Physical Exam: Confused but less agitated Incision looks good Abdomen is soft. Minimal distention. Results & Data Vital Signs (Past 12 Hours) Vital Signs O2 Del Method 10/20/23 23:07 Room Air PG Care Time/CCT Total # of Minutes Spent Total Time Spent with Patient: Total time spent is greater than 50% in coordination of care (as documented) at patient's floor/unit and/or counseling patient: Coding Level of Care Code 61320 Post Operative Follow-Up Diagnoses Ileus following gastrointestinal surgery K91.89; K56.7 Dementia F03.90 Status post right hemicolectomy Z90.49
[2023-10-21] MEDS: POTASSIUM CHLORIDE / WTR 10 MEQ/100 ML PLCT IV SCH (11:28)
--- NOTE | 2023-10-21 14:06 | Communication Note ---
Date of Service: October 21, 2023 CDS Query Post op-ileus -on KUB, in patient admitted s/p hemicolectomy for cecal volvulus, already at high risk for repeat obstruction. Not complication of care NPO/IVF, repeat KUB in AM. HOLDING off NGT as outlined in A/P as abdomen soft/no further emesis but requiring close monitoring and placement if recurs Possible consultation w/ nutrition in AM if remaining NPO for nutrition
[2023-10-21] MEDS: ACETAMINOPHEN 1,000 MG/100 ML VIAL IV PRN (16:41)
--- NOTE | 2023-10-21 21:19 | Communication Note ---
Date of Service: October 21, 2023 Note, nurse stating patient had about of emesis earlier this evening. She does note that the patient surgical team was trying to hold on placing NG tube. In light of the patient's recent emesis, I have asked the nurses to place an NG tube. I was notified by nursing that NG tube was placed. Upon placement of NG tube approximately 1 L of gastric contents was immediately suctioned out. Patient does not appear to be in any distress. His abdomen is soft and nondistended at this point. Will continue NG tube to low intermittent suction this evening.
[2023-10-21] MEDS: QUEtiapine FUMARATE 25 MG TABLET PO PRN (22:27)
[2023-10-22 07:12] LABS: Basophils # (auto) 0.05 K/uL (0.00-0.20); Basophils % (auto) 0.3 %; Eosinophils # (auto) 0.01 K/uL (0.00-0.50); Eosinophils % (auto) 0.1 %; Hematocrit (blood only) 31.7 % (42.0-52.0); Hemoglobin 10.8 g/dl (14.0-18.0); Immature Granulocytes # (auto) 0.07 K/uL (0.01-0.20); Immature Granulocytes % (auto) 0.4 %; Lymphocytes # (auto) 0.91 K/uL (1.20-3.40); Lymphocytes % (auto) 5.7 %; Mean Corpuscular Hemoglobin 32.7 pg (25.0-34.0); Mean Corpuscular Hgb Conc 34.1 g/dL (32.0-36.0); Mean Corpuscular Volume 96.1 fL (80.0-100.0); Mean Platelet Volume 9.8 fL (9.4-12.4); Monocytes % (auto) 6.3 %; Neutrophils # (auto) 13.89 K/uL (1.40-6.50); Neutrophils % (auto) 87.2 %; Platelet Count 253 K/uL (130-400); RDW Coefficient of Variation 13.3 % (11.5-14.5); RDW Standard Deviation 47.3 fL (36.4-46.3); White Blood Count 15.93 K/ul (4.8-10.8)
[2023-10-22 07:46] LABS: Albumin Globulin Ratio 1.7 (0.9-2); Albumin Level 3.3 gm/dl (3.4-5.0); BUN Creatinine Ratio 37.9 (10-20); Bilirubin,Total 1.9 mg/dl (0.2-1.0); Calcium 8.8 mg/dl (8.6-10.3); Creatinine Clr Calc Pharmacy 68.8 ml/min; Est GFR (African American) 91.2 ml/min; Est GFR (Non-African American) 78.7 ml/min; Globulin 1.9 gm/dl (2.5-4.0); Magnesium 1.8 mg/dl (1.7-2.4); Potassium 3.5 mmol/L (3.5-5.1); Total Protein 5.2 gm/dl (6.0-8.3)
--- NOTE | 2023-10-22 08:31 | XRay Report ---
KUB CLINICAL HISTORY: Enteric tube placement. FINDINGS: An AP, portable, upright view of the lower chest and upper abdomen is compared to study per formed earlier the same day 10/21/2023 and correlated with abdominal CT dated 10/17/2023. An enteric tub e is in place. The tip projects below the diaphragm over the proximal stomach. There is persistent ga seous distention of the small bowel loops with air-fluid levels. No intraperitoneal free air is clear ly seen below the diaphragm. Midline skin clips are in place. No abnormal abdominal calcifications ar e seen. There is advanced spondylosis throughout the imaged spine. IMPRESSION: 1. An enteric tube has been placed as above. 2. There is persistent gaseous distention of the small bowel loops with air-fluid levels. This could represent ileus versus obstruction. Correlate clinically. Electronically signed by: Todd Aleman M.D. 10/22/2023 8:28 AM
--- NOTE | 2023-10-22 09:35 | XRay Report ---
KUB HISTORY: Postop. f/u ileus COMPARISON: KUB 10/21/2023. FINDINGS: Nasogastric tube terminates in the stomach. Dilated gas-filled loops of large and small bow el are again seen throughout the abdomen. This favors a postoperative ileus. Lower midline skin stapl es are again noted from the recent incision. Suture material within the right midabdomen. No renal c alculi. No ureteral calculi. No pneumoperitoneum or pneumatosis. IMPRESSION: 1. Multiple dilated gas-filled loops of large and small bowel again seen throughout the abdomen. This suggests a postoperative ileus. 2. Nasogastric tube terminates in the stomach. ACT 112: Negative or not required by law. Electronically signed by: Nikiat Pineda M.D. 10/22/2023 9:34 AM
--- NOTE | 2023-10-22 10:31 | Surgery Progress Note ---
Date of Service October 22, 2023 Assessment & Plan (1) Ileus following gastrointestinal surgery: Plan: Keep NG tube documented 1800 over 24h (2) Status post right hemicolectomy: Plan: POD 5 [place] midline CDI no s/s of infection noted, pt does not need a surgical dress at this point however due to his confusion I think it best we keep a cover over lucrecia, Replaced small amount of gauze and medipore tape. VSS Aid reports pt started passing flatus this AM Continue NG tube at this time Elevation in WBC 15 (11) spoke with hospitalist they will check a UA Start PPN Will continue to monitor Admission and Anticipated Discharge Date Admission Date: October 17, 2023 Subjective Patient remains confused Currently in arm restraints and 1:1 Has NG tube Aid reports patient started passing flatus this AM Review of Systems Review of Systems: Confused Physical Exam Physical Exam: Confused No documented fevers Respiratory: normal respiratory effort; no respiratory distress Cardiovascular: Rate/Rhythm: regular rate Gastrointestinal (Abdomen): Inspection/Auscultation: + abdominal surgical incision ([place] to midline CDI ); abdomen not distended Percussion/Palpation: abdomen soft Results & Data Vital Signs (Past 12 Hours) Vital Signs O2 Del Method 10/21/23 22:39 Room Air Results Complete Blood Count Results: 2 RBC 3.30 M/uL (4.70-6.10) L 10/22/23 WBC 15.93 K/ul (4.8-10.8) H 10/22/23 Hgb 10.8 g/dl (14.0-18.0) L 10/22/23 Hct 31.7 % (42.0-52.0) L 10/22/23 Plt Count 253 K/uL (130-400) 10/22/23 Results CMP Results: Na 142 mmol/L (136-145) 10/22/23 K 3.5 mmol/L (3.5-5.1) 10/22/23 Cl 107 mmol/L (98-107) 10/22/23 CO2 28 mmol/L (21-32) 10/22/23 Anion Gap 7 (3-11) 10/22/23 BUN 33 mg/dl (6-23) H 10/22/23 Creatinine 0.87 mg/dl (0.6-1.4) 10/22/23 Estimated GFR ( Amer) 91.2 ml/min 10/22/23 Estimated GFR (Non-Af Amer) 78.7 ml/min 10/22/23 BUN/Creatinine Ratio 37.9 (10-20) H 10/22/23 Glu 119 mg/dl (70-99(Fasting)) H 10/22/23 Ca 8.8 mg/dl (8.6-10.3) 10/22/23 Phosphorus Level 2.6 mg/dl (2.5-4.9) 10/22/23 Total Bilirubin 2.1 mg/dl (0.2-1.0) H 10/22/23 AST 30 U/L (13-39) 10/22/23 ALT 25 U/L (7-52) 10/22/23 Alkaline Phosphatase 41 U/L (34-104) 10/22/23 TP 5.2 gm/dl (6.0-8.3) L 10/22/23 Albumin 3.3 gm/dl (3.4-5.0) L 10/22/23 Globulin 1.9 gm/dl (2.5-4.0) L 10/22/23 Albumin/Globulin Ratio 1.7 (0.9-2) 10/22/23 PG Care Time/CCT Total # of Minutes Spent Total Time Spent with Patient: Total time spent is greater than 50% in coordination of care (as documented) at patient's floor/unit and/or counseling patient: Coding Level of Care Code 64413 SUB INP/OBS CARE 25MIN Diagnoses Ileus following gastrointestinal surgery K91.89; K56.7 Status post right hemicolectomy Z90.49
[2023-10-22] MEDS ORDERED: TPN/PPN CONSULT PHARMACY STA (12:28)
[2023-10-22] MEDS ORDERED: TPN/PPN CONSULT PHARMACY PRN (12:31)
[2023-10-22 13:05] LABS: Bilirubin,Total 2.1 mg/dl (0.2-1.0); Phosphorus 2.6 mg/dl (2.5-4.9)
[2023-10-22 13:15] LABS: Appearance Urine Clear (Clear); Bacteria Urine Automated Negative (Negative); Bilirubin Urine Negative (Negative); Blood Urine Negative (Negative); Cast Urine Automated 0 /lpf (0-5); Color Urine Yellow; Glucose Urine UA Negative (Negative); Ketones Urine 2+ (Negative); Leukocyte Esterase Urine Negative (Negative); Nitrite Urine Negative (Negative); Protein Urine Trace (Negative); RBC Urine Automated 0-4 /hpf (0-4); Specific Gravity Urine 1.022 (1.000-1.030); Urobilinogen Urine Negative (Negative)
[2023-10-22] MEDS ORDERED: DEXTROSE 10% 1,000 ML IV PRN (13:45)
--- NOTE | 2023-10-22 14:25 | Pharmacy Report ---
Pharmacy Initial PN Consult Nt - Date of Service October 22, 2023 - Scope Pharmacy has been consulted on this date to manage parenteral nutrition orders and order appropriate labs. As part of the Nutrition Support Team Guidelines, pharmacy will work in conjunction with dietary when determining the patients caloric needs. - Subjective * The patient is a 83 year old Male admitted on 10/17/23 for S/P RIGHT HEMICOLECTOMY. * Patient is to receive parenteral nutrition for prolonged NPO status s/p hemicolectomy. * - Objective Vascular Access: * Patient currently has a peripheral line. * Peripheral line was confirmed by IV Team to be acceptable for PPN use on this date. Height & Weight (Last Documented) Height 6 ft 2 in Weight 78.4 kg Diet Order(s) 10/20/23 11:40 NPO Intake & Ouput (24hrs) 10/21/23 10/22/23 10/23/23 06:59 06:59 06:59 Intake Total 3016 / 3016 2228 / 2228 916 / 916 Output Total 1000 / 1000 3150 / 3150 500 / 500 Balance 2015 -2 / -922 416 / 416 Selected Laboratory Results 10/22/23 10/22/23 06:23 12:32 Sodium 142 Potassium 3.5 Chloride 107 Carbon Dioxide 28 Anion Gap 7 BUN 33 H Creatinine 0.87 Est GFR ( Amer) 91.2 Est GFR (Non-Af Amer) 78.7 BUN/Creatinine Ratio 37.9 H Glucose 119 H Calcium 8.8 Phosphorus 2.6 Magnesium 1.8 Total Bilirubin 1.9 H 2.1 H AST 34 30 ALT 26 25 Alkaline Phosphatase [address] - Follow Up Nutrition Assessment Start: 10/18/23 13:19 Freq: Status: Active Protocol: Document 10/22/23 12:43 WN (Rec: 10/22/23 12:59 WN [id number]) RD - Initial Nutrition Assessment Start: 10/18/23 10:01 Freq: Status: Active Protocol: Document 10/18/23 10:01 ELM (Rec: 10/18/23 10:40 ELM [id number]) Co-signed By Ld Novoa - Assessment & Plan Assessment: * Appreciate dietitians recommendations for macronutrients- PPN goal is Clinimix 4.25/5 2L/day + 50gm daily lipids. No baseline electrolyte abnormalities. LR @ 125ml/hr to d/c once PPN begins. PPN initiated at 50% of goal for day 1. Plan: * For Day #1 of PPN administration, the following will be ordered: * Macronutrients: * Amino Acids: 43 grams/day * Dextrose: 50 grams/day * Lipids: 50 grams/day * Micronutrients: * TPN electrolytes: - mL/day - Contains 35 mEq Na, 20 mEq K, 4.5 mEq Ca, 5 mEq Mg, 35 mEq Cl, 29.5 mEq Acetate per 20 mL * Sodium phosphate: - mMol/day * Sodium chloride: 25 mEq/day * Sodium acetate: 50 mEq/day * Potassium phosphate: 20 mMol/day * Potassium chloride: - mEq/day * Potassium acetate: - mEq/day * Magnesium sulfate: 8.12 mEq/day * Calcium gluconate: - mEq/day * Multivitamins: 10 mL/day * Trace elements: 1 mL/day * Thiamine: 100 mg/day * Folic Acid: - mg/day * Total volume of 1056 mL will be infused over 24 hours and will provide 840 kcal/day * Patient is on PPN which has a maximum mOsm/L of 900. Final osmolarity of current solution is 836 mOsm/L. * Labs will be ordered per PN protocol. * Pharmacy will follow and adjust PN orders on a daily basis. Thank you!
--- NOTE | 2023-10-22 16:00 | Hospitalist Progress Note ---
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 Laird on 10/17. EBL 25cc - WBC elevation suspected 2nd to surgery/stress. Afebrile. Zosyn d/c 10/18 Patient initially tolerating clears, but that had increased emesis. Converted to NPO 10/21. Still with emesis and KUB showing volvulus --NG tube placed 10/21 -10/22: NG tube with >1800mL output, to remain in place. Discussed with surgery [employer] --> plan to start PPN -stop IVF with initiation of PPN reported suprapubic pain 10/22 --> UA negative WBC 15 today, afebrile. 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 Denies issues with sundowning at home - UA negative, suspect related to hopsital delirium (4) Hypertension: Plan: Resumed amlodipine holding lisinopril/HCTZ (suspect dc HCTZ at dc as likely not enough PO intake at baseline) Consider resuming ASA when ok from surgery perspective (5) Memory loss: Plan: Resume PO donepezil Frequent orientation, sleep/wake schedules to be encouraged (6) B12 deficiency: Plan: Checked due to reported memory loss B12 LOW@ 177 -- IM replacement ordered and would continue supplementation at dc (7) Hypomagnesemia: Plan: LOW on labs 10/18, ordered IV replacement --> now stable (8) Hiatal hernia: Plan: hx of such, prior on pepcid 20mg PO BID -- placed on pepcid IV BID while inpatient for GI prophylaxis as well Plan DVT proh: Lovenox Thank you for allowing hospitalist service to participate in the care of Mr Jorge santizo. Hospitalist service will follow along in AM. Please call with any questions/concerns. daughter updated by phone Admission and Anticipated Discharge Date Admission Date: October 17, 2023 Subjective patient remains confused. However is able to express suprapubic pain. Currently with NG tube in place and 2 point restraints, 1:1 at bedside no BM since surgery but is passing gas Review of Systems Review of Systems: All systems reviewed & are unremarkable except as noted in Subjective Physical Exam Physical Exam: General: very restless in bed, trying to get out but redirectable, VS as above Resp: normal respiratory effort, lungs clear to auscultation CV: RRR, no murmur, Abd: normal bowel sounds, mild suprapubic tenderness , no hepatosplenomegaly Extremities: Moves all extremities, no edema Neuro: Alert to self Results & Data Results & Data Vital Signs (Past 12 Hours) Vital Signs Temp Pulse Resp BP Pulse Ox O2 Del Method 10/22/23 07:40 37.0 C 83 18 167/73 H 92 Room Air Laboratory Results CBC and chemistry reviewed PG Care Time/CCT Total # of Minutes Spent Total Time Spent with Patient: Total time spent is greater than 50% in coordination of care (as documented) at patient's floor/unit and/or counseling patient: Coding Level of Care Code 47293 SUB INP/OBS CARE 3/50MIN Diagnoses Status post right hemicolectomy Z90.49 Cecal volvulus K56.2 Agitation R45.1 Hypertension I10 Memory loss R41.3 B12 deficiency E53.8 Hypomagnesemia E83.42 Hiatal hernia K44.9
[2023-10-22] MEDS: CLINOLIPID 20% IV FAT EMULSION 250 ML IV SCH (16:15)
[2023-10-22] MEDS: PERIPHERAL TPN IV SCH (16:15)
[2023-10-22] MEDS: [UNRECOGNIZED DRUG - OTHER] IV SCH (16:15)
[2023-10-22] MEDS: STOP CLINOLIPID SCH (22:23)
[2023-10-22] MEDS: QUEtiapine FUMARATE 25 MG TABLET PO SCH (22:36)
[2023-10-22] MEDS: DONEPEZIL HCL 10 MG TAB PO SCH (22:36)
[2023-10-23] MEDS ORDERED: PANTOPRAZOLE BOLUS/DRIP IV STA (00:41)
[2023-10-23] MEDS: PANTOprazole 80 MG in DEXTROSE 5% 100 ML IV ONE (01:14)
[2023-10-23 01:25] LABS: Hematocrit (blood only) 30.9 % (42.0-52.0); Hemoglobin 10.4 g/dl (14.0-18.0)
--- NOTE | 2023-10-23 01:29 | Communication Note ---
Date of Service: October 23, 2023 I was called by RN at approximately 12:37 AM on 10/23/2023 that patient had a large bowel movement of melanotic indurated appearing stool. Upon receiving this notification I immediately ordered a stat hemoglobin and hematocrit. I placed the patient's Lovenox on hold. Patient is currently receiving Pepcid for GI prophylaxis provide switched this to a Protonix bolus/drip. I arrived to the bedside approximately 20 minutes after receiving this call. The patient is noted to be pleasantly confused which is consistent with previous exams. He did not complain of much in the way of abdominal pain and just noted his abdomen is "a little sore.". The patient's vitals were reviewed and he is normotensive with a blood pressure of 168/82. His heart rate is in the 90s. He is afebrile. On exam the patient's breathing is nonlabored. His abdomen is soft and nondistended. He has an NG tube in place draining bilious material. With the assistance of the nursing staff I did perform a rectal exam and he was noted to have melanotic appearing stool that was markedly heme positive on Hemoccult testing. Patient is currently hemodynamically stable and does not appear to be in any distress. Will continue with the plan as outlined above (holding Lovenox, initiating Protonix bolus/drip, and checking a stat hemoglobin and hematocrit). In addition it should be noted the patient has repeat labs ordered for the morning we will continue to trend his blood work. Shortly after this visit with the patient was called by the nurse that the patient became acutely agitated. I reported the bedside within 2 minutes but by the time of my arrival the patient had been called. He did have an episode of hypoxia where his pulse ox dropped into the mid 80s but responded to oxygen. He was on 2 L of oxygen at the time of my arrival with a pulse ox of approximately 92%. He again did not appear to be in any distress. I discussed with the nursing staff and nursing air cargo ground operations supervisor and they feel comfortable managing the patient at the present time. After this visit the patient stat hemoglobin and hematocrit that I had ordered returned and his hemoglobin is noted to be 10.4 and his hematocrit is 30.9. These values did not represent a a significant drop from values on laboratories from the morning of 10/22/2023. Will continue monitoring the patient closely.
[2023-10-23] MEDS: PANTOprazole 40 MG in DEXTROSE 5% MINI-B 100 ML IV SCH (01:42)
[2023-10-23 07:05] LABS: Basophils # (auto) 0.02 K/uL (0.00-0.20); Basophils % (auto) 0.2 %; Eosinophils # (auto) 0.12 K/uL (0.00-0.50); Eosinophils % (auto) 0.9 %; Hematocrit (blood only) 30.6 % (42.0-52.0); Hemoglobin 10.6 g/dl (14.0-18.0); Immature Granulocytes # (auto) 0.09 K/uL (0.01-0.20); Immature Granulocytes % (auto) 0.7 %; Lymphocytes # (auto) 1.06 K/uL (1.20-3.40); Lymphocytes % (auto) 8.3 %; Mean Corpuscular Hemoglobin 33.1 pg (25.0-34.0); Mean Corpuscular Hgb Conc 34.6 g/dL (32.0-36.0); Mean Corpuscular Volume 95.6 fL (80.0-100.0); Mean Platelet Volume 9.8 fL (9.4-12.4); Monocytes # (auto) 1.16 K/uL (0.11-0.59); Monocytes % (auto) 9.1 %; Neutrophils # (auto) 10.29 K/uL (1.40-6.50); Neutrophils % (auto) 80.8 %; Platelet Count 264 K/uL (130-400); RDW Coefficient of Variation 13.2 % (11.5-14.5); RDW Standard Deviation 46.8 fL (36.4-46.3); White Blood Count 12.74 K/ul (4.8-10.8)
--- NOTE | 2023-10-23 07:51 | XRay Report ---
SINGLE VIEW CHEST CLINICAL HISTORY: Hypoxia FINDINGS: An AP, portable, upright chest radiograph is compared to study dated 10/17/2023. An enteric t ube has been removed. The heart is enlarged noting atherosclerotic calcification of the thoracic aort a. There is pulmonary vascular congestion. There are small pleural effusions with bibasilar consolida tion. No pneumothorax is seen. The skeletal structures are osteopenic. The bony thorax is grossly int act. There are distended and gas-filled loops of bowel seen in the upper abdomen. IMPRESSION: 1. Cardiomegaly with pulmonary vascular congestion. 2. Small pleural effusions with bibasilar consolidation. ACT 112: Negative or not required by law. Electronically signed by: Todd Aleman M.D. 10/23/2023 7:50 AM
--- NOTE | 2023-10-23 08:29 | XRay Report ---
KUB HISTORY: Postoperative ileus. Follow-up. COMPARISON: KUB 10/22/2023. FINDINGS: Midline skin lucrecia again noted. Multiple dilated gas-filled loops of large and small lida l are seen throughout the abdomen. This is similar to the prior study. Suture material within the rig ht side the abdomen. A nasogastric tube is not identified and may have been removed in the interval. No renal calculi. No ureteral calculi. No pneumoperitoneum or pneumatosis. IMPRESSION: No significant change in the multiple dilated gas-filled loops of large and small bowel seen througho ut the abdomen. Again, this favors a postoperative ileus. Underlying bowel obstruction would be diffi cult to exclude. ACT 112: Negative or not required by law. Electronically signed by: Nikita Pineda M.D. 10/23/2023 8:27 AM
[2023-10-23 09:07] LABS: Calcium 8.9 mg/dl (8.6-10.3); Potassium 3.3 mmol/L (3.5-5.1)
[2023-10-23 09:13] LABS: BUN Creatinine Ratio 34.9 (10-20); Creatinine Clr Calc Pharmacy 72.2 ml/min; Est GFR (Non-African American) 80.2 ml/min; Phosphorus 2.4 mg/dl (2.5-4.9)
--- NOTE | 2023-10-23 09:31 | Surgery Progress Note ---
Date of Service October 23, 2023 Assessment & Plan (1) Status post right hemicolectomy: Plan: POD 6 Right hemicolectomy [place] midline CDI no s/s of infection noted Aid reports pt started passing flatus and had a large BM WBC remain elevated however down from yesterday 12 (15) Hospitalist checked UA yesterday negative Required oxygen over night CXR from this AM showing IMPRESSION: 1. Cardiomegaly with pulmonary vascular congestion. 2. Small pleural effusions with bibasilar consolidation. Hospitalist recommends a diuretic KUB from this AM still showing signs of an Ileus, Patient Started on PPN , continue Appreciate hospitalist help in management of care Will continue to monitor as above. pt with post op ileus. continue npo/tpn. pt pulled ngt out. will monitor for emesis Admission and Anticipated Discharge Date Admission Date: October 17, 2023 Subjective Patient in bed, has 1:1 and soft arm restraints remains confused Review of Systems Review of Systems: Confused Physical Exam Physical Exam: Confused No documented fevers Constitutional: no acute distress Respiratory: normal respiratory effort Cardiovascular: Rate/Rhythm: + tachycardic (93) Gastrointestinal (Abdomen): Inspection/Auscultation: + abdominal surgical incision ([place] to midline CDI ); abdomen not distended Percussi on/Palpation: abdomen soft Results & Data Vital Signs (Past 12 Hours) Vital Signs Temp Pulse Resp BP BP Pulse Ox O2 Del Method 10/23/23 07:22 98.1 F 93 H 16 167/80 H 94 Nasal Cannula 10/23/23 01:55 97.9 F 92 H 18 173/73 H 96 Nasal Cannula O2 Flow Rate 10/23/23 07:22 2.5 10/23/23 01:55 2.5 Diagnostic Findings [facility] [place], [place] [phone] XRay Report Patient: ANA MARIA ALMODOVAR Admit Date: 10/17/23 MR#: [id number] Address1: [address] [facility] Acct ID:[id number] Address2: Date: [address] [facility] Zip: [place] [address] Age: 83 Location: 3W Sex: M Room/Bed: [facility] Att Phy: Zenon Laird DO Diagnosis: S/P RIGHT HEMICOLECTOMY Arabella Phy: [facility] Service Date: 10/23/23 Fam Phy: Interpreting Phy: Nikita Pineda MDAdmit Phy: Zenon Laird DO Ordering Phy: Diana Villaseñor cc: ~ KUB HISTORY: Postoperative ileus. Follow-up. COMPARISON: KUB 10/22/2023. FINDINGS: Midline skin lucrecia again noted. Multiple dilated gas-filled loops of large and small bowel are seen throughout the abdomen. This is similar to the prior study. Suture material within the right side the abdomen. A nasogastric tube is not identified and may have been removed in the interval. No renal calculi. No ureteral calculi. No pneumoperitoneum or pneumatosis. IMPRESSION: No significant change in the multiple dilated gas-filled loops of large and small bowel seen throughout the abdomen. Again, this favors a postoperative ileus. Underlying bowel obstruction would be difficult to exclude. ACT 112: Negative or not required by law. Electronically signed by: Nikita Pineda M.D. 10/23/2023 8:27 AM Dictated: 10/23/23825 Transcribed: 10/23/23825 [place], [place] [phone] XRay Report Patient: ANA MARIA ALMODOVAR Admit Date: 10/17/23 MR#: [id number] Address1: [address] [facility] Acct ID:[id number] Address2: Date: [address] [facility] Zip: [place] [address] Age: 83 Location: 3W Sex: M Room/Bed: [facility] Att Phy: Zenon Laird DO Diagnosis: S/P RIGHT HEMICOLECTOMY Arabella Phy: [facility] Service Date: 10/23/23 Fam Phy: Interpreting Phy: Todd Aleman MDAdmit Phy: Zenon Laird DO Ordering Phy: Diana Villaseñor cc: ~ SINGLE VIEW CHEST CLINICAL HISTORY: Hypoxia FINDINGS: An AP, portable, upright chest radiograph is compared to study dated 10/17/2023. An enteric tube has been removed. The heart is enlarged noting atherosclerotic calcification of the thoracic aorta. There is pulmonary vascular congestion. There are small pleural effusions with bibasilar consolidation. No pneumothorax is seen. The skeletal structures are osteopenic. The bony thorax is grossly intact. There are distended and gas-filled loops of bowel seen in the upper abdomen. IMPRESSION: 1. Cardiomegaly with pulmonary vascular congestion. 2. Small pleural effusions with bibasilar consolidation. ACT 112: Negative or not required by law. Electronically signed by: Todd Aleman M.D. 10/23/2023 7:50 AM Dictated: 10/23/23 0748 Transcribed: 10/23/23 0748 Results Complete Blood Count Results: RBC 3.20 M/uL (4.70-6.10) L 10/23/23 WBC 12.74 K/ul (4.8-10.8) H 10/23/23 Hgb 10.6 g/dl (14.0-18.0) L 10/23/23 Hct 30.6 % (42.0-52.0) L 10/23/23 Plt Count 264 K/uL (130-400) 10/23/23 Results CMP Results: Na 142 mmol/L (136-145) 10/23/23 K 3.3 mmol/L (3.5-5.1) L 10/23/23 Cl 107 mmol/L (98-107) 10/23/23 CO2 28 mmol/L (21-32) 10/23/23 Anion Gap 7 (3-11) 10/23/23 BUN 29 mg/dl (6-23) H 10/23/23 Creatinine 0.83 mg/dl (0.6-1.4) 10/23/23 Estimated GFR ( Amer) 93.0 ml/min 10/23/23 Estimated GFR (Non-Af Amer) 80.2 ml/min 10/23/23 BUN/Creatinine Ratio 34.9 (10-20) H 10/23/23 Glu 109 mg/dl (70-99(Fasting)) H 10/23/23 Ca 8.9 mg/dl (8.6-10.3) 10/23/23 Phosphorus Level 2.4 mg/dl (2.5-4.9) L 10/23/23 Total Bilirubin 2.1 mg/dl (0.2-1.0) H 10/22/23 AST 30 U/L (13-39) 10/22/23 ALT 25 U/L (7-52) 10/22/23 Alkaline Phosphatase 41 U/L (34-104) 10/22/23 TP 5.2 gm/dl (6.0-8.3) L 10/22/23 Albumin 3.3 gm/dl (3.4-5.0) L 10/22/23 Globulin 1.9 gm/dl (2.5-4.0) L 10/22/23 Albumin/Globulin Ratio 1.7 (0.9-2) 10/22/23 PG Care Time/CCT Total # of Minutes Spent Total Time Spent with Patient: Total time spent is greater than 50% in coordination of care (as documented) at patient's floor/unit and/or counseling patient: Coding Level of Care Code 80711 Post Operative Follow-Up Diagnoses Status post right hemicolectomy Z90.49
[2023-10-23] MEDS: POTASSIUM PHOSPHATE 12 MMOL in SODIUM CHLORIDE 0.9% 250 ML IV ONE (10:34)
[2023-10-23] MEDS: FUROSEMIDE INJ 20 MG/2 ML VIAL IV ONE (10:38)
--- NOTE | 2023-10-23 13:41 | Hospitalist Progress Note ---
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 Laird on 10/17. EBL 25cc - WBC elevation suspected 2nd to surgery/stress. Afebrile. Zosyn d/c 10/18 Patient initially tolerating clears, but that had increased emesis. Converted to NPO 10/21. Still with emesis and KUB showing volvulus --NG tube placed 10/21 -10/22: NG tube with >1800mL output, to remain in place. Discussed with surgery CORE DROPPER --> plan to start PPN -stop IVF with initiation of PPN reported suprapubic pain 10/22 --> UA negative 10/23 - Patient pulled out NG overnight, large bloddy stool - hypoxic episode now requring O2 - WBC down trending 15-->12, no clear source of infection, pt not on abx - NPO, continue PPN (2) Agitation: Plan: Became agitated/aggressive in PACU and unable to re-direct EKG w/ normal QTC on pre-op EKG -Schedule seroquel 12.5 qHS if able to tolerate PO -Continue zyprexa 2.5mg IM q4 prn Continue flomax (would continue at dc if not taking the terazosin) Restless, pulling at lines - Currently in 2 point restraints with 1:1 present --> remain for safety with PPN and oxygen needs Spoke with daughter 10/22, states this behavior is very abnormal for her father. 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 Denies issues with sundowning at home - UA negative, suspect related to hospital delirium (3) Hypoxia: Plan: Episode overnight 10/22 dropping into the 80s after large BM -CXR with pulmonary vascular congestions, small pleural effusions - O2 goal 94%, wean as able - Will give dose of IV lasix 20mg today (4) Hypertension: Plan: Resume amlodipine - as able with NPO holding lisinopril/HCTZ (suspect dc HCTZ at dc as likely not enough PO intake at baseline) Consider resuming ASA when ok from surgery perspective (5) Memory loss: Plan: continue PO donepezil as able with NPO Frequent orientation, sleep/wake schedules to be encouraged (6) B12 deficiency: Plan: Checked due to reported memory loss B12 LOW@ 177 -- IM replacement ordered and would continue supplementation at dc (7) Hypomagnesemia: Plan: LOW on labs 10/18, ordered IV replacement --> now stable (8) Hiatal hernia: Plan: hx of such, prior on pepcid 20mg PO BID -- placed on pepcid IV BID while inpatient for GI prophylaxis as well --> switched to Protonix drip by primary team given GI bleeding Plan DVT proh: Lovenox Thank you for allowing hospitalist service to participate in the care of Mr Sanchez. Hospitalist service will follow along in AM. Please call with any questions/concerns. Admission and Anticipated Discharge Date Admission Date: October 17, 2023 Subjective patient remains confused/restless denies pain had multiple tarry BM overnight/this morning per nursing Review of Systems Review of Systems: Unobtainable due to cognitive status Physical Exam Physical Exam: General: less restless than prior, VS as above Resp: normal respiratory effort, lungs clear to auscultation CV: RRR, no murmur, Abd: normal bowel sounds, non tender, Extremities: Moves all extremities, no edema Neuro: Alert to self Results & Data Results & Data Vital Signs (Past 12 Hours) Vital Signs Temp Pulse Resp BP BP Pulse Ox O2 Del Method 10/23/23 07:22 36.7 C 93 H 16 167/80 H 94 Nasal Cannula 10/23/23 01:55 36.6 C 92 H 18 173/73 H 96 Nasal Cannula O2 Flow Rate 10/23/23 07:22 2.5 10/23/23 01:55 2.5 Laboratory Results CBC and chemistry reviewed PG Care Time/CCT Total # of Minutes Spent Total Time Spent with Patient: Total time spent is greater than 50% in coordination of care (as documented) at patient's floor/unit and/or counseling patient: Coding Level of Care Code 87696 SUB INP/OBS CARE 3/50MIN Diagnoses Status post right hemicolectomy Z90.49 Agitation R45.1 Hypoxia R09.02 Hypertension I10 Memory loss R41.3 B12 deficiency E53.8 Hypomagnesemia E83.42 Hiatal hernia K44.9
[2023-10-23] MEDS: PERIPHERAL TPN IV SCH (16:43)
[2023-10-23] MEDS: [UNRECOGNIZED DRUG - OTHER] IV SCH (16:43)
[2023-10-23] MEDS: CLINOLIPID 20% IV FAT EMULSION 250 ML IV SCH (16:46)
[2023-10-24] MEDS: SCOPOLAMINE 1 MG TDSY TD SCH (05:40)
[2023-10-24] MEDS: CHECK SCOPOLAMINE PATCH PLACEMENT SCH (07:30)
--- NOTE | 2023-10-24 08:35 | Surgery Progress Note ---
Date of Service October 24, 2023 Assessment & Plan (1) Ileus following gastrointestinal surgery: Plan: ileus appears to be resolving..... can restart clears...? speech/swalling eval first? if we can get him eating we can d/c tpn in near future and start working toward placement. Admission and Anticipated Discharge Date Admission Date: October 17, 2023 Subjective pt seen. still confused. multiple bm's ( bloody) overnight. no emesis. Physical Exam Physical Exam: awake but confused abd: soft. incision looks good. less distended Results & Data Vital Signs (Past 12 Hours) Vital Signs Temp Pulse Resp BP Pulse Ox O2 Del Method O2 Flow Rate 10/24/23 07:01 36.5 C 99 H 18 152/53 H 93 Room Air 10/23/23 22:58 37.1 C 89 20 169/49 H 93 Nasal Cannula 2.5 PG Care Time/CCT Total # of Minutes Spent Total Time Spent with Patient: Total time spent is greater than 50% in coordination of care (as documented) at patient's floor/unit and/or counseling patient: Coding Level of Care Code 08798 Post Operative Follow-Up Diagnoses Ileus following gastrointestinal surgery K91.89; K56.7
[2023-10-24 08:38] LABS: Basophils # (auto) 0.02 K/uL (0.00-0.20); Basophils % (auto) 0.1 %; Eosinophils # (auto) 0.27 K/uL (0.00-0.50); Eosinophils % (auto) 1.9 %; Hematocrit (blood only) 31.4 % (42.0-52.0); Hemoglobin 10.9 g/dl (14.0-18.0); Immature Granulocytes # (auto) 0.07 K/uL (0.01-0.20); Immature Granulocytes % (auto) 0.5 %; Lymphocytes % (auto) 6.4 %; Mean Corpuscular Hgb Conc 34.7 g/dL (32.0-36.0); Mean Corpuscular Volume 95.2 fL (80.0-100.0); Mean Platelet Volume 9.7 fL (9.4-12.4); Monocytes # (auto) 1.26 K/uL (0.11-0.59); Monocytes % (auto) 8.9 %; Neutrophils # (auto) 11.56 K/uL (1.40-6.50); Neutrophils % (auto) 82.2 %; Platelet Count 321 K/uL (130-400); RDW Coefficient of Variation 13.3 % (11.5-14.5); RDW Standard Deviation 46.9 fL (36.4-46.3); White Blood Count 14.08 K/ul (4.8-10.8)
[2023-10-24 08:54] LABS: BUN Creatinine Ratio 29.8 (10-20); Calcium 8.4 mg/dl (8.6-10.3); Creatinine Clr Calc Pharmacy 71.3 ml/min; Est GFR (African American) 92.5 ml/min; Est GFR (Non-African American) 79.8 ml/min; Magnesium 1.9 mg/dl (1.7-2.4); Phosphorus 3.1 mg/dl (2.5-4.9)
[2023-10-24] MEDS: POTASSIUM CHLORIDE / WTR 10 MEQ/100 ML PLCT IV SCH (10:55)
[2023-10-24] MEDS: SODIUM CHLORIDE 0.9% 1000 ML BAG IV STA (11:52)
[2023-10-24] MEDS: SODIUM CHLORIDE 0.9% 1,000 ML IV PRN (12:02)
[2023-10-24] MEDS ORDERED: OLANZapine 10 MG/2.1 ML SDV IM PRN (14:01)
--- NOTE | 2023-10-24 14:03 | Hospitalist Progress Note ---
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 Laird on 10/17. EBL 25cc - WBC elevation suspected 2nd to surgery/stress. Afebrile. Zosyn d/c 10/18 Patient initially tolerating clears, but that had increased emesis. Converted to NPO 10/21. Still with emesis and KUB showing volvulus --NG tube placed 10/21 -10/22: NG tube with >1800mL output, to remain in place. 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 --> plan to start PPN -stop IVF with initiation of PPN reported suprapubic pain 10/22 --> UA negative 10/23 - Patient pulled out NG overnight, large bloody stool - hypoxic episode now requiring O2 - WBC down trending 15-->12, no clear source of infection, pt not on abx - NPO, continue PPN 10/24 - remains on O2, attempted to wean pt dropped to mid 80s - multiple bloody bowel movements, surgery aware - hgb stable - recheck H&H this evening - will attempt to advance diet to clears, speech therapy consulted - pt unable to tolerate, PPN continues - urinary retention, ward placed - WBC increased to [address] Espitia, with increasing WBC and non improved mentation will order CT A/P with contrast (2) Agitation: Plan: Became agitated/aggressive in PACU and unable to re-direct EKG w/ normal QTC on pre-op EKG Continue flomax (would continue at dc if not taking the terazosin) Restless, pulling at lines - Currently in 2 point restraints with 1:1 present --> remain for safety with PPN, ward and oxygen needs Will plan for scheduled medication qHS - seroquel 12.5 mg (first line) + melatonin if able to tolerate PO - Zyprexa 5mg IM if unable to tolerate PO Spoke with daughter 10/22, states this behavior is very abnormal for her father. 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 Denies issues with sundowning at home - UA negative, suspect related to hospital delirium (3) Hypoxia: Plan: Episode overnight 10/22 dropping into the 80s after large BM -CXR with pulmonary vascular congestions, small pleural effusions - O2 goal 94%, wean as able - Given 20mg IV lasix 10/24 - Check RSV/Flu/Covid for completeness (4) Hypertension: Plan: Resume amlodipine - as able with NPO holding lisinopril/HCTZ (suspect dc HCTZ at dc as likely not enough PO intake at baseline) ASA on hold (5) Memory loss: Plan: continue PO donepezil as able with NPO Frequent orientation, sleep/wake schedules to be encouraged - see Agitation above (6) B12 deficiency: Plan: Checked due to reported memory loss B12: 177 - IM replacement ordered and would continue supplementation at dc (7) Hypomagnesemia: Plan: LOW on labs 10/18, ordered IV replacement --> now stable (8) Hiatal hernia: Plan: hx of such, prior on pepcid 20mg PO BID -- placed on pepcid IV BID while inpatient for GI prophylaxis as well --> switched to Protonix drip by primary team given GI bleeding (9) Hypokalemia: Plan: 10/24 K 3.0 --> replaced x3 IV - continue PPN Plan DVT proh: Lovenox, on hold per primary updated at bedside Thank you for allowing hospitalist service to participate in the care of Mr Sanchez. Hospitalist service will follow along in AM. Please call with any questions/concerns. Admission and Anticipated Discharge Date Admission Date: October 17, 2023 Supervising Physician Co-Signing Physician Notes Attending Attestation - Chart reviewed in detail, care plan d/w ANITHA Freeman. I agree w/ the thakur components of her documentation. POD #7 - s/p right-sided hemicolectomy with ileocolic anastomosis 2nd to cecal volvulus. He is overall doing very poorly with severe acute metabolic encephalopathy in setting of advanced dementia. He has persistent leukocytosis, has had bloody BMs, is hypoxic, etc. Prognosis is guarded. Plan - CT a/p to check operative site, r/o other pathology contributing to clinical status. Other plans per Ms Freeman. Fahad Schmid MD Subjective Patient still in restraints and requiring 1:1 Per nursing - 2.5mg zyprexa has not been making a difference Review of Systems Review of Systems: Unobtainable due to cognitive status Physical Exam Physical Exam: General: restless, VS as above Resp: normal respiratory effort, lungs clear anteriorly CV: RRR, no murmur, Abd: normal bowel sounds, non tender, Extremities: Moves all extremities, no edema. 2 point soft restraints Neuro: Alert to self Results & Data Results & Data Vital Signs (Past 12 Hours) Vital Signs Temp Pulse Resp BP Pulse Ox O2 Del Method O2 Flow Rate 10/24/23 10:00 Nasal Cannula 2 10/24/23 07:01 36.5 C 99 H 18 152/53 H 93 Room Air Laboratory Results CBC, chemistry, mag and phos reviewed PG Care Time/CCT Total # of Minutes Spent Total Time Spent with Patient: Total time spent is greater than 50% in coordination of care (as documented) at patient's floor/unit and/or counseling patient: Coding Level of Care Code 77557 SUB INP/OBS CARE 3/50MIN Diagnoses Status post right hemicolectomy Z90.49 Agitation R45.1 Hypoxia R09.02 Hypertension I10 Memory loss R41.3 B12 deficiency E53.8 Hypomagnesemia E83.42 Hiatal hernia K44.9 Hypokalemia E87.6
[2023-10-24] MEDS: PERIPHERAL TPN IV SCH (16:44)
[2023-10-24] MEDS: [UNRECOGNIZED DRUG - OTHER] IV SCH (16:44)
[2023-10-24] MEDS: CLINOLIPID 20% IV FAT EMULSION 250 ML IV SCH (16:46)
[2023-10-24 18:32] LABS: Hematocrit (blood only) 30.7 % (42.0-52.0); Hemoglobin 10.7 g/dl (14.0-18.0)
[2023-10-24 19:09] LABS: Influenza A virus by PCR Negative (Neg); Influenza B virus by PCR Negative (Neg); RSV by PCR Negative (Neg); SARS CoV2 RNA(COVID-19) Ceph NEGATIVE (Negative)
[2023-10-24] MEDS: MELATONIN 3 MG TAB PO SCH (21:16)
[2023-10-24] MEDS: OLANZapine 10 MG/2.1 ML SDV IM SCH (21:21)
[2023-10-25] MEDS: FUROSEMIDE INJ 20 MG/2 ML VIAL IV ONE ×3 (00:34→08:19)
[2023-10-25] MEDS: ALBUT/IPRATROP 3MG/0.5MG NEB 3 ML VIAL NEB STA ×2 (00:37→14:45)
--- NOTE | 2023-10-25 01:23 | Communication Note ---
Date of Service: October 25, 2023 Was called bedside by nursing to check in on patient due to persistent secretions. When examining the patient the patient is having consistent secretions and left lower lobe rhonchi. Is also noted that patient is having some mottling in his legs. Patient is currently full code. He was given Zyprexa prior to having a CT abdomen pelvis done, however this was not able to be done due to patient being uncomfortable and moving around a lot. Ordered stat chest x-ray which showed some improvement but still has left pleural effusion. Had respiratory and they were able to suction some secretions for patient, however this was short lasting. Was given a DuoNeb. Patient was already on scopolamine. Added one dose of Robinul 0.2 mg. ABG showed a pH of 7.54, low CO2, low O2, and high bicarb. Most likely respiratory alkalosis, etiology uncertain at this time, Pro-Gatito negative.. Started on high flow oxygen with humidity. MRSA DNA swab collected, gave a dose of Zosyn due to concerns of aspiration, will refer to day team regarding if continue antibiotic therapy is warranted. Suggest goals of care discussion with family during the day.
[2023-10-25 01:43] LABS: Base Excess ABG 3.1 mEq/L (-9-1.8); HCO3 ABG 25 mmol/L (19-24); Oxygen Saturation ABG 93.6 % (90-95); PCO2 ABG 29 mmHg (35-46); PO2 ABG 61 mmHg (80-95)
[2023-10-25 01:51] LABS: Allen Test Pos (Pos)
[2023-10-25 01:57] LABS: pH ABG 7.54 (7.35-7.45)
[2023-10-25] MEDS: PIPERACILLIN/TAZOBACTAM 4.5 GM in DEXTROSE 5% MINI-B 100 ML IV ONE (01:58)
[2023-10-25] MEDS: GLYCOPYRROLATE 0.2 MG/ML VIAL IV ONE ×2 (01:58→06:04)
--- NOTE | 2023-10-25 06:17 | Communication Note ---
Date of Service: October 25, 2023 [facility] am that patient is becoming increasingly agitated and hypoxic throughout the night also running low-grade fever. I evaluated pt. at bedside within 5 minutes of receiving this call. I discussed with nursing staff and there is concern that patient is aspirating on his secretions. There is been no reported nausea or vomiting. Of note, the patient was advanced to clear liquids yesterday but the patient had little in the way of this for oral intake, and no oral intake on steward/stewardess night. I visited with the patient at the bedside at approximately 5:30 AM. The patient was resting comfortably in bed. On physical exam his blood pressure is 177/89 with a pulse of 105. His respirations are 20 and nonlabored at the present time. Patient is febrile with a temperature of 37.8 and his pulse ox is 88% on 6 L lungs revealed coarse breath sounds with rhonchi. His abdomen is soft and nondistended. The patient has been given nebulizers, Robinul for secretions, and he has been initiated on Zosyn. Chest x-ray was performed that showed potential infiltrative changes at the bases with a potential left pleural effusion. Yesterday, due to increasig WBC a CT scan of abdomen was ordered but has yet to be completed. At the present time the patient does appear comfortable. We will continue to with care as outlined above. I discussed the case with the hospitalist service as well as my attending physician Dr. Espitia.
[2023-10-25 06:41] LABS: Basophils # (auto) 0.02 K/uL (0.00-0.20); Basophils % (auto) 0.1 %; Eosinophils % (auto) 0.7 %; Hematocrit (blood only) 29.6 % (42.0-52.0); Hemoglobin 10.3 g/dl (14.0-18.0); Immature Granulocytes # (auto) 0.11 K/uL (0.01-0.20); Immature Granulocytes % (auto) 0.8 %; Lymphocytes % (auto) 7.5 %; Mean Corpuscular Hemoglobin 32.9 pg (25.0-34.0); Mean Corpuscular Hgb Conc 34.8 g/dL (32.0-36.0); Mean Corpuscular Volume 94.6 fL (80.0-100.0); Mean Platelet Volume 9.8 fL (9.4-12.4); Monocytes # (auto) 1.38 K/uL (0.11-0.59); Monocytes % (auto) 9.5 %; Neutrophils # (auto) 11.87 K/uL (1.40-6.50); Neutrophils % (auto) 81.4 %; Platelet Count 337 K/uL (130-400); RDW Coefficient of Variation 13.2 % (11.5-14.5); RDW Standard Deviation 45.6 fL (36.4-46.3); Red Blood Count 3.13 M/uL (4.70-6.10); White Blood Count 14.58 K/ul (4.8-10.8)
--- NOTE | 2023-10-25 06:57 | XRay Report ---
XR chest 1V portable CLINICAL HISTORY: LLL rhonchi COMPARISON STUDY: Chest radiograph October 23, 2023. FINDINGS: Low lung volumes are again noted. There is no pneumothorax or pleural effusion. Cardiomedia stinal silhouette is stable. Perihilar and bibasilar opacities have slightly improved. Pulmonary vasc ular congestion has improved. IMPRESSION: 1. Slight improvement in pulmonary vascular congestion. 2. Interval decrease in perihilar and bibasilar opacities which could reflect an infectious process o r pulmonary edema. ACT 112: Negative or not required by law. Electronically signed by: Haja Rodriguez M.D. 10/25/2023 6:56 AM
[2023-10-25 07:00] LABS: BUN Creatinine Ratio 28.4 (10-20); Calcium 8.2 mg/dl (8.6-10.3); Creatinine Clr Calc Pharmacy 64.8 ml/min; Est GFR (African American) 90.8 ml/min; Est GFR (Non-African American) 78.3 ml/min; Magnesium 1.9 mg/dl (1.7-2.4); Phosphorus 3.5 mg/dl (2.5-4.9); Potassium 3.2 mmol/L (3.5-5.1)
[2023-10-25] MEDS ORDERED: GLYCOPYRROLATE 0.2 MG/ML VIAL IV PRN ×2 (08:13→15:15)
[2023-10-25] MEDS ORDERED: HALOPERIDOL LACTATE 5 MG/ML 1 ML VIAL IM PRN (08:15)
[2023-10-25] MEDS: MoRPHine SULFATE 2 MG/ML CARP IV PRN (08:27)
[2023-10-25] MEDS: PIPERACILLIN/TAZOBACTAM 4.5 GM in DEXTROSE 5% MINI-B 100 ML IV SCH (09:35)
--- NOTE | 2023-10-25 09:43 | Palliative Care Consultation ---
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 They did this to accommodate his changing memory issues, simplify life and have more quality time together before illnesses worsened. has hx prior strokes and early dementia changes, she struggles with short and oysterman recall and repeats herself. They moved into a small home near [facility] to be conveniently close to amenities and walked everyday. and then daughter are POA. We discussed his overall general health, chronic diseases and complications from surgery. We had a very exhaustive, detailed and often repetitive discussion about his post operative decline in setting of his dementia and now progressive resp decline and complications. We spoke at length about dementia and how it can be exacerbated under conditions of stress and complicate recovery mansi bc he is unable to follow commands, clear his secretions etc. We reviewed that all chronic/progressive disease has a declining trajectory over time where facets of patient self-identity and independence are lost. Every acute event leads to a further decline, resulting- many times, in a new baseline. Advised that the greatest priority is to determine what matters most to pt, then family and to develop a plan of care that is aligned with those priorities. We reviewed the following facts about dementia: * Dementia is a terminal illness. Aggressive medical treatment for residents with advanced dementia is often inappropriate for medical reasons, has a low rate of success, and can have negative outcomes that hasten functional decline and . ([place] [employer] Ethics Committee and Clinical Practice and Models of Care Committee. J Am Geriatr Soc. 2014 Aug;62(8):1590-3 and Ernie SL, Javier JM, Paz SC, Chalo V. A national study of the location of for older persons with dementia. J Am Geriatr Soc 2005; 53(2):299-305 .) * Tube feeding in residents with advanced dementia does not increase survival. It does not prevent aspiration pneumonia, malnutrition or pressure ulcers. It does not reduce the risk of infections or improve functional status or comfort of the patient. (from: Priyank LM, Kandace T Percutaneous endoscopic gastrostomy does not prolong survival in patients with dementia. Arch Outpatient Services Director Med 2003; 163(11):5998-8336 AND Smita FOSTER, Yumiko MELANIE, Silvano J, Chris S, Aditya RS. High short-term mortality in hospitalized patients with advanced dementia - Lack of benefit of tube feeding. Arch Outpatient Services Director Med 2001; 161(4):594- 599.) * Simple strategies involving hands-on care by well-trained staff such as massage, oral hygiene, changes in diet, and hand-feeding -- can prevent i nfection and manage feeding problems without resort to tube-feeding. * Tube feeding does not prevent aspiration pneumonia and might actually increase its incidence, and does not prevent the consequences of malnutrition * Hand feeding can be provided until the beginning of the dying process when all physiological processes shut down, note that cognitively intact cancer patients indicate that dying residents do not feel hunger and thirst. * Voluntary refusal of food and liquids is often initiated by hospice patients and does not result in discomfort * The majority of older Americans whose underlying cause of is attributable to dementia on their certificate in nursing homes. State-level factors, including the availability of hospital and alf beds and the age of decedents in the population, explain, in part, the wide [id number] variability in the proportion of dementia-related deaths occurring in the hospital. * Older adults with dementia frequently receive acute care in their last year of life although Hospice care was more common for home/JASBIR residents. Overall time in hospice remains short due to the underutilization of the hospice benefit for terminal dementia (Renu MM, Khadra JM, Mejia KM, Jean Pierre DE, Nikko PY. Dementia Care in the Last Year of Life: Experiences in a Community Practice and in Retirement Facilities. J Palliat Care. 2022;38(2):135-142. doi:10.1177/[id number]) * Home Hospice is a valuable option for terminal dementia who desire to have peaceful EOL at home. Home hospice care for advanced dementia can improve symptom management and caregiver satisfaction, while decreasing caregiver burden, preventing hospitalizations and discontinuing unnecessary medications (Stephanie ARANDA, Roque R, Gurpreet G, et al. Home hospice for older people with advanced dementia: a fuel pilot engineer project [published correction appears in Isr J Health Policy Res. 2019 Mar 09;8(1):56]. Isr J Health Policy Res. 2019;8(1):42. Published 2018January 12. doi:10.1186/i90140-431-4727-u) * If the plan if for SNF placement, I recommend hospice at SNF: Hospice is a valuable service for persons with advanced dementia, particularly in management of pain, continuous involvement of the primary physician, and avoidance of hospitalization. Social support provided to caregivers is also important given their high levels of depressive symptoms and anxiety. The goal of care for residents with advanced dementia is primarily maintenance of function and patient should not be transferred to an acute care setting b ecause hospitalization results in decline of functional abilities that do not recover after discharge back into alf. If this is desired, then Care Mgt follow up is needed to determine if pt is eligible for hospice at SNF/deferred to CM and primary team. Daughter and son in law share concern that in spite of escalating and ongoing support, pt is declining. We discussed this is a sign he will not recover the way we had hoped and his body is shutting down. I advised them, gently, he is transitioning from a process of living to a process of dying. states pt would never want to prolong suffering or live in a compromised/dependent way. 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 He would never want to live a constrained, limited lifestyle without freedom and the ability to enjoy his activities and social engagements. We discussed a plan of care more focused on his comfort: Morphine []mg IV q30min prn air hunger/RR>20 and Morphine []mg IV q1h prn severe air hunger unrelieved by earlier dose. Hold for somnolence or RR < 12. If frequent use, would recommend initiating an infusion. If nephropathic, use D ilaudid 1-2mg IV q30min prn dyspnea, air hunger, pain. Keep a fan on and circulating air: movement of air across the face aids in the relief of dyspnea and air hunger along with the use of opioids for relief of cancer related and terminal dyspnea. Agitation/Nausea/Vomiting: Haldol Intensol 0.5 to 1mg PO Q4h prn nausea, agitation, hallucination Anxiety: Ativan IV 0.5 -1mg PO q4h prn, if no relief switch to IV formulation Patient is transitioning from a process of living to a process of dying. Patient/family are well aware of this, and they have elected/desire a plan of care focused on comfort/hospice and symptom management. Please stop non essential/non comfort focused meds and interventions Please stop monitors/liberate and free the patient of leads, monitor alarms, etc; watch the pt and assess for comfort; vital signs will not be "normal" during the dying process, therefore constant vigilance of the same will not aid in the goal of assuring comfort. * Robinul elixir 0.5mg PO q4h prn moist secretions - avoid trans derm scop unless you are using Robinul very frequently as this can lead to excessive oral dryness and cause discomfort. Allow pt to take PO as tolerated for pleasure and comfort; no dietary restriction or limitations. Keep an oscillating fan available to provide circulating air movement across the face to assist in the relief of dyspnea. and family agree to plan of comfort. de escalate support stop OLE and IVH improve resp distress and work to free him from restraints and allow him to be medicated for comfort, relief of agitation, resp distress etc. (7) Palliative care by specialist: Met with family. Provided overview of Palliative Medicine, a subspecialty that provides specialized medical care for people living with a serious illness by offering a focus on quality of life. Palliative Medicine is often conflated with hospice: I advised patient/family that Palliative and hospice can be partners but we are not the same. It is important to understand the difference so that we may be informed, and not afraid. Palliative Medicine works to improve QOL through reduction of symptom burden/more control over their illness, for both the patient and family. Palliative medicine clinicians are board certified, specially-trained and another member of the patient's medical care team. We often provide an extra layer of support because our care is based on the needs of the patient, not the prognosis; as such, it's appropriate at any age/advancing stage of a serious illness and can be provided along with curative treatment. Palliative Medicine clinicians are also trained in advanced communication methodologies, to facilitate complex discussions about advanced illness planning, which are needed to help assure that the treatment choices match the patient's goals, aka delivering Goal Concordant care. Finally, we discussed that hospice is a visiting nurse service that focuses on care de livered at the very end of life for patients with terminal illness, with life expectancy less than 6 month. 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 Please don't hesitate to call or page with any additional concerns. Dr. Aliza Ramírez DNP Director, Palliative Care History of Present Illness Reason for Consultation: On 10/25/23 @ 08:07 Olinda Freeman Wrote To Aliza Ramírez. goals of care discussion, family agreeable Attending Physician: Zenon Laird, , FACS History of Present Illness 83 yo male with PMH of dementia, HTN, confusion, hiatal hernia , chest pain, colitis, that presented to the [facility] ER today with c/o abdominal pain that has been on-going for the last few weeks. The pain became worse today which is what prompted him to seek care. He reports pain is currently a 2/10 in upper abdomen, denies nausea, vomiting, diarrhea change in bowel habits. CT revealed: 1. 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 There is also dilation of the distal ileum with interloop edema and small volume of abdominal pelvic ascites. 2. Nonspecific borderline enlarged lymph nodes of the right lower quadrant mesentery. 3. No pneumoperitoneum. 4. Prostatomegaly with evidence of chronic outlet obstruction. 5. Cholecystectomy with biliary ductal dilation which may be postsurgical. This could be correlated with laboratory analysis. Allergies Allergy/AdvReac Type Severity Reaction Status Date / Time hydromorphone AdvReac Intermediate GI SYMPTOMS Verified 10/17/23 11:48 Home Medications Medication Instructions Recorded Confirmed Type amlodipine 10 mg tablet 10 mg PO DAILY 02/15/21 10/17/23 History aspirin 81 mg tablet,delayed 0 mg PO DAILY 02/15/21 10/17/23 History release (Erin Low Dose Aspirin) cholecalciferol (vitamin D3) 25 0 mcg PO DAILY 02/15/21 10/17/23 History mcg (1,000 unit) tablet (Vitamin D3) lisinopril 20 1 tab PO DAILY 02/15/21 10/17/23 History mg-hydrochlorothiazide 25 mg tablet donepezil 10 mg tablet 10 mg PO HS 10/17/23 10/17/23 History food supplemt, lactose-reduced 1 ea PO DAILY 10/17/23 10/17/23 History (Ensure oral liquid) terazosin 10 mg capsule 10 mg PO HS 10/17/23 10/17/23 History Patient History Medical History (Updated 10/26/23 @ 01:34 by Aliza Ramírez DNP) Dementia with behavioral disturbance Agitation due to dementia Palliative care by specialist Discussion about advance care planning held with family member Weakness generalized Terminal respiratory secretions Dyspnea and respiratory abnormalities Acute confusion Hiatal hernia Chest pain Colitis Hypertension Surgical History (Updated 10/19/23 @ 13:16 by Holger Espitia DO) H/O right hemicolectomy (10/17/23) Right Hemicolectomy with ileocoloc anastamosis(Not Applicable) - Zenon Laird DO, FACS History of appendectomy History of tonsillectomy Social History Smoking Status: Never smoker Tobacco Type: Cigarettes Hx Alcohol Use: Yes Alcohol type: hard liquor Hx Substance Use: No Preferred Language: Indonesian Communication Ability: Impaired Sharepoint Consultant Required: No Beliefs That Will Affect Care: None Current Living Situation: Spouse Feels Safe at Home: Yes Assistive Devices: Cane Review of Systems Review of Systems: Unobtainable due to cognitive status Physical Exam Physical Exam: agitated, chronically ill appearing male in distress with heavy secretions, bronchitic cough, inc resp effort, agitation unable to provide HPI bitemp wasting, perrla MM wet neck supple, no stridor inc effort, +cough, rhonchi throughout, +use of accessory muscles and abd breathing noted tachy s1s2, +JVD abd distended, +dressing generalized weakness bilat wrist restraints skin pale, diaphoretic unable to follow commands Results & Data Vital Signs (Past 12 Hours) Vital Signs Temp Pulse Resp BP Pulse Ox O2 Del Method O2 Flow Rate 10/25/23 07:13 36.6 C 115 H 22 162/70 H 92 High Flow Nasal Cannula 8 10/25/23 05:00 37.8 C H 105 H 24 88 L High Flow Nasal Cannula 6 10/25/23 03:14 37.8 C H 10/25/23 00:38 106 H 24 90 Nasal Cannula 2 10/25/23 00:16 37.9 C H Laboratory Results data reviewed Diagnostic Findings data reviewed PG Care Time/CCT Total # of Minutes Spent Total Time Spent: 130 Total Time Spent with Patient: Total time spent is greater than 50% in coordination of care (as documented) at patient's floor/unit and/or counseling patient: I spent 130 minutes overall addressing this very complex case: 20 min in medical data review/discussion with referring provider(s) and/or preparation for the visit 25 min in direct interaction with the patient/exam 45 min in Advance Care Planning/Goals of Care discussions as detailed above in note (must be >16min) 20 min in subsequent review and synthesis of assessment and plan 20 min communicating with other providers regarding the patient's case: primary team Advanced Care Planning 03007 Advanced Care Planning 30 Min 23219 Advanced Care Planning Additional 30 [place] [address] IN/OBS CONSULT LVL 5,80M Patient Type New History Comprehensive Exam Comprehensive Medical Decision Making High Complexity Diagnoses Dyspnea and respiratory abnormalities R06.00; R06.89 Agitation due to dementia F03.911 Terminal respiratory secretions R09.89 Dementia with behavioral disturbance F03.918 Weakness generalized R53.1 Discussion about advance care planning held with family member Z71.0 Palliative care by specialist Z51.5 Ileus following gastrointestinal surgery K91.89; K56.7 Dementia F03.90 Cecal volvulus K56.2 Additional Codes Advanced Care Planning - 32187 Advanced Care Planning 30 Min: 03161 Advanced Care Planning 30 Min ([id number]) Advanced Care Planning - 72600 Advanced Care Planning Additional 30 Min: 77591 Advanced Care Planning Additional 30 Min ([id number])
--- NOTE | 2023-10-25 13:38 | Surgery Progress Note ---
Date of Service October 25, 2023 Assessment & Plan (1) Cecal volvulus: Plan: Patient is s/p ex lap and R hemicolectomy for cecal volvulus Pt appears unwell. overnight patient with worsening respiratory status, currently on high flow nasal cannula. + cough and coarse breath sounds CXR obtained slight improvement in pulmonary vascular congestion with interval decrease in perihilar and bibasilar opacities which could reflect an infectious process or pulmonary edema abdomen is soft, non distended, appears non tender, incisions c/d/i with lucrecia and no signs of infection palliative has been consulted today for goals of care we appreciate the hospitalists team assisting us with the care of this patient as above. continues to deteriorate. unable to coopertate with ct scan. the severe dementia is really limiting his ability to improve. Palliative care consulted which I agree with. nothing to add at this point surgically. (2) Hypoxia: Admission and Anticipated Discharge Date Admission Date: October 17, 2023 Subjective Patient in bed w/ restraints. unable to give reliable subjective history at this time Physical Exam Physical Exam: in bed, + restraints, eyes closed Respiratory: + high flow, + cough and + congestion Gastrointestinal (Abdomen): Inspection/Auscultation: + abdominal surgical incision (c/d/i with midline lucrecia, no signs of infection); abdomen not distended Percussion/Palpation: abdomen soft; abdomen nontender (does not appear to be tender to palpation) Results & Data Vital Signs (Past 12 Hours) Vital Signs Temp Pulse Resp BP Pulse Ox O2 Del Method O2 Flow Rate 10/25/23 10:34 High Flow Nasal Cannula 10/25/23 07:13 97.9 F 115 H 22 162/70 H 92 High Flow Nasal Cannula 8 10/25/23 05:00 100.0 F H 105 H 24 88 L High Flow Nasal Cannula 6 10/25/23 03:14 100.1 F H PG Care Time/CCT Total # of Minutes Spent Total Time Spent with Patient: Total time spent is greater than 50% in coordination of care (as documented) at patient's floor/unit and/or counseling patient: Coding Level of Care Code 75471 Post Operative Follow-Up Diagnoses Cecal volvulus K56.2 Hypoxia R09.02
--- NOTE | 2023-10-25 14:46 | Hospitalist Progress Note ---
Date of Service October 25, 2023 Assessment & Plan (1) Comfort measures only status: Plan: Decision made by family 10/25 to convert to comfort measures only - Palliative care following - continue scopolamine - zyprexa prn - diluadid prn - lorazepam prn - tawny kwong (2) Status post right hemicolectomy: Plan: Admitted for abdominal pain and found to have cecal volvulus on CTAP General surgery primary, Dr Laird - s/p Right Hemicolectomy with [id number] functional end-to-end ileocolic anastomosis with Dr. Laird on 10/17. EBL 25cc Patient did not make much progress post operatively, with decline overnight 10/24-10/25. Now transitioned to comfort measures only. Plan Dispo: continued inpatient stay, comfort measures only Thank you for allowing hospitalist service to participate in the care of Mr Sanchez. Hospitalist service will follow along in AM. Please call with any questions/concerns. Admission and Anticipated Discharge Date Admission Date: October 17, 2023 Supervising Physician Co-Signing Physician Notes Attending Attestation - Chart reviewed in detail, care plan d/w ANITHA Freeman. I agree w/ the thakur components of her documentation. POD #8 - s/p right-sided hemicolectomy with ileocolic anastomosis 2nd to cecal volvulus. Overnight was febrile. Unable to complete CT a/p due to severe agitation - this is despite antipsychotics given. This am very restless, having a difficult time with secretions, severe cough, altered, etc. Exam - gen - looks very ill, coughing, choking on his own secretions; altered - did not follow commands neck - no obvious JVD mouth - MM dry heart - tachy, s1 s2 lungs - b/l crackles, b/l course BS, tachypnea, severe cough, subtle retractions abd - BS+, no obvious tenderness, dressings intact ext - cool to touch, pulses 1-2+ b/l psych - a/o x 0 A/P: 1. cecal volvulus s/p right-sided hemicolectomy, POD #8 2. ongoing acute metabolic encephalopathy 3. acute hypoxic respiratory failure either 2nd to pneumonia +/- acute CHF 4. suspected aspiration Immediately following my visit I ordered duoneb x 1. Previously was given lasix for possible pulm edema. Zosyn for suspected pneumonia. Pt's prognosis is very, very poor. Family is coming to hospital to discuss goals of care. Would recommend transition to comfort care pathway at this time. Between my bedside visit & assessment along with multiple visits by Ms Freeman, discussions with family, discussions with surgery & other team members - total time on care activities today about 80 minutes. Fahad Schmid MD Subjective Patient with significant decline in overall status overnight. Early This morning I contacted the daughter to let her know this and recommend that she come to the hospital so we could have a discussion about the goals of care. when I evaluated the patient late morning, he opens his eyes to his name but does not speak. 1430 - was notified by RN that family was here, went down to bedside and discussed with family regarding Bautista's current state and likely trajectory. Discussed making him comfortable versus continuing aggressive measures. with baseline dementia, repeats multiple questions as it has a difficult time grasping the current complexity of his illness. Palliative then arrived at bedside and is going to continue to discuss with the family. Family has decided on comfort measures only Review of Systems Review of Systems: Unobtainable due to cognitive status Physical Exam Physical Exam: Exam before determining comfort measures only General: restless, VS as above Resp: high flow nasal canula in place, increased work of breath with wet cough, CV: RRR, no murmur, Abd: normal bowel sounds, non tender, Extremities: Moves all extremities, no edema. 2 point soft restraints Neuro: less alert than previous, opens eyes to stimuli Results & Data Results & Data Vital Signs (Past 12 Hours) Vital Signs Temp Pulse Resp BP Pulse Ox O2 Del Method O2 Flow Rate 10/25/23 10:34 High Flow Nasal Cannula 10/25/23 07:13 36.6 C 115 H 22 162/70 H 92 High Flow Nasal Cannula 8 10/25/23 05:00 37.8 C H 105 H 24 88 L High Flow Nasal Cannula 6 10/25/23 03:14 37.8 C H Laboratory Results CBC and chemistry reviewed PG Care Time/CCT Total # of Minutes Spent Total Time Spent with Patient: Total time spent is greater than 50% in coordination of care (as documented) at patient's floor/unit and/or counseling patient: 80 minutes spent with chart review discussions with primary team and consultants, nursing and prolonged discussion with family Prolonged Care Time Prolonged Care Time: Yes Total Prolonged Care Time: 80 Coding Level of Care Code 97521 SUB INP/OBS CARE 3/50MIN (25 - SIGNIFICANT, SEPARATELY IDENTIFIABLE ) Diagnoses Comfort measures only status Z51.5 Status post right hemicolectomy Z90.49 Additional Codes Prolonged Care Time - Prolonged Care Time: Yes ([id number])
[2023-10-25] MEDS ORDERED: LORazepam 1 MG in SYRINGE 0.25 ML IV PRN (15:15)
[2023-10-25] MEDS ORDERED: OLANZapine 10 MG/2.1 ML SDV IM PRN (15:54)
[2023-10-25] MEDS: LORazepam 1 MG in SYRINGE 0.5 ML IV PRN (16:23)
[2023-10-25] MEDS: GLYCOPYRROLATE 0.2 MG/ML VIAL IV PRN (16:31)
--- NOTE | 2023-10-26 02:08 | Palliative Family Discussion ---
Date of Service October 26, 2023 Patient Directed Conference Time of Meetin-315pm Participants: Aliza Ramírez DNP Patient participation: unable/dementia, agitation Patient Support System: , dtr, son in law Other Healthcare Provider Participation: None Meeting Location: conference room Advanced Directive available:no A family meeting was held for ANA MARIA ALMODOVAR. This meeting was necessary for determining the appropriate course of treatment. 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 They did this to accommodate his changing memory issues, simplify life and have more quality time together before illnesses worsened. 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 They moved into a small home near [facility] to be conveniently close to amenities and walked everyday. and then daughter are POA. We discussed his overall general health, chronic diseases and complications from surgery. We had a very exhaustive, detailed and often repetitive discussion about his post operative decline in setting of his dementia and now progressive resp decline and complications. We spoke at length about dementia and how it can be exacerbated under conditions of stress and complicate recovery mansi bc he is unable to follow commands, clear his secretions etc. We reviewed that all chronic/progressive disease has a declining trajectory over time where facets of patient self-identity and independence are lost. Every acute event leads to a further decline, resulting- many times, in a new ba seline. Advised that the greatest priority is to determine what matters most to pt, then family and to develop a plan of care that is aligned with those priorities. We reviewed the following facts about dementia: * Dementia is a terminal illness. Aggressive medical treatment for residents with advanced dementia is often inappropriate for medical reasons, has a low rate of success, and can have negative outcomes that hasten functional decline and . ([place] [employer] Ethics Committee and Clinical Practi ce and Models of Care Committee. J Am Geriatr Soc. 2014 Apr;62(8):1590-3 and Ernie SL, Reagano JM, Paz SC, Chalo V. A national study of the location of for older persons with dementia. J Am Geriatr Soc 2005; 53(2):299-305.) * Tube feeding in residents with advanced dementia does not increase survival. It does not prevent aspiration pneumonia, malnutrition or pressure ulcers. It does not reduce the risk of infections or improve functional status or comfort of the patient. (from: Kandace Yost LM Percutaneous endoscopic gastrostomy does not prolong survival in patients with dementia. Arch Trimmer Hand Med 2003; 163(11):0860-2457 AND Smita DE, Yumiko MELANIE, Silvano J, Chris S, Aditya RS. High short-term mortality in hospitalized patients with advanced dementia - Lack of benefit of tube feeding. Arch Trimmer Hand Med 2001; 161(4):594- 599.) * Simple strategies involving hands-on care by well-trained staff such as massage, oral hygiene, changes in diet, and hand-feeding -- can prevent infection and manage feeding problems without resort to tube-feeding. * Tube feeding does not prevent aspiration pneumonia and might actually increase its incidence, and does not prevent the consequences of malnutrition * Hand feeding can be provided until the beginning of the dying process when all physiological processes shut down, note that cognitively intact cancer patients indicate that dying residents do not feel hunger and thirst. * Voluntary refusal of food and liquids is often initiated by hospice patients and does not result in discomfort * The majority of older Americans whose underlying cause of is attributable to dementia on their certificate in nursing homes. State-level factors, including the availability of hospital and residential beds and the age of decedents in the population, explain, in part, the wide [id number] variability in the proportion of dementia-related deaths occurring in the hospital. * Older adults with dementia frequently receive acute care in their last year of life although Hospice care was more common for home/DETENTION residents. Overall time in hospice remains short due to the underutilization of the hospice b enefit for terminal dementia (Renu MM, Khadra JM, Mejia KM, Jean Pierre DE, Nikko PY. Dementia Care in the Last Year of Life: Experiences in a Community Practice and in Shelter Facilities. J Palliat Care. 202;38(2):135-142. doi:10.1177/[id number]) * Home Hospice is a valuable option for terminal dementia who desire to have pea ceful EOL at home. Home hospice care for advanced dementia can improve symptom management and caregiver satisfaction, while decreasing caregiver burden, preventing hospitalizations and discontinuing unnecessary medications ( Stephanie ARANDA, Roque R, Gurpreet G, et al. Home hospice for older people with advanced dementia: a air force pilot project [published correction appears in Isr J Health Policy Res. 2019 Mar 09;8(1):56]. Isr J Health Policy Res. 2019;8(1):42. Published 2018January 12. doi:10.1186/[id number]-u) * If the plan if for SNF placement, I recommend hospice at SNF: Hospice is a valuable service for persons with advanced dementia, particularly in management of pain, continuous involvement of the primary physician, and avoidance of hospitalization. Social support provided to caregivers is also important given their high levels of depressive symptoms and anxiety. The goal of care for residents with advanced dementia is primarily maintenance of function and patient should not be transferred to an acute care setting because hospitalization results in decline of functional abilities that do not recover after discharge back into residential. If this is desired, then Care Mgt follow up is needed to determine if pt is eligible for hospice at SNF/deferred to CM and primary team. Daughter and son in law share concern that in spite of escalating and ongoing support, pt is declining. We discussed this is a sign he will not recover the way we had hoped and his body is shutting down. I advised them, gently, he is transitioning from a process of living to a process of dying. states pt would never want to prolong suffering or live in a compromised/dependent way. 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 He would never want to live a constrained, limited lifestyle without freedom and the ability to enjoy his activities and social engagements. We discussed a plan of care more focused on his comfort: Opioid for pain/dyspnea Keep a fan on and circulating air: movement of air across the face aids in the relief of dyspnea and air hunger along with the use of opioids for relief of cancer related and terminal dyspnea. Agitation/Nausea/Vomiting: Haldol Intensol 0.5 to 1mg PO Q4h prn nausea, agitation, hallucination Anxiety: Ativan IV 0.5 -1mg PO q4h prn, if no relief switch to IV formulation Patient is transitioning from a process of living to a process of dying. Patient/family are well aware of this, and they have elected/desire a plan of care focused on comfort/hospice and symptom management. Please stop non essential/non comfort focused meds and interventions Please stop monitors/liberate and free the patient of leads, monitor alarms, etc; watch the pt and assess for comfort; vital signs will not be "normal" during the dying process, therefore constant vigilance of the same will not aid in the goal of assuring comfort. * Robinul elixir 0.5mg PO q4h prn moist secretions - avoid trans derm scop unless you are using Robinul very frequently as this can lead to excessive oral dryness and cause discomfort. Allow pt to take PO as tolerated for pleasure and comfort; no dietary restriction or limitations. Keep an oscillating fan available to provide circulating air movement across the face to assist in the relief of dyspnea. and family agree to plan of comfort. de escalate support stop OLE and IVH improve resp distress and work to free him from restraints and allow him to be medicated for comfort, relief of agitation, resp distress etc. Other Content of Meetin. Opportunity given for participants to speak and ask questions. 2. Participants were assured of attention to patient comfort. 3. Reassurance provided. 4. 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 They did this to accommodate his changing memory issues, simplify life and have more quality time together before illnesses worsened. has hx prior strokes and early dementia changes, she struggles with short and residential recall and repeats herself. They moved into a small home near [facility] to be conveniently close to amenities and walked everyday. and then daughter are POA. We discussed his overall general health, chronic diseases and complications from surgery. We had a very exhaustive, detailed and often repetitive discussion about his post operative decline in setting of his dementia and now progressive resp decline and complications. We spoke at length about dementia and how it can be exacerbated under conditions of stress and complicate recovery mansi bc he is unable to follow commands, clear his secretions etc. We reviewed that all chronic/progressive disease has a declining trajectory over time where facets of patient self-identity and independence are lost. Every acute event leads to a further decline, resulting- many times, in a new baseline. Advised that the greatest priority is to determine what matters most to pt, then family and to develop a plan of care that is aligned with those priorities. We reviewed the following facts about dementia: Dementia is a terminal illness. Aggressive medical treatment for residents with advanced dementia is often inappropriate for medical reasons, has a low rate of success, and can have negative outcomes that hasten functional decline and . ([place] [employer] Ethics Committee and Clinical Practice and Models of Care Committee. J Am Geriatr Soc. 2014 Apr;62(8):1590-3 and Ernie SL, Reagano JM, Paz SC, Chalo V. A national study of the location of for older persons with dementia. J Am Geriatr Soc 2005; 53(2):299-305.) Tube feeding in residents with advanced dementia does not increase survival. It does not prevent aspiration pneumonia, malnutrition or pressure ulcers. It does not reduce the risk of infections or improve functional status or comfort of the patient. (from: Priyank SIMPSON, Kandace T Percutaneous endoscopic gastrostomy does not prolong survival in patients with dementia. Arch Trimmer Hand Med 2003; 163(11):1351- 1353 AND Smita DE, Yumiko MELANIE, Silvano J, Chris S, Aditya RS. High short-term mortality in hospitalized patients with advanced dementia - Lack of benefit of tube feeding. Arch Trimmer Hand Med 2001; 161(4):594-599.) Simple strategies involving hands-on care by well-trained staff such as massage, oral hygiene, changes in diet, and hand-feeding -- can prevent infection and manage feeding problems without resort to tube-feeding. Tube feeding does not prevent aspiration pneumonia and might actually increase its incidence, and does not prevent the consequences of malnutrition Hand feeding can be provided until the beginning of the dying process when all physiological processes shut down, note that cognitively intact cancer patients indicate that dying residents do not feel hunger and thirst. Voluntary refusal of food and liquids is often initiated by hospice patients and does not result in discomfort The majority of older Americans whose underlying cause of is attributable to dementia on their certificate in nursing homes. State-level factors, including the availability of hospital and residential beds and the age of decedents in the population, explain, in part, the wide [id number] variability in the proportion of dementia-related deaths occurring in the hospital. Older adults with dementia frequently receive acute care in their last year of life although Hospice care was more common for home/JASBIR residents. Overall time in hospice remains short due to the underutilization of the hospice benefit for terminal dementia (Renu MM, Khadra JM, Mejia KM, Jean Pierre DE, Nikko PY. Dementia Care in the Last Year of Life: Experiences in a Community Practice and in Shelter Facilities. J Palliat Care. 2022;38(2):135-142. doi:10.1177/[id number]) Home Hospice is a valuable option for terminal dementia who desire to have peaceful EOL at home. Home hospice care for advanced dementia can improve symptom management and caregiver satisfaction, while decreasing caregiver burden , preventing hospitalizations and discontinuing unnecessary medications (Stephanie ARANDA, Roque R, Gurpreet G, et al. Home hospice for older people with advanced dementia: a air force pilot project [published correction appears in Isr J Health Policy Res. 2019 Mar 09;8(1):56]. Isr J Health Policy Res. 2019;8(1):42. Published 2018January 12. doi:10.1186/[id number]-w) If the plan if for SNF placement, I recommend hospice at SNF: Hospice is a valuable service for persons with advanced dementia, particularly in management of pain, continuous involvement of the primary physician, and avoidance of hospitalization. Social support provided to caregivers is also important given their high levels of depressive symptoms and anxiety. The goal of care for residents with advanced dementia is primarily maintenance of function and patient should not be transferred to an acute care setting because hospitalization results in decline of functional abilities that do not recover after discharge back into residential. If this is desired, then Care Mgt follow up is needed to determine if pt is eligible for hospice at SNF/deferred to CM and primary team. Daughter and son in law share concern that in spite of escalating and ongoing support, pt is declining. We discussed this is a sign he will not recover the way we had hoped and his body is shutting down. I advised them, gently, he is transitioning from a process of living to a process of dying. states pt would never want to prolong suffering or live in a compromised/dependent way. 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 He would never want to live a constrained, limited lifestyle without freedom and the ability to enjoy his activities and social engagements. We discussed a plan of care more focused on his comfort: Morphine []mg IV q30min prn air hunger/RR>20 and Morphine []mg IV q1h prn severe air hunger unrelieved by earlier dose. Hold for somnolence or RR < 12. If frequent use, would recommend initiating an infusion. If nephropathic, use Dilaudid 1-2mg IV q30min prn dyspnea, air hunger, pain. Keep a fan on and circulating air: movement of air across the face aids in the relief of dyspnea and air hunger along with the use of opioids for relief of cancer related and terminal dyspnea. Agitation/Nausea/Vomiting: Haldol Intensol 0.5 to 1mg PO Q4h prn nausea, agita tion, hallucination Anxiety: Ativan IV 0.5 -1mg PO q4h prn, if no relief switch to IV formulation Patient is transitioning from a process of living to a process of dying. Patient/family are well aware of this, and they have elected/desire a plan of care focused on comfort/hospice and symptom management. Please stop non essential/non comfort focused meds and interventions Please stop monitors/liberate and free the patient of leads, monitor alarms, etc; watch the pt and assess for comfort; vital signs will not be "normal" during the dying process, therefore constant vigilance of the same will not aid in the goal of assuring comfort. Robinul elixir 0.5mg PO q4h prn moist secretions - avoid trans derm scop unless you are using Robinul very frequently as this can lead to excessive oral dryness and cause discomfort. Allow pt to take PO as tolerated for pleasure and comfort; no dietary restriction or limitations. Keep an oscillating fan available to provide circulating air movement across the face to assist in the relief of dyspnea. and family agree to plan of comfort. de escalate support stop OLE and IVH improve resp distress and work to free him from restraints and allow him to be medicated for comfort, relief of agitation, resp distress etc.was provided for informed, good-amy decisions. 5. Emotions expressed by family were acknowledged and addressed. 6.Dying patients fear dyspnea and pain, therefore, symptom control is one cornerstone of pulmonary palliative care. Dyspnea is a prominent symptom of the patient with advanced respiratory disease of any cause: nearly all patients with COPD had dyspnea during the last 3 days of their lives. Providers routinely care for patients with chronic or advanced respiratory diseases and critical illnesses. The ATS recognizes: the growing importance and complexity of palliative care for patients with life-threatening and life-limiting diseases and disorders and the need for improving professional competence and teamwork in providing such care. The statement strongly endorses the concept that palliative care should be available to patients at all stages of illness and should be individualized based on the needs and preferences of the patient and the patients family. Clinicians should consult with palliative care specialists as appropriate for managing palliative care situations beyond the clinicians level of competence. (ATS Clinical Policy Statement: Palliative Care for Patients with Respiratory Diseases and Critical Illnesses; Adeola Ram, et al., for the [place] [employer], the [place] [employer], the [place] [employer], and the Respiratory Society* Diagnosis and Management of Stable Chronic Obstructive Pulmonary Disease: A Clinical Practice Guideline Update from the [place] [employer], [place] [employer], [place] [employer], and Respiratory Society . Nevaeh Trimmer Hand Med. 2011;155:179-191.) 7. Dying process: Discussed changes pt may move through in the dying process including but not limited to sleeping more, disorientation when awake, restlessness, diminished senses/inability to respond to stimulus although ability to be aware of them remains intact longer, and changes in body temperatures, skin changes/mottling/cyanosis, respiratory pattern changes, and oral secretions. Family verbalized understanding. The goal is to assure a peaceful . 8. Oxygen at EOL: For patients at the end of life, oxygen delivered by a nasal cannula provides no additional symptomatic benefit for relief of refractory dyspnea in patients with life-limiting illness compared with room air: there's a point at which that the oxygen level gets so low that it's no longer compatible with life. By providing supplemental oxygen, the dying process will be unnecessarily prolonged. Please use less burdensome but more effective strategies such as comfort care meds, oscillating fan, massage, repositioning, etc. (Ela AP, Stephanie CF, Liseth PA, et al. Effect of palliative oxygen versus room air in relief of breathlessness in patients with refractory dyspnoea: a double-blind, randomised controlled trial. Lancet. 2010;376(0051):990-115. doi:10.1016/[id number](25)97551-4) 9. Secretions at EOL/management: I discussed with family that as the level of consciousness decreases in the dying process, patients lose their ability to swallow and clear oral secretions. As air moves over the secretions, which have pooled in the oropharynx and bronchi, the resulting turbulence produces noisy ventilation with each breath, described as gurgling or rattling noises. While there is no evidence that patients find this rattle disturbing, evidence from bereaved surveys suggests the noises can be disturbing to the patients visitors and caregivers who may fear that the patient is choking to . We recommend a combination of Non-Pharmacological and Pharmacological Treatments: * 1. Position the patient on their side or in a semi-prone position to f acilitate postural drainage * 2. Communication with family and caregivers to reaffirm commitment to their loves ones care, reduce anxiety and fears. * 3. Gentle oropharyngeal suctioning is used although this can be ineffective when fluids are beyond the reach of the catheter. Avoid deep suctioning as it is very irritating. Note that frequent suctioning is disturbing to both the patient and the visitors. * 4. Reduction of fluid intake. * 5. Consider a 1-2 min Trendelenburg positioning, to move fluids up into the oropharynx for easier removal BUT note that ASPIRATION RISK WILL INCREASE. * 6. Muscarinic receptor blockers (anti-cholinergic drugs) are most often used: glycopyrrolate (Robinul), scopolamine (Transderm Scop), hyoscyamine and atropine. Of these, I prefer to using glycopyrrolate as first line treatment, because it is a quaternary amine (therefore does not cross the blood-brain barrier) which reduces the potential anti cholinergic agent associated RESPIRATORY DIRECTOR toxicity (sedation, delirium). * 7. Glycopyrrolate has five times the anti-secretory potency compared to atropine, while scopolamine dries/thickens secretions and causes dry mouth, which may be more distressing to the patient and detract from comfort. Time Involved in Meetinmin [facility] HIGH Thank you for allowing us to participate in the ongoing care of this patient. Please don't hesitate to call or page with any additional concerns. Dr. Aliza Ramírez DNP Director, Palliative Care
--- NOTE | 2023-10-26 15:29 | Surgery Progress Note ---
Date of Service October 26, 2023 Assessment & Plan (1) Palliative care by specialist: Plan: Continue comfort measures. No new recommendations. Admission and Anticipated Discharge Date Admission Date: October 17, 2023 Subjective Pt is comfort care. Seen by palliative care yesterday and plans outlined in chart. Nurse reports dark tarry bowel movement Not responsive to questions, moans to voice. Physical Exam Gastrointestinal (Abdomen): Inspection/Auscultation: abdomen normal to inspection and + abdominal surgical incision (clean ); abdomen not distended Percussion/Palpation: abdomen soft; abdomen nontender and no guarding Neurologic: nonverbal Results & Data Vital Signs (Past 12 Hours) Vital Signs O2 Del Method O2 Flow Rate 10/26/23 07:20 Nasal Cannula 2
--- NOTE | 2023-10-26 16:41 | Hospitalist Progress Note ---
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 Laird on 10/17. EBL 25cc Patient did not make much progress post operatively, with decline overnight 10/24-10/25. Now transitioned to comfort measures only afternoon of 10/26 Plan Dispo: continued inpatient stay, comfort measures only Thank you for allowing hospitalist service to participate in the care of Mr Sanchez. Hospitalist service will follow along in AM. Please call with any questions/concerns. Admission and Anticipated Discharge Date Admission Date: October 17, 2023 Supervising Physician Co-Signing Physician Notes Attending Attestation - Chart reviewed in detail, care plan d/w PA Olinda Freeman. I agree w/ the thakur components of her documentation. POD #9 - s/p right-sided hemicolectomy with ileocolic anastomosis 2nd to cecal volvulus. Yesterday - 10/25/23 - transitioned to comfort care measures only. Remains on such. Support given to family by Ms Hintonadrianadanis. Fahad Schmid MD Subjective evaluated earlier this morning and patient was resting comfortably, nonverbal but did open his eyes revisited this afternoon with family present at bedside patient seemed to be more alert. Did appear comfortable Review of Systems Review of Systems: Unobtainable due to cognitive status Physical Exam Physical Exam: appears comfortable No respiratory distress Mild wet cough/secretions Results & Data Results & Data Vital Signs (Past 12 Hours) Vital Signs O2 Del Method O2 Flow Rate 10/26/23 07:20 Nasal Cannula 2 PG Care Time/CCT Total # of Minutes Spent Total Time Spent with Patient: Total time spent is greater than 50% in coordination of care (as documented) at patient's floor/unit and/or counseling patient: Coding Level of Care Code 80674 SUB INP/OBS CARE 10/03MIN Diagnoses Comfort measures only status Z51.5 Status post right hemicolectomy Z90.49
--- NOTE | 2023-10-27 09:02 | Surgery Progress Note ---
Date of Service October 27, 2023 Assessment & Plan (1) Palliative care by specialist: Plan: Continue comfort measures. No new recommendations. Admission and Anticipated Discharge Date Admission Date: October 17, 2023 Subjective He is lying in bed. Moans in response to voice. Does not respond to commands or questions. Physical Exam Gastrointestinal (Abdomen): Inspection/Auscultation: abdomen normal to inspection and + abdominal surgical incision (clean ); abdomen not distended Percussion/Palpation: abdomen soft; abdomen nontender and no guarding Results & Data Vital Signs (Past 12 Hours) Vital Signs O2 Del Method 10/27/23 07:31 Room Air
--- NOTE | 2023-10-27 15:25 | Hospitalist Progress Note ---
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 Laird on 10/17. EBL 25cc Patient did not make much progress post operatively, with decline overnight 10/24-10/25. Now transitioned to comfort measures only afternoon of 10/26 Plan Dispo: continued inpatient stay, comfort measures only Thank you for allowing hospitalist service to participate in the care of Mr Sanchez. Hospitalist service will follow along in AM. Please call with any questions/concerns. Admission and Anticipated Discharge Date Admission Date: October 17, 2023 Subjective appears comfortable, RN Reports periods of restlessness at bedside, confused and repeats herself. Review of Systems Review of Systems: Unobtainable due to cognitive status Physical Exam Physical Exam: appears comfortable No respiratory distress cough decreased from yesterday Results & Data Results & Data Vital Signs (Past 12 Hours) Vital Signs O2 Del Method 10/27/23 07:31 Room Air PG Care Time/CCT Total # of Minutes Spent Total Time Spent with Patient: Total time spent is greater than 50% in coordination of care (as documented) at patient's floor/unit and/or counseling patient: Coding Level of Care Code 62650 SUB INP/OBS CARE 35MIN Diagnoses Comfort measures only status Z51.5 Status post right hemicolectomy Z90.49
[2023-10-27] MEDS: OLANZapine ZYDIS 5 MG ORALLY DIS. TAB PO SCH (20:21)
--- NOTE | 2023-10-28 08:28 | Surgery Progress Note ---
Date of Service October 28, 2023 Assessment & Plan (1) Cecal volvulus: Plan: Patient is s/p ex lap and R hemicolectomy for cecal volvulus. secondary to severe underlying dementia has not been able to make much progress Saturday afternoon he was evaluated by palliative care and after discussions with family has been transitioned to comfort measures Nothing new to add at this time from surgical perspective Appreciate hospitalists and palliatives assistance with patient Admission and Anticipated Discharge Date Admission Date: October 17, 2023 Supervising Physician Co-Signing Physician Notes Patient seen and examined, visited and discussed with family for approximately 30 minutes. Status post laparotomy with right hemicolectomy and primary anastomosis for cecal volvulus. Since his surgery he has failed to have meaningful recovery of his mental capacity. He does have significant underlying dementia. His bowels appeared to be working. He has had issues with aspiration of his secretions as well as liquids. On Saturday the family visited with palliative care and agreed to move towards comfort measures. He continues to be combative when agitated but also very somnolent. He is able to take in small amounts of liquids. On exam his abdomen is soft, nondistended, nontender. Incision without infection. [place] in place. I had a long discussion with the patient's family. His is somewhat limited by her own underlying dementia, but her daughter was present and is apparently the power of advisor to command in combat. They understand that it appears that the surgery and anastomosis is healing well, however prognosis is very poor given his inability to recover from the insult of surgery and anesthesia. From a surgery perspective we will remove his lucrecia in the next few days. He can have a diet as he tolerates. Given their move towards comfort measures and no acute surgical needs, we will ask the medicine doctors to take over his primary. We appreciate internal medicine and palliative care's assistance with this patient. Surgery will continue to follow peripherally. Subjective Patient lying in bed. Appears restless Physical Exam Physical Exam: lying in bed, restless Gastrointestinal (Abdomen): Inspection/Auscultation: + abdominal surgical incision (c/d/i with midline lucrecia, no signs of infection); abdomen not distended Percussion/Palpation: abdomen soft Results & Data Vital Signs (Past 12 Hours) Vital Signs O2 Del Method O2 Flow Rate 10/28/23 07:36 Nasal Cannula 2 PG Care Time/CCT Total # of Minutes Spent Total Time Spent with Patient: Total time spent is greater than 50% in coordination of care (as documented) at patient's floor/unit and/or counseling patient: Coding Level of Care Code 22207 Post Operative Follow-Up Diagnoses Cecal volvulus K56.2
[2023-10-28] MEDS: HYDROmorphone INJ 0.5 MG/0.5 ML SYR IV PRN (11:59)
--- NOTE | 2023-10-28 15:42 | Hospitalist Progress Note ---
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 Laird on 10/17. EBL 25cc Patient did not make much progress post operatively, with decline overnight 10/24-10/25. Now transitioned to comfort measures only afternoon of 10/26 Plan Dispo: continued inpatient stay, comfort measures only Hospitalist team will take over as primary Admission and Anticipated Discharge Date Admission Date: October 17, 2023 Supervising Physician Co-Signing Physician Notes Attending Attestation - Chart reviewed in detail, care plan d/w ANITHA Freeman. I agree w/ the thakur components of her documentation. POD #10 - s/p right-sided hemicolectomy with ileocolic anastomosis 2nd to cecal volvulus. Did very poorly post-operatively on multiple levels. 10/25/23 - transitioned to comfort care measures only. Cont such. Fahad Schmid MD Subjective Patient restless when examined this morning - pulling at gown Rexamined later after received medications and appears much more comofrtbale mubling occasionally Review of Systems Review of Systems: Unobtainable due to cognitive status Physical Exam Physical Exam: No respiratory distress cough decreased from yesterday Results & Data Results & Data Vital Signs (Past 12 Hours) Vital Signs O2 Del Method O2 Flow Rate 10/28/23 07:36 Nasal Cannula 2 PG Care Time/CCT Total # of Minutes Spent Total Time Spent with Patient: Total time spent is greater than 50% in coordination of care (as documented) at patient's floor/unit and/or counseling patient: Coding Level of Care Code 46365 SUB INP/OBS CARE 10/03MIN Diagnoses Comfort measures only status Z51.5 Status post right hemicolectomy Z90.49
--- NOTE | 2023-10-29 08:41 | Palliative Family Discussion ---
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 For example bc pt is calmer today she feels he is getting better and keeps asking when he can come home. Other Healthcare Provider Participation: None Meeting Location: telephonic The patient's surrogate medical decision maker participated: yes Lissette MORGAN Legally authorized health care proxy: Usman is POA Other surrogate: pt but she has advancing dementia as well A family meeting was held for ANA MARIA ALMODOVAR. This meeting was necessary for determining the appropriate course of treatment. Bautista is much calmer today, less agitated and symptoms improved with scheduled Zyprexa ODT. He is also showing improved resp status without dyspnea, excess secretion and use of accessory muscles since stopping OLE and IVF etc. He is at times combative and dementia related agitation remains exacerbated, likely will have more terminal agitation given his underlying hx. Topics of Discussion Topics of Discussion: 1. s/p Right Hemicolectomy with ileocoloc anastamosis complicated by resp failure, FTT, encephalopathy and rapid decline of underlying dementia, declining PS, organ failure; s/p ex lap and R hemicolectomy for cecal volvulus. secondary to severe underlying dementia has not been able to make progressive recovery 2. Intermittent agitation and combativeness through the weekend - primary team added scheduled Zyprexa along with prn dose. Today he is calmer and additionally, with cessation of OLE, resp status has calmed down and secretions much improved. As a result now thinks he is making a recovery and will get "better" - i.e., back to prior baseline and can return home. She is having a lot of difficulty processing information, does not grasp his EOL trajectory with any retention. Every time someone brings it up to her, she is re-traumatized per daughter. Daughter feels this recurrent trauma emotionally is exacerbating mother's dementia symptoms, her sundowning has worsened and she is not able to follow commands. Daughter would like limited communication to pt /her mother and asks that discussions re EOL transitions, changes etc are filtered through her and she can determine what needs to be shared with and when. I advised I would communicate this to primary teams. 3. Pt remains on comfort care. Symptoms improving. Care mgt to assist family with dispo planning. Other Content of Meetin. Opportunity given for participants to speak and ask questions. 2. Participants were assured of attention to patient comfort. 3. Reassurance provided. 4. Support was provided for informed, good-amy decisions. 5. Emotions expressed by family were acknowledged and addressed. 6. POND SAWY[place] in place 7. Plan of Care: care mgt to assist with dispo planning if he remains stable next few days Time Involved in Meeting: I spent 75 minutes overall addressing this case: 5 in medical data review/discussion with referring provider(s) and/or preparation for the visit 10 in direct interaction with the patient earlier this morning 45 Advance Care Planning/Goals of Care discussions as detailed above in note (must be >16min) 5 in subsequent review and synthesis of assessment and plan 10 in communicating with other providers regarding the patient's case: nursing primary teams, gen surg Thank you for allowing us to participate in the ongoing care of this patient. Please don't hesitate to call or page with any additional concerns. Dr. Aliza Ramírez DNP Director, Palliative Care
--- NOTE | 2023-10-29 09:07 | Hospitalist Progress Note ---
Date of Service October 29, 2023 Assessment & Plan (1) Comfort measures only status: Plan: Decision made by family 10/25 to convert to comfort measures only - Palliative care following - continue scopolamine - zyprexa prn - diluadid prn - lorazepam prn - tawny rn -Add zyprexa BID for comfort/agitation w/ improvement and continuing Palliative meeting/consult last evening. 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 Laird on 10/17. EBL 25cc Patient did not make much progress post operatively, with decline overnight 10/24-10/25. Now transitioned to comfort measures on 10/26 Plan Dispo: continued inpatient stay, comfort measures only Admission and Anticipated Discharge Date Admission Date: October 17, 2023 Supervising Physician Co-Signing Physician Notes The patient was not seen by me. The chart was reviewed. Case discussed with ANITHA Martinez. Agree with assessment and plan Subjective Eval this morning, no acute issues by nursing. Seems a little restless but not uncomfortable. Nursing to change scopalamine patch, provide dilaudid as needed. Family meeting/palliative discussion last evening. Limiting information relayed to to prevent re-traumatizing her. CM to follow if remaining inpatient/stable for several days. Review of Systems Review of Systems: Unobtainable due to cognitive status Physical Exam Physical Exam: General: 83yo male, chronically ill appearing, laying in bed, pulling at catheter at times but NAD Head atraumatic, mm dry, trachea midline Resp: even/unlabored, on room air CV: RRR/slightly tachy/low 100s at times, no significant m/r/g, no pitting edema Mon w/ concentrated urine Psych: alert to person, not place/name/events Results & Data Results & Data Vital Signs (Past 12 Hours) Vital Signs O2 Del Method 10/28/23 22:32 Room Air PG Care Time/CCT Total # of Minutes Spent Total Time Spent with Patient: Total time spent is greater than 50% in coordination of care (as documented) at patient's floor/unit and/or counseling patient: Coding Level of Care Code 34856 SUB INP/OBS CARE Diagnoses Comfort measures only status Z51.5 Status post right hemicolectomy Z90.49
--- NOTE | 2023-10-30 08:40 | Hospitalist Progress Note ---
Date of Service October 30, 2023 Assessment & Plan (1) Comfort measures only status: Plan: Decision made by family 10/25 to convert to comfort measures only - Palliative care following - continue scopolamine - zyprexa prn - diluadid prn - lorazepam prn - tawny rn -Add zyprexa BID for comfort/agitation w/ improvement and continuing Palliative meeting/consult last evening. To LIMIT discussions w/ to prevent trauma -- should be discussed w/ juanjo es/updates w/ daughter who is POA CM to follow if remaining inpatient Updated stepdalance, Lissette, evening 10/29. Continued inpatient stay on comfort measures. No PO intake/decreased output. Symptoms controlled w/ ordered medications and suspect patient likely with days left at this point and will remain inpatient at this time. Support provided. 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 Laird on 10/17. EBL 25cc Patient did not make much progress post operatively, with decline overnight 10/24-10/25. Now transitioned to comfort measures on 10/26 Plan Dispo: comfort measures only updated POA 10/29, ongoing inpatient stay Admission and Anticipated Discharge Date Admission Date: October 17, 2023 Supervising Physician Co-Signing Physician Notes The patient was not seen by me. The chart was reviewed. Case discussed with ANITHA Martinez. Agree with assessment and plan Subjective Evaluated this morning, resting in bed. Does not appear to be in distress. No PO intake. Mon with minimal dark/concentrated urine. Remains on comfort measures, updated POA last evening about continued inpatient stay. visiting today but was able to eval without her present to prevent distressing her based on prior discussions. Continued inpatient stay. Physical Exam Physical Exam: General: 83yo male, chronically ill appearing, resting in bed, NAD, RR 18 Head atraumatic, mm dry, trachea midline Resp: even/unlabored, on room air CV: RRR/slightly tachy/low 100s at times, no significant m/r/g, no pitting edema GI: +BS, slight distension, no overt tenderness Mon w/ decreased output/increased concentration Psych: not alert to person/place/time PG Care Time/CCT Total # of Minutes Spent Total Time Spent with Patient: Total time spent is greater than 50% in coordination of care (as documented) at patient's floor/unit and/or counseling patient: Coding Level of Care Code 50120 SUB INP/OBS CARE 1/25MIN Diagnoses Comfort measures only status Z51.5 Status post right hemicolectomy Z90.49
--- NOTE | 2023-10-30 12:06 | Surgery Progress Note ---
Date of Service October 30, 2023 Assessment & Plan (1) Status post right hemicolectomy: Plan: pt visited, he is resting in bed. less agitated appearing than previous lucrecia were removed without issues. belly is soft. incision well approximated. no signs of infection I did place steri strips, these may fall off on their own or may be removed in a week pt continues on comfort measures appreciate medicine and palliative care's assistance Admission and Anticipated Discharge Date Admission Date: October 17, 2023 Subjective Patient sleeping, mouth breathing. Not communicative during my visit Physical Exam Gastrointestinal (Abdomen): Inspection/Auscultation: + abdominal surgical incision (c/d/i with midline lucrecia, no signs of infection) Percussion/Palpation: abdomen soft; abdomen nontender Results & Data Vital Signs (Past 12 Hours) Vital Signs O2 Del Method 10/30/23 10:29 Room Air PG Care Time/CCT Total # of Minutes Spent Total Time Spent with Patient: Total time spent is greater than 50% in coordination of care (as documented) at patient's floor/unit and/or counseling patient: Coding Level of Care Code 20939 Post Operative Follow-Up Diagnoses Status post right hemicolectomy Z90.49
--- NOTE | 2023-10-30 14:01 | Discharge Summary ---
Date of Service October 30, 2023 Admission HPI Per Admitting Provider Patient is a pleasant 83 yo male with PMH of HTN, confusion, hiatal hernia , chest pain, colitis, that presented to the [facility] ER today with c/o abdominal pain that has been on-going for the last few weeks. The pain became worse today which is what prompted him to seek care. He reports pain is currently a 2/10 in upper abdomen, denies nausea, vomiting, diarrhea change in bowel habits. Thinks his last BM was yesterday. He is accompanied with his . Past surgical history includes open appendectomy and tonsillectomy. He denies blood thinners. Has been NPO since last night. While in the ER he underwent an abdominal Ct scan showing IMPRESSION: 1. 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 There is also dilation of the distal ileum with interloop edema and small volume of abdominal pelvic ascites. 2. Nonspecific borderline enlarged lymph nodes of the right lower quadrant mesentery. 3. No pneumoperitoneum. 4. Prostatomegaly with evidence of chronic outlet obstruction. 5. Cholecystectomy with biliary ductal dilation which may be postsurgical. This could be correlated with laboratory analysis. WBC are not elevated at 8.7 On exam he appears in no acute distress, his abdomen is distended and TTP in epigastric area, +BS, lungs CTA bilaterally. He is scheduled for a Exploratory Laparotomy, Possible Bowel Resection, Possible Colostomy with Surgeon: Zenon Laird Admission Exam Per Admitting Provider Physical Exam: alert oriented, pleasant Constitutional: cooperative and comfortable; no acute distress ENMT: external ear and nose normal, oropharynx normal Neck: trachea midline, no thyromegaly Respiratory: normal respiratory effort, lungs clear to auscultation Cardiovascular: RRR, no murmur, no edema Gastrointestinal (Abdomen): Inspection/Auscultation: + abdomen distended, normal bowel sounds and + abdominal surgical scar Percussion/Palpation: + abdomen tender and + abdomen firm Musculoskeletal: no cyanosis or clubbing, extremities motor strength 5/5 Skin: no rashes, warm and dry Psychiatric: A+Ox3, euthymic affect Principal Diagnosis Cecal Volvulus Discharge Exam 83yo male laying in bed, family at bedside, no response to verbal stimuli/sternal rubbing No pulses, pupils fixed/dilated, nonreactive to light no respirations, no heart sounds, pulses not able to be palpated ward w/ scant concentrated urine Discharge Data Allergies Allergy/AdvReac Type Severity Reaction Status Date / Time hydromorphone AdvReac Intermediate GI SYMPTOMS Verified 10/17/23 11:48 Consultations 10/17/23 12:23 Consult General Surgery Stat 10/17/23 18:27 Consult Hospitalist Routine 10/25/23 08:06 Consult Palliative Care Routine Procedures Performed Operation Date: 10/17/23 10:20 Actual Procedures p Right Hemicolectomy with ileocoloc anastamosis(Not Applicable) - Zenon Laird, , FACS Ordered Studies Abdomen/Pelvis CT 10/17/23 10:[address] WITH IV CONTRAST CT DOSE: 893.41 mGy.cm HISTORY: Acute severe abdominal pain. severe ain TECHNIQUE: Multiaxial CT images of the abdomen and pelvis were performed following the IV administration of 94 cc of Optiray, A dose lowering technique was utilized adhering to the principles of ALARA. COMPARISON STUDY: 10/24/2016. FINDINGS: Mild cardiomegaly with extensive coronary artery calcifications. Trace pleural effusions with mild bibasilar densities suggestive of atelectasis versus scarring. No free air identified. Unremarkable spleen, pancreas and adrenal glands. The gallbladder appears surgically absent. Intrahepatic and extrahepatic biliary ductal dilation redemonstrated with the common bile duct measuring up to 9 mm. Scattered hepatic cysts measure up to 1.9 cm. Atrophy of the left hepatic lobe. The portal vein appears patent. Subcentimeter probable cyst of the inferior pole left kidney. Left renal cysts measure up to 5.1 cm. No hydronephrosis. Nonspecific urinary bladder wall thickening with distended urinary bladder. Prostatomegaly. Extensive atherosclerosis of the aorta and branch vessels. Unremarkable IVC. No lymphadenopathy identified. Partial distention of the rectum with nonspecific wall thickening. Small volume of abdominopelvic ascites. 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 Upstream ileum is fluid-filled and dilated measuring up to 3.5 cm with high-grade obstruction. Lymph nodes of the right lower quadrant mesentery measure up to 10 mm. Colonic diverticulosis. No acute fracture. Degenerative changes of the spine, pelvis and hips. IMPRESSION: 1. 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 There is also dilation of the distal ileum with interloop edema and small volume of abdominal pelvic ascites. 2. Nonspecific borderline enlarged lymph nodes of the right lower quadrant mesentery. 3. No pneumoperitoneum. 4. Prostatomegaly with evidence of chronic outlet obstruction. 5. Cholecystectomy with biliary ductal dilation which may be postsurgical. This could be correlated with laboratory analysis. ACT 112: Negative or not required by law. The above report was generated using voice recognition software. It may contain grammatical, syntax or spelling errors. Dictated: 10/17/2023 11:30 AM Transcribed: 10/17/2023 12:07 PM Jose Guadalupe [id number] [facility]_Luis Angel [id number] Electronically signed by: Jet Worthington M.D. 10/17/2023 12:11 PM Chest X-Ray 10/17/23 17:09 XR chest 1V portable CLINICAL HISTORY: post-op monitoring COMPARISON STUDY: Chest radiograph September 17, 2023. FINDINGS: Lucency under the hemidiaphragms represents pneumoperitoneum which is expected in the early postoperative setting. Tip of nasogastric tube is within the proximal body of the stomach. Bibasilar opacities favor atelectasis. No evidence for pulmonary edema. No pneumothorax or pleural effusion is present. Cardiomediastinal silhouette is unremarkable. IMPRESSION: 1. Pneumoperitoneum which is expected in the early postoperative setting. 2. Bibasilar opacities suggestive of atelectasis. 3. Tip of nasogastric tube within the proximal body of the stomach. ACT 112: Negative or not required by law. Electronically signed by: Haja Rodriguez M.D. 10/17/2023 5:44 PM KUB X-Ray 10/21/23 06:00 KUB HISTORY: Postop. History of cecal volvulus. r/o ileus COMPARISON: Abdomen and pelvis CT 10/17/2023. FINDINGS: Midline skin lucrecia are noted. There are gas-filled dilated loops of large and small bowel seen throughout the abdomen. Findings favor a postoperative ileus given the recent postoperative change. There are suture material in the right side the abdomen. No renal calculi. No ureteral calculi. No pneumoperitoneum or pneumatosis. IMPRESSION: Mildly dilated gas-filled loops of large and small bowel seen throughout the abdomen. Findings favor a postoperative ileus at this time. ACT 112: Negative or not required by law. Electronically signed by: Nikita Pineda M.D. 10/21/2023 7:20 AM KUB X-Ray 10/21/23 21:11 KUB CLINICAL HISTORY: Enteric tube placement. FINDINGS: An AP, portable, upright view of the lower chest and upper abdomen is compared to study performed earlier the same day 10/21/2023 and correlated with abdominal CT dated 10/17/2023. An enteric tube is in place. The tip projects below the diaphragm over the proximal stomach. There is persistent gaseous distention of the small bowel loops with air-fluid levels. No intraperitoneal free air is clearly seen below the diaphragm. Midline skin clips are in place. No abnormal abdominal calcifications are seen. There is advanced spondylosis throughout the imaged spine. IMPRESSION: 1. An enteric tube has been placed as above. 2. There is persistent gaseous distention of the small bowel loops with air- fluid levels. This could represent ileus versus obstruction. Correlate clinically. Electronically signed by: Todd Aleman M.D. 10/22/2023 8:28 AM KUB X-Ray 10/22/23 07:00 KUB HISTORY: Postop. f/u ileus COMPARISON: KUB 10/21/2023. FINDINGS: Nasogastric tube terminates in the stomach. Dilated gas-filled loops of large and small bowel are again seen throughout the abdomen. This favors a postoperative ileus. Lower midline skin lucrecia are again noted from the recent incision. Suture material within the right midabdomen. No renal calculi. No ureteral calculi. No pneumoperitoneum or pneumatosis. IMPRESSION: 1. Multiple dilated gas-filled loops of large and small bowel again seen throughout the abdomen. This suggests a postoperative ileus. 2. Nasogastric tube terminates in the stomach. ACT 112: Negative or not required by law. Electronically signed by: Nikita Pineda M.D. 10/22/2023 9:34 AM KUB X-Ray 10/23/23 06:00 KUB HISTORY: Postoperative ileus. Follow-up. COMPARISON: KUB 10/22/2023. FINDINGS: Midline skin lucrecia again noted. Multiple dilated gas-filled loops of large and small bowel are seen throughout the abdomen. This is similar to the prior study. Suture material within the right side the abdomen. A nasogastric tube is not identified and may have been removed in the interval. No renal calculi. No ureteral calculi. No pneumoperitoneum or pneumatosis. IMPRESSION: No significant change in the multiple dilated gas-filled loops of large and small bowel seen throughout the abdomen. Again, this favors a postoperative ileus. Underlying bowel obstruction would be difficult to exclude. ACT 112: Negative or not required by law. Electronically signed by: Nikita Pineda M.D. 10/23/2023 8:27 AM Chest X-Ray 10/23/23 07:03 SINGLE VIEW CHEST CLINICAL HISTORY: Hypoxia FINDINGS: An AP, portable, upright chest radiograph is compared to study dated 10/17/2023. An enteric tube has been removed. The heart is enlarged noting atherosclerotic calcification of the thoracic aorta. There is pulmonary vascular congestion. There are small pleural effusions with bibasilar consolidation. No pneumothorax is seen. The skeletal structures are osteopenic. The bony thorax is grossly intact. There are distended and gas-filled loops of bowel seen in the upper abdomen. IMPRESSION: 1. Cardiomegaly with pulmonary vascular congestion. 2. Small pleural effusions with bibasilar consolidation. ACT 112: Negative or not required by law. Electronically signed by: Todd Aleman M.D. 10/23/2023 7:50 AM Chest X-Ray 10/25/23 00:02 XR chest 1V portable CLINICAL HISTORY: LLL rhonchi COMPARISON STUDY: Chest radiograph October 23, 2023. FINDINGS: Low lung volumes are again noted. There is no pneumothorax or pleural effusion. Cardiomediastinal silhouette is stable. Perihilar and bibasilar opacities have slightly improved. Pulmonary vascular congestion has improved. IMPRESSION: 1. Slight improvement in pulmonary vascular congestion. 2. Interval decrease in perihilar and bibasilar opacities which could reflect an infectious process or pulmonary edema. ACT 112: Negative or not required by law. Electronically signed by: Haja Rodriguez M.D. 10/25/2023 6:56 AM Hospital Course (1) Status post right hemicolectomy: Admitted for abdominal pain and found to have cecal volvulus on CTAP, underwent RIGHT hemicolectomy with side-side functional end-to-end ileocolic anastomosis with Dr. Laird on 10/17. EBL 25cc. Patient had NGT in place and restraints earlier on in stay which had since been discontinued and diet was attempted with bowel movements throughout however high risk for recurrance and developed ileus post-op w/ nausea and vomiting and need for replacement prior to not being able to make meaningful recovery and continued decline overnight 10/24-10/25 and discussion with family/POA step- daughter miles and palliative consultation undertaken with decision for comfort measures and continued inpatient stay/supportive care. Patient was made comfortable with pain control with IV dilaudid, agitation w/ ativan and ODT zyprexa and was able to have time with AM 10/30 and appearing comfortable and passed when she left to get lunch with Miles. Family at bedside during pronouncement, support provided. (2) Comfort measures only status: Decision made by family 10/25 to convert to comfort measures only given continued decline/not making recovery. Palliative consulted, placed on scopalamine patch and medications available w/ zyprexa ODT, ativan, dilaudid for comfort and was comfortable at time of passing. Limited discussions w/ during end of life/supportive care given to prevent trauma but was discussed during passing at bedside as above. (3) Failure to thrive in adult: as above, comfort measures only/supportive care during end of life Plan passed peacefully, family updated at bedside Total Time Total Time Spent Total Time Spent (In Minutes): 35 Discharge Plan Discharge Items Patient Disposition: Discharge Diagnosis: right hemicolectomy Addtl Attending Provider Instructions: Supervising Physician Co-Signing Physician Notes The patient was not seen by me. The chart was reviewed. Case discussed with ANITHA Martinez. The patient earlier today, October 30 Coding Level of Care Code 58127 INP/OBS DISCH >30 MIN Diagnoses Status post right hemicolectomy Z90.49 Comfort measures only status Z51.5 Failure to thrive in adult R62.7
--- NOTE | 2023-10-30 14:05 | Death Pronouncement Note ---
Date of Service October 30, 2023 Pronouncement Note Admission Date October 17, 2023 Date and Time of Date of : 10/30/23 Time of : 13:35 Preliminary Cause of (1) Cecal volvulus: (2) Dementia with behavioral disturbance: Summary Patient admitted for abdominal pain/found to have cecal volvulus requiring s urgery w/ hemicolectomy and unfortunately with his underlying baseline dementia was unable to make meaningful recovery and palliative medicine was consulted and decision was made to make comfort measures. Symptoms well controlled during end of life, was with him all morning and passed peacefully. Family updated at bedside/support provided. Additional Data Confirmation of : no pulse, no respirations, no heart sounds and pupils fixed and dilated Pronouncement Performed By: Advanced Practice Provider (GENES[facility]) Family: at bedside Attending/PCP notified?: Yes Attending physician: Nico Peters MD Was code activated?: No Autopsy requested?: No
== END 2023-10-30 17:08 | disposition expired | DRG 329 ==
LOC: ED 09:08 → 3W 13:02 → PACUINP 16:26 → SUATTDRO 16:26 → 3W 18:33
DX: F05 Delirium due to known physiological condition; Z79.899 Other long term (current) drug therapy; R62.7 Adult failure to thrive; J90 Pleural effusion, not elsewhere classified; Z51.5 Encounter for palliative care; F03.918 Unspecified dementia, unspecified severity, with other behavioral disturbance; Z88.8 Allergy status to other drugs, medicaments and biological substances; Z79.82 Long term (current) use of aspirin; I10 Essential (primary) hypertension; K56.2 Volvulus; K56.7 Ileus, unspecified; G93.41 Metabolic encephalopathy